=== PATIENT | female | born 1960 | race Caucasian/White ===

== ENCOUNTER 2017-06-21 06:54 | Emergency (ER) | payer MEDICARE, OTHER ==
[~2017-06-21] VITALS: Ht 167.6 cm; Wt 75.0 kg
[~2017-06-21 06:54] MED LIST: ALPR1 PO; AMBI5TAB PO; AMIT100 PO; AMLO5 PO; CEPH500 PO; CORE25TA PO; DIOV80TA4 PO; ESTR2TAB PO; LANTUS2P SC; LEXA20TA PO; LORTA5 PO; PLAV75TA PO; SITA100 PO; SYNT150T PO; ZANA4TAB PO
[2017-06-21 06:57] VITALS: BP 117/57; PULSE 62; RESP 16; TEMP 97.8; O2SAT 97
[2017-06-21] MEDS ORDERED: DIAZ5 PO (07:36)
[2017-06-21] MEDS ORDERED: ESTR2TAB4 PO (07:36)
[2017-06-21] MEDS ORDERED: HYDR-3583 PO (07:36)
[2017-06-21] MEDS ORDERED: VICT18IN SQ (07:36)
[2017-06-21] MEDS ORDERED: SYNT175T PO (07:36)
[2017-06-21] MEDS ORDERED: SITA25 PO (07:36)
[2017-06-21] MEDS ORDERED: SIMV10TA PO (07:36)
[2017-06-21] MEDS ORDERED: TIZA4CAP3 PO (07:36)
[2017-06-21] MEDS ORDERED: CARV6.25 PO (07:36)
[2017-06-21] MEDS ORDERED: LEXA20TA PO (07:36)
[2017-06-21] MEDS ORDERED: PANT20 PO (07:36)
[2017-06-21] MEDS ORDERED: AMBI10TA PO (07:36)
[2017-06-21] MEDS ORDERED: AMLO10TA2 PO (07:36)
[2017-06-21] MEDS ORDERED: PLAV75TA29 PO (07:36)
[2017-06-21] MEDS ORDERED: ASPI81CH CHEW (07:36)
--- NOTE | 2017-06-21 08:11 | PD ---
HPI Chief Complaint: Pain: Acute or Chronic Time Seen by Provider: 08:07 Travel History International Travel<30 days: No Contact w/Intl Traveler<30days: No Traveled to known affect area: No History of Present Illness HPI 56-year-old female patient with history of chronic neck pain and back pains, presents to the ER today because she states that she has had 2 weeks' history of left-sided neck pain radiating to the left scalp and forehead area which worsened after she fell 2 weeks ago. She states that the left side of her forehead is numb. She has been getting Botox for this issue in the past. She states that she had chills several nights ago but denies any fevers or any other symptoms. Modifying Factors: None Associated Signs & Symptoms: Left-sided neck and head pain, acute on chronic Risk Factors: Chronic neck pains and headache PFSH Past Medical History Cardiac Catheterization: Yes (10/2011) High Cholesterol: Yes Cirrhosis: Yes (ALEXANDRE) Coronary Artery Disease: Yes Diabetes: Yes Patient Takes Glucophage: No Hypertension: Yes Respiratory: Yes (-2011) Renal Failure: Yes Thyroid Disease: Yes (HYPO) ?: Not Menopausal: Yes Past Surgical History Cholecystectomy: Yes (01/2012) Coronary Artery Bypass Graft: Yes (-2011) Coronary Stent: Yes () Hysterectomy: Yes (1993) Tonsillectomy: Yes (1971) Social History Alcohol Use: No Tobacco Use: No Substance Use: No Allergies-Medications (Allergen,Severity, Reaction): Coded Allergies: butorphanol (Unverified Allergy, Severe, Hallucinations, 06/21/17) codeine (Unverified Allergy, Severe, Hives, 06/21/17) fentanyl (Unverified Allergy, Severe, Confusion, 06/21/17) morphine (Unverified Allergy, Severe, Hallucinations, 06/21/17) Reported Meds & Prescriptions Reported Meds & Active Scripts Active Reported Victoza Inj (Liraglutide Inj) 18 Mg/3 Ml Pen 1.8 Mg SQ DAILY Aspirin 81 Mg Chew 81 Mg CHEW DAILY Plavix (Clopidogrel Bisulfate) 75 Mg Tab 75 Mg PO DAILY Tizanidine (Tizanidine HCl) 4 Mg Cap 4 Mg PO TID Valium (Diazepam) 5 Mg Tab 5 Mg PO BID PRN Ambien (Zolpidem Tartrate) 10 Mg Tab 10 Mg PO HS PRN Lexapro (Escitalopram Oxalate) 20 Mg Tab 20 Mg PO DAILY Protonix (Pantoprazole Sodium) 20 Mg Tab 20 Mg PO DAILY Simvastatin 10 Mg Tab 10 Mg PO DAILY Amlodipine (Amlodipine Besylate) 10 Mg Tab 10 Mg PO DAILY Coreg (Carvedilol) 6.25 Mg Tab 6.25 Mg PO BID Hydrocodone-Acetaminophen 10-325 mg Tab 1 Tab PO Q4H PRN Synthroid (Levothyroxine Sodium) 175 Mcg Tab 175 Mcg PO DAILY Estrace (Estradiol) 2 Mg Tab 2 Mg PO DAILY Januvia (Sitagliptin Phosphate) 25 Mg Tab 25 Mg PO DAILY Review of Systems Except as stated in HPI: all other systems reviewed are Neg Physical Exam Narrative GENERAL: Well-developed middle age white female patient currently in mild distress. Awake and oriented 3. SKIN: Focused skin assessment warm/dry. HEAD: Atraumatic. Normocephalic. EYES: Pupils equal and round. No scleral icterus. No injection or drainage. ENT: No nasal bleeding or discharge. Mucous membranes pink and moist. NECK: Trachea midline. No JVD. Supple. No midline C-spine tenderness or step- offs. CARDIOVASCULAR: Regular rate and rhythm. No murmur appreciated. RESPIRATORY: No accessory muscle use. Clear to auscultation. Breath sounds equal bilaterally. GASTROINTESTINAL: Abdomen soft, non-tender, nondistended. Hepatic and splenic margins not palpable. MUSCULOSKELETAL: No obvious deformities. No clubbing. No cyanosis. No edema. NEUROLOGICAL: Awake and alert. No obvious cranial nerve deficits. Motor grossly within normal limits. Normal speech. PSYCHIATRIC: Appropriate mood and affect; insight and judgment normal. Data Data Last Documented VS Vital Signs Date Time Temp Pulse Resp B/P (MAP) Pulse Ox O2 Delivery O2 Flow Rate FiO2 06/21/17 06:57 97.8 62 16 117/57 (77) 97 Orders Orders Ketorolac Inj (Toradol Inj) (06/21/17 08:15) Ct Brain W/O Iv Contrast(Rout) (06/21/17 08:07) Ct Cerv Spine W/O Contrast (06/21/17 08:07) Hydromorphone Pf Inj (Dilaudid Pf Inj) (06/21/17 10:00) Ondansetron Inj (Zofran Inj) (06/21/17 10:00) MDM Medical Decision Making Medical Screen Exam Complete: Yes Emergency Medical Condition: Yes Medical Record Reviewed: Yes Interpretation(s) Last [address] 06/21/17 08 Signed Impressions: Service Date/Time: Wednesday, June 21, 2017 08:37 - CONCLUSION: No acute disease. Elie Jimenez Jr., MD Cervical Spine CT 06/21/17 0807 Signed Impressions: Service Date/Time: Wednesday, June 21, 2017 08:40 - CONCLUSION: No acute bony findings. Disc osteophyte complexes at C5-6 and C6-7 producing a mild-moderate degree of anatomic compromise which appear slightly more severe at the C5-6 level than the C6-7 level and asymmetric to the right. Further evaluation with MRI of the cervical spine on an elective basis would be suggested if clinically indicated Héctor Lubin MD Differential Diagnosis Headache and neck pain: Cervical radiculopathy versus muscle strain versus acute on chronic headaches versus acute fractures Narrative Course CT the of the brain did not show any signs of acute intracranial processes and CT of the neck shows severe degenerative disease which is consistent with previous history. I do not see any signs of acute injuries. At this point, it appears that the patient has an acute on chronic process and my plan would be to give her symptomatic relief or pain and have her follow-up with her primary care doctor regarding this issue. She can get MRI on an outpatient basis for further evaluation. We will give her further symptomatic relief or pain. Diagnosis Primary Impression: Neck strain Med/Other Pt SpecificInfo: Prescription(s) given, Med Stopped (do not take at the same time with Lortab tens) Scripts Hydrocodone-Acetaminophen (Lortab) 7.5-325 Mg Tab 1-2 TAB PO Q6H Y for PAIN, #12 TAB 0 Refills Prov: Jas Jaimes MD 06/21/17 Disposition: 01 DISCHARGE HOME Condition: Stable Jas Jaimes MD Jun 21, 2017 08:11
[2017-06-21] MEDS ORDERED: KETOROLAC TROMETHAMINE 60 MG/2 ML (IM) VIAL IM ONE (08:15)
--- NOTE | 2017-06-21 09:13 | RADRPT ---
EXAM DATE/TIME: 06/21/2017 08:40 [facility] COMPARISON: No previous studies available for comparison. INDICATIONS : Left-sided neck pain. RADIATION DOSE: 33.29 CTDIvol (mGy) MEDICAL HISTORY : Hypertension. Cardiovascular disease SURGICAL HISTORY : CABG Tonsillectomy. ENCOUNTER: Initial ACUITY: 2 weeks PAIN SCALE: 5/10 LOCATION: Left neck TECHNIQUE: Volumetric scanning of the cervical spine was performed. Multiplanar reconstructions in the sagittal, coronal and oblique axial planes were performed. Using automated exposure control and adjustment o f the mA and/or kV according to patient size, radiation dose was kept as low as reasonably achievable to obtain optimal diagnostic quality images. DICOM format image data is available electronically f or review and comparison. FINDINGS: VERTEBRAE: Normal vertebral body height. ALIGNMENT: No evidence of subluxation. C2-C3: The bony spinal canal is normal in size. No evidence of disc bulge or herniation. The neural forami na are bilaterally patent. C3-C4: The bony spinal canal is normal in size. No evidence of disc bulge or herniation. The neural forami na are bilaterally patent. C4-C5: The bony spinal canal is normal in size. No evidence of disc bulge or herniation. The neural forami na are bilaterally patent. C5-C6: Broad dorsal disc osteophyte, eccentric to the right with moderate indentation of thecal sac and mode rate asymmetrically right-sided foraminal stenosis. C6-C7: Broad dorsal disc osteophyte producing moderate indentation of the thecal sac. Slight bilateral sierra inal narrowing. C7-T1: The bony spinal canal is normal in size. No evidence of disc bulge or herniation. The neural forami na are bilaterally patent. CONCLUSION: No acute bony findings. Disc osteophyte complexes at C5-6 and C6-7 producing a mild-moderate degree of anatomic compromise wh ich appear slightly more severe at the C5-6 level than the C6-7 level and asymmetric to the right. Further evaluation with MRI of the cervical spine on an elective basis would be suggested if clinical ly indicated Héctor Lubin MD on June 21, 2017 at 9:06 Board Certified Radiologist. This report was verified electronically.
--- NOTE | 2017-06-21 09:13 | RADRPT ---
EXAM DATE/TIME: 06/21/2017 08:37 [facility] COMPARISON: No previous studies available for comparison. INDICATIONS : Left-sided headache. RADIATION DOSE: 56.35 CTDIvol (mGy) MEDICAL HISTORY : Hypertension. Cardiovascular disease SURGICAL HISTORY : CABG Tonsillectomy. ENCOUNTER: Initial ACUITY: 2 weeks PAIN SCALE: 4/10 LOCATION: Left cranial TECHNIQUE: Multiple contiguous axial images were obtained of the head. Using automated exposure control and adj ustment of the mA and/or kV according to patient size, radiation dose was kept as low as reasonably a chievable to obtain optimal diagnostic quality images. DICOM format image data is available electro nically for review and comparison. FINDINGS: CEREBRUM: An old small lacunar infarction involving the left basal ganglia. The ventricles are normal for age. No evidence of midline shift, mass lesion, hemorrhage or acute infarction. No extra-axial fluid col lections are seen. POSTERIOR FOSSA: The cerebellum and brainstem are intact. The 4th ventricle is midline. The cerebellopontine angle i s unremarkable. EXTRACRANIAL: The visualized portion of the orbits is intact. SKULL: The calvaria is intact. No evidence of skull fracture. CONCLUSION: No acute disease. Elie Jimenez Jr., MD on June 21, 2017 at 9:10 Board Certified Radiologist. This report was verified electronically.
[2017-06-21] MEDS ORDERED: HYDR-3534 PO (09:59)
[2017-06-21] MEDS ORDERED: ONDANSETRON HCL 4 MG/2 ML VIAL IM ONE (10:00)
[2017-06-21] MEDS ORDERED: HYDROmorphone HCL PF 1 MG/ML VIAL IM ONE (10:00)
== END 2017-06-21 10:47 | disposition home or self-care (01) ==
LOC: NEPE 06:54
DX: S16.1XXA Strain of muscle, fascia and tendon at neck level, initial encounter (principal); K74.60 Unspecified cirrhosis of liver; I25.10 Atherosclerotic heart disease of native coronary artery without angina pectoris; E11.22 Type 2 diabetes mellitus with diabetic chronic kidney disease; I12.9 Hypertensive chronic kidney disease with stage 1 through stage 4 chronic kidney disease, or unspecified chronic kidney disease; N18.9 Chronic kidney disease, unspecified; W19.XXXA Unspecified fall, initial encounter; Z79.02 Long term (current) use of antithrombotics/antiplatelets; Z79.82 Long term (current) use of aspirin
CPT/HCPCS: 70450; 72125; 96372; 99285; J1170; J1885; J2405

== ENCOUNTER 2017-06-27 01:32 | Inpatient (IN) | payer OTHER, MEDICARE ==
[2017-06-27] VITALS (14 sets, daily range): BP systolic 149–192; BP diastolic 70–95; PULSE 62–82; RESP 12–22; TEMP 97.9–98.4; O2SAT 94–99
[~2017-06-27] VITALS: Ht 167.6 cm; Wt 73.6 kg
[~2017-06-27 01:32] MED LIST changes: -ALPR1 PO; +AMBI10TA PO; -AMBI5TAB PO; -AMIT100 PO; +AMLO10TA2 PO; -AMLO5 PO; +ASPI81CH CHEW; +CARV6.25 PO; -CEPH500 PO; -CORE25TA PO; +DIAZ5 PO; -DIOV80TA4 PO; -ESTR2TAB PO; +ESTR2TAB4 PO; +HYDR-3534 PO; +HYDR-3583 PO; -LANTUS2P SC; -LORTA5 PO; +PANT20 PO; -PLAV75TA PO; +PLAV75TA29 PO; +SIMV10TA PO; -SITA100 PO; +SITA25 PO; -SYNT150T PO; +SYNT175T PO; +TIZA4CAP3 PO; +VICT18IN SQ; -ZANA4TAB PO
[2017-06-27] MEDS ORDERED: NITROGLYCERIN 0.4 MG SL 25 TABS/BTL SL ONE (03:00)
[2017-06-27] MEDS ORDERED: ASPIRIN 81 MG CHEW TAB PO ONE (03:00)
--- NOTE | 2017-06-27 03:42 | PD ---
HPI Chief Complaint: Chest Pain Time Seen by Provider: 02:55 Travel History International Travel<30 days: No Contact w/Intl Traveler<30days: No Traveled to known affect area: No History of Present Illness HPI The patient is a 56 year old female who presents to the [facility] emergency department with a history of chest pain that began last night around 6 -7 PM. The pain is sharp and like a muscle cramping sensation. The pain radiates into the left shoulder. She has had associated SOB, nausea, and chills with the chest pain. She denies any diaphoresis. She has a h/o a coronary artery disease with two stents being placed by Dr. Hyde in 11/2016 and coronary artery bypass grafting of 4 vessels prior to that. She is on aspirin and Plavix. She reports that she has not been eating well or sleeping well since she fell and hit her head and injured her neck a week ago. She reports that she believes that this is what is triggering her chest pain. She denies having any numbness or tingling to her arms or legs. 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 The patient followed up with her primary care physician, Dr. Oliveira and was referred to Dr. Thurman. She has an appointment scheduled for later this week. On review of systems, the patient denies any known recent fevers, cough, congestion, chest pain, shortness of breath, abdominal pain, vomiting, diarrhea , loss of bowel or bladder control, or neurologic symptoms. FORMERLY [facility], [facility]–1983 Past Medical History Narrative Medical The patient's past medical history is significant for chronic neck pain with her last Botox injection done 7 months ago, history of coronary artery disease status post coronary artery bypass grafting and 2 stents placed in November 2016 , hyperlipidemia, history of hypertension, arthritis, history of diabetes mellitus, history of pulmonary embolism after cardiac surgery. Hx Anticoagulant Therapy: Yes (Plavix) Cardiac Catheterization: Yes Cardiovascular Problems: Yes (CABGx4 02/2005 with stent x4 11/2016, HTN) High Cholesterol: Yes Chest Pain: Yes Cirrhosis: Yes Coronary Artery Disease: Yes Diabetes: Yes Patient Takes Glucophage: Yes (06-26-17) Diminished Hearing: No Hypertension: Yes Respiratory: Yes (-2011) Migraines: Yes Renal Failure: Yes Thyroid Disease: Yes Tetanus Vaccination: < 5 Years Influenza Vaccination: Yes ?: Not Menopausal: Yes Past Surgical History Narrative Surgical The patient's past surgical history is significant for CABG 4 vs in 2011, history of cardiac catheterization with 2 stents placed in November 2016, history of cardiac ablation, History of lumbar spine surgery, history of cholecystectomy, tonsillectomy, hysterectomy. Cardiac Surgery: Yes Cholecystectomy: Yes Coronary Artery Bypass Graft: Yes (4 VESSELS-2011) Coronary Stent: Yes (X2-2011) Hysterectomy: Yes Tonsillectomy: Yes (1971) Social History Alcohol Use: No Tobacco Use: No Substance Use: No Allergies-Medications (Allergen,Severity, Reaction): Coded Allergies: butorphanol (Verified Allergy, Severe, Hallucinations, 06/27/17) codeine (Verified Allergy, Severe, Hives, 06/27/17) fentanyl (Verified Allergy, Severe, Confusion, 06/27/17) morphine (Verified Allergy, Severe, Hallucinations, 06/27/17) Reported Meds & Prescriptions Reported Meds & Active Scripts Active Reported Victoza Inj (Liraglutide Inj) 18 Mg/3 Ml Pen 1.8 Mg SQ DAILY Aspirin 81 Mg Chew 81 Mg CHEW DAILY Plavix (Clopidogrel Bisulfate) 75 Mg Tab 75 Mg PO DAILY Tizanidine (Tizanidine HCl) 4 Mg Cap 4 Mg PO TID Valium (Diazepam) 5 Mg Tab 5 Mg PO BID PRN Ambien (Zolpidem Tartrate) 10 Mg Tab 10 Mg PO HS PRN Lexapro (Escitalopram Oxalate) 20 Mg Tab 20 Mg PO DAILY Protonix (Pantoprazole Sodium) 20 Mg Tab 20 Mg PO DAILY Simvastatin 10 Mg Tab 10 Mg PO DAILY Amlodipine (Amlodipine Besylate) 10 Mg Tab 10 Mg PO DAILY Coreg (Carvedilol) 6.25 Mg Tab 6.25 Mg PO BID Hydrocodone-Acetaminophen 10-325 mg Tab 1 Tab PO Q4H PRN Synthroid (Levothyroxine Sodium) 175 Mcg Tab 175 Mcg PO DAILY Estrace (Estradiol) 2 Mg Tab 2 Mg PO DAILY Januvia (Sitagliptin Phosphate) 25 Mg Tab 25 Mg PO DAILY Review of Systems General / Constitutional: No: Fever Eyes: No: Visual changes HENT: Positive: Headaches, Neck Stiffness, Neck Pain Cardiovascular: Positive: Chest Pain or Discomfort Respiratory: Positive: Shortness of Breath Gastrointestinal: Positive: Nausea, Loss of Appetite, No: Vomiting, Diarrhea, Abdominal Pain Genitourinary: No: Dysuria Musculoskeletal: No: Pain Skin: No Rash Neurologic: No: Weakness, Focal Abnormalities, Change in Mentation, Slurred Speech, Sensory Disturbance Psychiatric: No: Depression Endocrine: No: Polydipsia Hematologic/Lymphatic: No: Easy Bruising Physical Exam Narrative General: The patient is well-developed well-nourished female in no acute distress. Head and Neck exam: Head is normocephalic atraumatic. Eyes: EOMI, pupils are equal round and reactive to light. Nose: Midline septum with pink mucous membranes Mouth: Dentition unremarkable. Moist mucus membranes. Posterior oropharynx is not erythematous. No tonsillar hypertrophy. Uvula midline. Airway patent. Neck: No palpable lymphadenopathy. No nuchal rigidity. No thyromegaly. No spinous process tenderness to palpation. No step-off or crepitus. No erythema or ecchymosis. The patient does have tenderness on palpation of the right paraspinal cervical musculature with spasm noted. Cardiovascular: Regular rate and rhythm without murmurs, gallops, or rubs. No pulse deficit to the extremities on simultaneous auscultation and palpation of her radial artery. Lungs: Clear to auscultation bilaterally. No wheezes, rhonchi, or rales. Abdomen: Soft, without tenderness to palpation in all 4 quadrants of the abdomen. No guarding, rebound, or rigidity. Normal bowel sounds are audible. No tenderness on palpation of McBurney's point. Extremities: No clubbing, cyanosis, or edema. 2+ pulses in all 4 extremities. No calf tenderness on palpation. Back: No spinous process tenderness to palpation. No costovertebral angle tenderness to palpation. Neurologic Exam: Cranial nerves 2-12 were intact on exam. Strength is 5/5 in all 4 extremities. No sensory deficits noted. No dysdiadochokinesis. Good finger to nose and Heel to irizarry bilaterally. Skin Exam: No rash noted. Intact skin that is warm and dry. Data Data Last Documented VS Vital Signs Date Time Temp Pulse Resp B/P (MAP) Pulse Ox O2 Delivery O2 Flow Rate FiO2 06/27/17 04:42 76 17 171/77 (108) 98 06/27/17 03:25 Nasal Cannula 06/27/17 01:36 97.9 Orders Orders Electrocardiogram (06/27/17 02:56) B-Type Natriuretic Peptide (06/27/17 02:56) Ckmb (Isoenzyme) Profile (06/27/17 02:56) Complete Blood Count With Diff (06/27/17 02:56) Comprehensive Metabolic Panel (06/27/17 02:56) Magnesium (Mg) (06/27/17 02:56) Prothrombin Time / Inr (Pt) (06/27/17 02:56) Act Partial Throm Time (Ptt) (06/27/17 02:56) Troponin I (06/27/17 02:56) Lipase (06/27/17 02:56) Chest, Single Ap (06/27/17 02:56) Ecg Monitoring (06/27/17 02:56) Bilateral Bp Monitoring (06/27/17 02:56) Iv Access Insert/Monitor (06/27/17 02:56) Oximetry (06/27/17 02:56) Oxygen Administration (06/27/17 02:56) Aspirin Chew (Aspirin Chew) (06/27/17 03:00) Sodium Chloride 0.9% Flush (Ns Flush) (06/27/17 03:00) Nitroglycerin Sl (Nitrostat Sl) (06/27/17 03:00) Hydromorphone Pf Inj (Dilaudid Pf Inj) (06/27/17 04:00) Ondansetron Inj (Zofran Inj) (06/27/17 04:00) Ct Brain W/O Iv Contrast(Rout) (06/27/17 05:18) Admit Order (Ed Use Only) (06/27/17 05:18) Labs Laboratory Tests Test 06/27/17 03:30 White Blood Count 9.1 TH/MM3 Red Blood Count 4.58 MIL/MM3 Hemoglobin 12.0 GM/DL Hematocrit 37.3 % Mean Corpuscular Volume 81.4 FL Mean Corpuscular Hemoglobin 26.2 PG Mean Corpuscular Hemoglobin Concent 32.2 % Red Cell Distribution Width 15.3 % Platelet Count 189 TH/MM3 Mean Platelet Volume 8.2 FL Neutrophils (%) (Auto) 61.4 % Lymphocytes (%) (Auto) 29.6 % Monocytes (%) (Auto) 6.6 % Eosinophils (%) (Auto) 1.3 % Basophils (%) (Auto) 1.1 % Neutrophils # (Auto) 5.6 TH/MM3 Lymphocytes # (Auto) 2.7 TH/MM3 Monocytes # (Auto) 0.6 TH/MM3 Eosinophils # (Auto) 0.1 TH/MM3 Basophils # (Auto) 0.1 TH/MM3 CBC Comment DIFF FINAL Differential Comment Prothrombin Time 11.1 SEC Prothromb Time International Ratio 1.0 RATIO Activated Partial Thromboplast Time 27.2 SEC Blood Urea Nitrogen 9 MG/DL Creatinine 1.15 MG/DL Random Glucose 125 MG/DL Total Protein 7.4 GM/DL Albumin 3.3 GM/DL Calcium Level 8.3 MG/DL Magnesium Level 1.8 MG/DL Alkaline Phosphatase 135 U/L Aspartate Amino Transf (AST/SGOT) 31 U/L Alanine Aminotransferase (ALT/SGPT) 27 U/L Total Bilirubin 0.4 MG/DL Sodium Level 137 MEQ/L Potassium Level 3.9 MEQ/L Chloride Level 103 MEQ/L Carbon Dioxide Level 25.7 MEQ/L Anion Gap 8 MEQ/L Estimat Glomerular Filtration Rate 49 ML/MIN Total Creatine Kinase 39 U/L Troponin I LESS THAN 0.02 NG/ML B-Type Natriuretic Peptide 65 PG/ML Lipase 176 U/L [facility] Medical Decision Making Medical Screen Exam Complete: Yes Emergency Medical Condition: Yes Medical Record Reviewed: Yes Interpretation(s) Last Impressions Head CT 06/27/17517 Signed Impressions: Service Date/Time: Tuesday, June 27, 2017 05:26 - CONCLUSION: 1. No acute intracranial abnormality. Fabrizio Salmon MD Chest X-Ray 06/27/17 0256 Signed Impressions: Service Date/Time: Tuesday, June 27, 2017 03:46 - CONCLUSION: 1. No acute cardiopulmonary disease. Fabrizio Salmon MD Differential Diagnosis Acute coronary syndrome, versus anxiety disorder, versus acid reflux, versus musculoskeletal strain Narrative Course During the course of the patients emergency department visit, the patients history, examination, and differential diagnosis were reviewed with the patient. The patient had IV access obtained and blood work sent for analysis. The patient had an ECG done on arrival that shows a sinus rhythm with a heart rate of 72, QRS duration is 99 ms, QTc is 454 ms without any acute ST segment changes. No acute ST segment elevation. T waves are inverted in lead 3, V1. The patient was initially provided hydromorphone for pain, Zofran for nausea. The patient was given aspirin 324 mg by mouth 1, sublingual nitroglycerin 1. It was our 1 inch the chest wall was applied. The patients laboratory studies were reviewed and remarkable for a white count of 9.1, hemoglobin 12, platelets 189 with a normal differential. CMP is remarkable for creatinine 1.15, glucose 125, calcium 8.3, alkaline phosphatase 135, troponin I less than 0.02, CPK 39, BNP is 65, lipase 176, PT 11.1, PTT 27.2. Radiology studies were reviewed and remarkable for a chest x-ray that shows no acute cardiopulmonary disease, and a CT scan of the brain that shows no acute intracranial abnormality. The patients results were discussed with the patient, including the plan of care. I explained that further testing and/ or monitoring is indicated based on the patients history, examination, and/ or laboratory findings. Therefore, I recommended admission for additional evaluation. The patient expressed understanding and was agreeable with this plan. The patient was admitted to the hospital in stable condition and sent to a bed under the care of the chest pain center. Diagnosis Primary Impression: Chest pain, rule out acute myocardial infarction Admitting Information Admitting Physician Requests: Pili Rajan MD Jun 27, 2017 03:42
[2017-06-27 03:57] LABS: AUTOMATED NEUTROPHIL # 5.6 TH/MM3 (1.8-7.7); BASOPHIL # 0.1 TH/MM3 (0-0.2); BASOPHIL % 1.1 % (0.0-2.0); EOSINOPHIL # 0.1 TH/MM3 (0-0.4); EOSINOPHIL % 1.3 % (0.0-4.0); HEMATOCRIT 37.3 % (35.0-46.0); HEMO FLAGS DIFF FINAL; LYMPH % 29.6 % (9.0-44.0); LYMPHOCYTE # 2.7 TH/MM3 (1.0-4.8); MEAN CELL VOLUME 81.4 FL (80.0-100.0); MEAN CORPUSCULAR HEMOGLOBIN 26.2 PG (27.0-34.0); MEAN CORPUSCULAR HGB CONC 32.2 % (32.0-36.0); MONO % 6.6 % (0.0-8.0); NEUT % 61.4 % (16.0-70.0); PLATELET COUNT 189 TH/MM3 (150-450); RED BLOOD COUNT 4.58 MIL/MM3 (4.00-5.30); RED CELL DISTRIBUTION WIDTH 15.3 % (11.6-17.2); WHITE BLOOD COUNT 9.1 TH/MM3 (4.0-11.0)
[2017-06-27] MEDS ORDERED: ONDANSETRON HCL 4 MG/2 ML VIAL IV PUSH ONE (04:00)
[2017-06-27] MEDS ORDERED: HYDROmorphone HCL PF 1 MG/ML VIAL IV PUSH ONE ×3 (04:00→13:00)
--- NOTE | 2017-06-27 04:02 | RADRPT ---
EXAM DATE/TIME: 06/27/2017 03:46 [facility] COMPARISON: No previous studies available for comparison. INDICATIONS : Chest pain. MEDICAL HISTORY : Cardiovascular disease. SURGICAL HISTORY : CABG. ENCOUNTER: Initial ACUITY: 1 day PAIN SCORE: 6/10 LOCATION: Bilateral chest FINDINGS: Median sternotomy wires in place. No significant focal pleural or parenchymal opacities. Cardiomedias tinal contours are within normal limits. Bony thorax is intact. CONCLUSION: 1. No acute cardiopulmonary disease. Fabrizio Salmon MD on June 27, 2017 at 4:00 Board Certified Radiologist. This report was verified electronically.
[2017-06-27 04:03] LABS: APTT (PATIENT) 27.2 SEC (24.3-30.1); PROTHROMBIN TIME - PATIENT 11.1 SEC (9.8-11.6)
[2017-06-27 04:15] LABS: ALT (GPT) 27 U/L (10-53); ANION GAP 8 MEQ/L (5-15); AST (GOT) 31 U/L (15-37); BICARBONATE 25.7 MEQ/L (21.0-32.0); BLOOD UREA NITROGEN 9 MG/DL (7-18); CHLORIDE 103 MEQ/L (98-107); GLOMERULAR FILTRATION RATE 49 ML/MIN (>89); MAGNESIUM 1.8 MG/DL (1.5-2.5); POTASSIUM 3.9 MEQ/L (3.5-5.1); SODIUM (NA) 137 MEQ/L (136-145)
[2017-06-27 04:18] LABS: ALKALINE PHOSPHATASE 135 U/L (45-117); TOTAL BILIRUBIN ADULT 0.4 MG/DL (0.2-1.0)
[2017-06-27 04:29] LABS: CREATINE KINASE 39 U/L (26-192)
[2017-06-27] MEDS: SODIUM CHLORIDE 0.9% FLUSH 10 ML FLUSH IVF PRN ×2 (04:33→05:59)
[2017-06-27] MEDS ORDERED: IOHEXOL 350 MG/ML 10 ML VIAL (for RAD DIAG) IVCONTRAST ONE (05:21)
--- NOTE | 2017-06-27 05:35 | RADRPT ---
EXAM DATE/TIME: 06/27/2017 05:26 [facility] COMPARISON: CT BRAIN W/O CONTRAST, June 21, 2017, 8:37. INDICATIONS : Cephalgia x1 week. RADIATION DOSE: 33.80 CTDIvol (mGy) MEDICAL HISTORY : Hypertension. Cardiovascular disease SURGICAL HISTORY : CABG Cholecystectomy.Hysterectomy. ENCOUNTER: Subsequent ACUITY: 1 week PAIN SCALE: 10/10 LOCATION: cranial TECHNIQUE: Multiple contiguous axial images were obtained of the head. Using automated exposure control and adj ustment of the mA and/or kV according to patient size, radiation dose was kept as low as reasonably a chievable to obtain optimal diagnostic quality images. DICOM format image data is available electro nically for review and comparison. FINDINGS: CEREBRUM: Mild diffuse cerebral volume loss. The ventricles are normal for degree of atrophy. No evidence of m idline shift, mass lesion, hemorrhage or acute infarction. No extra-axial fluid collections are seen . POSTERIOR FOSSA: The cerebellum and brainstem are intact. The 4th ventricle is midline. The cerebellopontine angle i s unremarkable. EXTRACRANIAL: The visualized portion of the orbits is intact. SKULL: The calvaria is intact. No evidence of skull fracture. CONCLUSION: 1. No acute intracranial abnormality. Fabrizio Salmon MD on June 27, 2017 at 5:32 Board Certified Radiologist. This report was verified electronically.
[2017-06-27] MEDS ORDERED: NITROGLYCERIN 2% OINT 1 GM PACKET TOPICAL ONE (05:45)
[2017-06-27] MEDS ORDERED: ONDANSETRON HCL 4 MG/2 ML VIAL IV PRN ×2 (06:00→17:30)
[2017-06-27] MEDS ORDERED: SODIUM CHLORIDE 0.9% FLUSH 10 ML FLUSH IV FLUSH PRN (06:00)
[2017-06-27 07:39] LABS: CREATINE KINASE 38 U/L (26-192)
[2017-06-27] MEDS: ACETAMINOPHEN/HYDROcodone 325 MG/7.5 MG TAB PO PRN (07:55)
--- NOTE | 2017-06-27 08:59 | HHI.HP ---
HPI Primary Care Physician Dr. Mcneill Chief Complaint Chest pain History of Present Illness 56-year-old female with history of coronary artery disease including CABG 2011 followed by 2 cardiac stents November 2016 presents to emergency room for further evaluation of chest pain. Onset yesterday 2 PM nonexertional. Location substernal. Described as pressure and she "felt smothered." No radiation of pain. Associated symptoms included nausea and shortness of breath. Denied vomiting or diaphoresis. Duration constant. Continues to have chest pressure. No known precipitating or relieving factors. Discomfort reminded her of previous cardiac pain prior to CABG and stents placed in November. Also reports severe neck and headache 3 weeks and reports she is currently being worked up for possible cervical surgery. Discomfort worsened with fall last week. Review of Systems General: Has not been in her general state of health, reports for past month limited activity due to chronic neck pain and headache. Following closely with her PCP, is scheduled for MRI of neck today. Referral to neurosurgeon previously placed, although states she would prefer to have surgery completed in [place] where she has family to assist her postop. No weakness, fever, chills, or recent illness. HEENT: GOEL 3--4 weeks, no vision changes CV: As stated above. Continues to have chest pressure No palpitations or dizziness RESP: No SOB, cough, wheeze, or history of asthma GI: Nausea resolved. No vomiting, bowel changes, diarrhea, pain, distention, melena, or blood in the stool. Decrease in appetite and is 4 days, reports 5 pound weight loss in this time. States lost of appetite due to pain. : No dysuria, no incontinence EXT: No lower leg edema, no paraesthesias, no saddle anesthesia MS: As stated above. Chronic neck and back pain prior to what is stated above. Over past 4 weeks worsening neck pain, with addition injury last week. She was sweeping the floor and her moved a chair. She did not notice chair and fell backwards on chair hitting neck. She was seen in ED, discharged home, and followed with PCP later that week. Pending MRI of cervical area, scheduled for today. No change in ROM. NEURO: No change in memory, dizziness, difficulty with balance, LOC, motor/ sensory deficits PSYCH: Current situational stress since November. 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 No suicidal ideation. SKIN: No rashes, no concerning lesions Past Family Social History Allergies: Coded Allergies: butorphanol (Verified Allergy, Severe, Hallucinations, 06/27/17) codeine (Verified Allergy, Severe, Hives, 06/27/17) fentanyl (Verified Allergy, Severe, Confusion, 06/27/17) morphine (Verified Allergy, Severe, Hallucinations, 06/27/17) Past Medical History Diabetes, hypertension, hyperlipidemia, PE status post CABG, 2 cardiac stents ( November 2016) Past Surgical History CABG 4 (2011), lumbar surgery, hysterectomy, cholecystectomy, tonsillectomy, cardiac ablation Reported Medications Reported Meds & Active Scripts Active Reported Victoza Inj (Liraglutide Inj) 18 Mg/3 Ml Pen 1.8 Mg SQ DAILY Aspirin 81 Mg Chew 81 Mg CHEW DAILY Plavix (Clopidogrel Bisulfate) 75 Mg Tab 75 Mg PO DAILY Tizanidine (Tizanidine HCl) 4 Mg Cap 4 Mg PO TID Valium (Diazepam) 5 Mg Tab 5 Mg PO BID PRN Ambien (Zolpidem Tartrate) 10 Mg Tab 10 Mg PO HS PRN Lexapro (Escitalopram Oxalate) 20 Mg Tab 20 Mg PO DAILY Protonix (Pantoprazole Sodium) 20 Mg Tab 20 Mg PO DAILY Simvastatin 10 Mg Tab 10 Mg PO DAILY Amlodipine (Amlodipine Besylate) 10 Mg Tab 10 Mg PO DAILY Coreg (Carvedilol) 6.25 Mg Tab 6.25 Mg PO BID Hydrocodone-Acetaminophen 10-325 mg Tab 1 Tab PO Q4H PRN Synthroid (Levothyroxine Sodium) 175 Mcg Tab 175 Mcg PO DAILY Estrace (Estradiol) 2 Mg Tab 2 Mg PO DAILY Januvia (Sitagliptin Phosphate) 25 Mg Tab 25 Mg PO DAILY Active Ordered Medications Current Medications Medications (Trade) Dose Ordered Sig/Juan Carlos Route Start Time Stop Time Status Last Admin (NS Flush) 2 ml UNSCH PRN IVF 06/27/17 03:00 06/27/17 05:59 (NS Flush) 2 ml UNSCH PRN IV FLUSH 06/27/17 06:00 (NS Flush) 2 ml BID IV FLUSH 06/27/17 09:00 ([place] 7.5-325 Mg) 1 tab Q4H PRN PO 06/27/17 06:00 06/27/17 07:55 (Zofran Inj) 4 mg Q6H PRN IV 06/27/17 06:00 Social History Known personal coronary artery disease, diabetes, hypertension, and hyperlipidemia. Lifelong nonsmoker. Denies any alcohol or illegal drug use. . Past cardiac testing 11/28/2016 Cardiac catheterization-(Dr. Rosario) Diagnostic Impression: 1. Successful stenting of left main and left anterior descending, confirmed with intravascular ultrasound. 2. Patent left internal mammary artery graft to the second diagonal branch.3. Patent saphenous vein graft to third diagonal branch.4. Patentsequential graft to the ramus and the first obtuse marginal. 5. Reserved left ventricular systolic wall motion. 6. 2+ aortic insufficiency. 7. IVUS [place] well deployed stents with no edge dissection. (Drug eluting stent ) 12/02/2016 Repeat cardiac catheterization for continued chest pain- (Dr. Rosario) Diagnostic Impression: 1. Left ventricular normal in size and systolic function with estimated LVEF of 55% to 60%. No pressure gradient across the aortic valve. 2. [place] RCA dominant vessel, ostial 40% stenosis, no significant angiographic disease noted.3. [place] thrombus and circumflex totally occluded in ostium. 4. [place] left main and LAD, patent stent from the left main to the mid distal LAD. The distal LAD is small caliber, with no angiographic disease. All stents seen are patent. 5. Patent small STEPHENSON to diagonal 2. 6. Patent SVG to diagonal 1. 7. sequential patent SVG to ramus and to OM. RECOMMENDATIONS: Excellent stent patency of left main and LAD. All 4 /4 grafts are patent. No intervention is indicated. Continue medical management. Patient did not follow-up with cardiology status post catheterization. Not seen in office since 2014 (per nurse Dr. Rosario's office). Physical Exam Vital Signs Vital Signs Date Time Temp Pulse Resp B/P (MAP) Pulse Ox O2 Delivery O2 Flow Rate FiO2 06/27/17 08:39 06/27/17 07:20 82 12 167/77 (107) 96 Room Air 06/27/17 05:47 76 17 149/70 (96) Room Air 06/27/17 04:42 76 17 171/77 (108) 98 06/27/17 03:25 171/77 (108) 06/27/17 03:25 17 Nasal Cannula 06/27/17 03:24 95 Nasal Cannula 06/27/17 03:22 70 17 168/79 (108) 06/27/17 03:16 Room Air 06/27/17 03:15 72 17 168/79 (108) 94 Room Air 06/27/17 01:36 97.9 82 17 192/91 (124) 95 Room Air Physical Exam GENERAL: Alert WN, WD, NAD, pleasant, female HEAD: NC, AT NECK: Supple, trachea midline, posterior cervical area nontender with palpation. Slightly edematous posterior cervical area without erythema or ecchymosis. CV: RRR, without murmur, rub, gallop, no JVD, S1-S2 no S3-S4. RESP: Clear lungs throughout bilateral, no crackles, wheeze, rhonchi, symmetrical chest rise, nonlabored, able to speak in full sentences ABD: Soft, NT, ND, no masses, positive bowel tones BACK: No scoliosis EXT: Pulses +24, no dependent edema MS: Normal tone 4 extremities, nontender, no obvious deformities, full range of motion NEURO: CN II through CN XII grossly intact, motor strength 5/5 PSYCH: A+O 3, flat affect, appropriate speech, appropriate mood and affect, insight and judgment SKIN: Normal turgor, normal texture, no lesions, no rashes, brisk cap refill, even hair distribution Laboratory Laboratory Tests Test 06/27/17 03:30 06/27/17 06:30 White Blood Count 9.1 Red Blood Count 4.58 Hemoglobin 12.0 Hematocrit 37.3 Mean Corpuscular Volume 81.4 Mean Corpuscular Hemoglobin 26.2 Mean Corpuscular Hemoglobin Concent 32.2 Red Cell Distribution Width 15.3 Platelet Count 189 Mean Platelet Volume 8.2 Neutrophils (%) (Auto) 61.4 Lymphocytes (%) (Auto) 29.6 Monocytes (%) (Auto) 6.6 Eosinophils (%) (Auto) 1.3 Basophils (%) (Auto) 1.1 Neutrophils # (Auto) 5.6 Lymphocytes # (Auto) 2.7 Monocytes # (Auto) 0.6 Eosinophils # (Auto) 0.1 Basophils # (Auto) 0.1 CBC Comment DIFF FINAL Differential Comment Prothrombin Time 11.1 Prothromb Time International Ratio 1.0 Activated Partial Thromboplast Time 27.2 Blood Urea Nitrogen 9 Creatinine 1.15 Random Glucose 125 Total Protein 7.4 Albumin 3.3 Calcium Level 8.3 Magnesium Level 1.8 Alkaline Phosphatase 135 Aspartate Amino Transf (AST/SGOT) 31 Alanine Aminotransferase (ALT/SGPT) 27 Total Bilirubin 0.4 Sodium Level 137 Potassium Level 3.9 Chloride Level 103 Carbon Dioxide Level 25.7 Anion Gap 8 Estimat Glomerular Filtration Rate 49 Total Creatine Kinase 39 38 Troponin I LESS THAN 0.02 LESS THAN 0.02 B-Type Natriuretic Peptide 65 Lipase 176 Result Diagram: 06/27/1732906/27/17329 Imaging Last Impressions Head CT 06/27/17517 Signed Impressions: Service Date/Time: Tuesday, June 27, 2017 05:26 - CONCLUSION: 1. No acute intracranial abnormality. Fabrizio Salmon MD Chest X-Ray 06/27/17 0256 Signed Impressions: Service Date/Time: Tuesday, June 27, 2017 03:46 - CONCLUSION: 1. No acute cardiopulmonary disease. Fabrizio Salmon MD Course EKG Normal sinus rhythm, incomplete right bundle branch block, nonspecific ST changes Caprini VTE Risk Assessment Caprini VTE Risk Assessment: Mod/High Risk (score >= 2) Caprini Risk Assessment Model Point Value = 1 Point Value = 2 Point Value = 3 Point Value = 5 Age 41-60 Minor surgery BMI > 25 kg/m2 Swollen legs Varicose veins or History of unexplained or recurrent spontaneous Oral contraceptives or hormone replacement Sepsis (< 1 month) Serious lung disease, including pneumonia (< 1 month) Abnormal pulmonary function Acute myocardial infarction Congestive heart failure (< 1 month) History of inflammatory bowel disease Medical patient at bed rest Age 61-74 Arthroscopic surgery Major open surgery (> 45 min) Laparoscopic surgery (> 45 min) Malignancy Confined to bed (> 72 hours) Immobilizing plaster cast Central venous access Age >= 75 History of VTE Family history of VTE Factor V Leiden Prothrombin [id number] Lupus anticoagulant Anticardiolipin antibodies Elevated serum homocysteine Heparin-induced thrombocytopenia Other congenital or acquired thrombophilia Stroke (< 1 month) Elective arthroplasty Hip, pelvis, or leg fracture Acute spinal cord injury (< 1 month) Prophylaxis Regimen Total Risk Factor Score Risk Level Prophylaxis Regimen 0-1 Low Early ambulation 2 Moderate Order ONE of the following: *Sequential Compression Device (SCD) *Heparin 5000 units SQ BID 3-4 Higher Order ONE of the following medications: *Heparin 5000 units SQ TID *Enoxaparin/Lovenox 40 mg SQ daily (WT < 150 kg, CrCl > 30 mL/min) *Enoxaparin/Lovenox 30 mg SQ daily (WT < 150 kg, CrCl > 10-29 mL/min) *Enoxaparin/Lovenox 30 mg SQ BID (WT < 150 kg, CrCl > 30 mL/min) AND/OR *Sequential Compression Device (SCD) 5 or more Highest Order ONE of the following medications: *Heparin 5000 units SQ TID (Preferred with Epidurals) *Enoxaparin/Lovenox 40 mg SQ daily (WT < 150 kg, CrCl > 30 mL/min) *Enoxaparin/Lovenox 30 mg SQ daily (WT < 150 kg, CrCl > 10-29 mL/min) *Enoxaparin/Lovenox 30 mg SQ BID (WT < 150 kg, CrCl > 30 mL/min) AND *Sequential Compression Device (SCD) Assessment and Plan Assessment and Plan #1 Chest pain-admitted to chest pain center. Ruled out with 3 sets of EKGs and cardiac enzymes. Seen and evaluated by Dr. Tiffanie Dumont. Will call Dr. Rosario office to notify acute care assistant of patients arrival to chest pain center. Discussed the likelihood of completing chemical stress test if she is ruled out later this afternoon. Patient agreeable to plan of care. #2 History of CAD-continue Plavix, Coreg, amlodipine, and aspirin. Will change simvastatin to atorvastatin at discharge. This is been discussed with patient in length. #3 Diabetes-SSI low dose coverage, hold oral anti-glycemic at this time, discussed starting an ELLIOT inhibitor at discharge for renal protection. #4 Cervical radiculopathy-Dilaudid 0.5mg IVP x1, reported relief in ED with Dilaudid. Continue follow-up appointments with PCP, neurosurgeon, and completing cervical MRI if stress test unremarkable. 0910-Called Dr. Rosario's office. Patient has not been seen since 2014 and did not follow-up status post cardiac catheterization. 1525-Stroke alert called after Lexiscan administered. Nuclear lab animal technologist reports patient complained of throat tightness and shortness of breath prior to unresponsiveness. Patient unresponsively and flaccid, [facility] nurse at bedside. Did not response to sternal rub. CT head stat, no acute findings. Updated neurologist in radiology with history. Dr. Dumont notified of stroke alert being called immediately. After Dr. Dumont arrived to hospital she also spoke with neurologist, followed by speaking with Dr. Diego who agrees to become patients attending. Patient navigator spoke with patient's who denies history of seizures but reports 10 year history of "blacking out" generally lasting 20 minutes. Leida Rinaldi Jun 27, 2017 08:59
[2017-06-27] MEDS ORDERED: ACETAMINOPHEN 500 MG CPLT PO PRN (09:00)
[2017-06-27] MEDS ORDERED: NON-FORMULARY DRUG (Levothyroxine (Synthroid) 175 MCG) PO SCH (09:00)
[2017-06-27] MEDS ORDERED: ASPIRIN 325 MG TAB PO SCH (09:00)
[2017-06-27] MEDS ORDERED: NITROGLYCERIN 0.4 MG SL 25 TABS/BTL SL PRN (09:00)
[2017-06-27] MEDS ORDERED: GLUCAGON 1 MG/ML VIAL OTHER PRN (09:15)
[2017-06-27] MEDS ORDERED: DEXTROSE 50% IN WATER 50 ML VIAL(D50) IV PRN (09:15)
[2017-06-27] MEDS: PANTOPRAZOLE SOD 20 MG DELAYED RELEASE TAB PO SCH (10:11)
[2017-06-27] MEDS: ESCITALOPRAM OXALATE 20 MG TAB PO SCH (10:11)
[2017-06-27] MEDS: SODIUM CHLORIDE 0.9% FLUSH 10 ML FLUSH IV FLUSH SCH ×2 (10:11→21:00)
[2017-06-27] MEDS: CLOPIDOGREL 75 MG TAB PO SCH (10:11)
[2017-06-27] MEDS: LEVOTHYROXINE SODIUM 100 MCG TAB PO SCH (10:15)
[2017-06-27] MEDS: LEVOTHYROXINE SODIUM 75 MCG TAB PO SCH (10:15)
[2017-06-27 10:38] LABS: CREATINE KINASE 35 U/L (26-192)
[2017-06-27] MEDS ORDERED: DIAZEPAM 5 MG TAB PO PRN (12:30)
[2017-06-27] MEDS ORDERED: LISI10TA3 PO (12:32)
[2017-06-27] MEDS ORDERED: ATOR20TA15 PO (12:32)
[2017-06-27] MEDS: INSULIN ASPART SUPPLEMENTAL SCALE SQ SCH ×3 (13:00→21:00)
[2017-06-27] MEDS ORDERED: REGADENOSON INJ 0.4 MG/5 ML SYR ONE (14:56)
[2017-06-27] MEDS ORDERED: AMINOPHYLLINE INJ 250 MG/10 ML VIAL ONE (15:17)
--- NOTE | 2017-06-27 15:53 | RADRPT ---
EXAM DATE/TIME: 06/27/2017 15:33 [facility] COMPARISON: CT BRAIN W/O CONTRAST, June 27, 2017, 5:26. INDICATIONS : Stroke Alert- Altered mental status. RADIATION DOSE: 34.56 CTDIvol (mGy) This report was called by Dr. Don to [facility] office at [id number] MEDICAL HISTORY : Non-responsive. SURGICAL HISTORY : Non-responsive. ENCOUNTER: Initial ACUITY: 1 day PAIN SCALE: Non-responsive LOCATION: Bilateral cranial TECHNIQUE: Multiple contiguous axial images were obtained of the head. Using automated exposure control and adj ustment of the mA and/or kV according to patient size, radiation dose was kept as low as reasonably a chievable to obtain optimal diagnostic quality images. DICOM format image data is available electro nically for review and comparison. FINDINGS: CEREBRUM: The ventricles are normal for age. No evidence of midline shift, mass lesion, hemorrhage or acute in farction. No extra-axial fluid collections are seen. POSTERIOR FOSSA: The cerebellum and brainstem are intact. The 4th ventricle is midline. The cerebellopontine angle i s unremarkable. EXTRACRANIAL: The visualized portion of the orbits is intact. SKULL: The calvaria is intact. No evidence of skull fracture. CONCLUSION: No acute intracranial abnormality. Findings were relayed by phone to Leida, the nurse practitioner at Dr. Ellis's office. Héctor Don MD on June 27, 2017 at 15:49 Board Certified Radiologist. This report was verified electronically.
[2017-06-27 16:03] LABS: AUTOMATED NEUTROPHIL # 5.7 TH/MM3 (1.8-7.7); BASOPHIL # 0.1 TH/MM3 (0-0.2); BASOPHIL % 0.7 % (0.0-2.0); EOSINOPHIL # 0.1 TH/MM3 (0-0.4); EOSINOPHIL % 1.2 % (0.0-4.0); HEMATOCRIT 40.2 % (35.0-46.0); HEMO FLAGS DIFF FINAL; I-STAT POTASSIUM 4.1 MMOL/L (3.5-4.9); I-STAT SODIUM 139 MMOL/L (138-146); LYMPH % 33.4 % (9.0-44.0); LYMPHOCYTE # 3.2 TH/MM3 (1.0-4.8); MEAN CELL VOLUME 81.4 FL (80.0-100.0); MEAN CORPUSCULAR HEMOGLOBIN 26.6 PG (27.0-34.0); MEAN CORPUSCULAR HGB CONC 32.7 % (32.0-36.0); MONO % 5.2 % (0.0-8.0); NEUT % 59.5 % (16.0-70.0); PLATELET COUNT 202 TH/MM3 (150-450); RED BLOOD COUNT 4.94 MIL/MM3 (4.00-5.30); RED CELL DISTRIBUTION WIDTH 15.4 % (11.6-17.2); WHITE BLOOD COUNT 9.6 TH/MM3 (4.0-11.0)
[2017-06-27 16:19] LABS: ANION GAP 7 MEQ/L (5-15); BICARBONATE 26.8 MEQ/L (21.0-32.0); BLOOD UREA NITROGEN 10 MG/DL (7-18); CHLORIDE 103 MEQ/L (98-107); GLOMERULAR FILTRATION RATE 50 ML/MIN (>89); SODIUM (NA) 137 MEQ/L (136-145)
--- NOTE | 2017-06-27 16:19 | RADRPT ---
EXAM DATE/TIME: 06/27/2017 15:54 [facility] COMPARISON: No previous studies available for comparison. INDICATIONS : Stroke Alert- Altered mental status. IV CONTRAST: 79 cc Omnipaque 350 (iohexol) IV RADIATION DOSE: 27.14 CTDIvol (mGy) ; Combined studies MEDICAL HISTORY : Non-responsive. SURGICAL HISTORY : Non-responsive. ENCOUNTER: Initial ACUITY: 1 day PAIN SCALE: Non-responsive LOCATION: Bilateral cranial TECHNIQUE: Volumetric scanning was performed using a multi-row detector CT scanner. The data was post processed with a variety of visualization algorithms including full volume maximum intensity projection, multi -planar sliding thin slab reformation, curved planar reformation, and surface rendering techniques. Using automated exposure control and adjustment of the mA and/or kV according to patient size, radiat ion dose was kept as low as reasonably achievable to obtain optimal diagnostic quality images. DICO M format image data is available electronically for review and comparison. FINDINGS: There is excellent visualization of the major intracranial arteries out to the second-order branch ve ssels. There is no evidence for aneurysm, vessel truncation or stenosis, and no evidence for vascula r malformation. The right vertebral artery is dominant. CONCLUSION: 1. Unremarkable CT angiography of the brain. Los Sanchez MD on June 27, 2017 at 16:16 Board Certified Radiologist. This report was verified electronically.
[2017-06-27 16:26] LABS: APTT (PATIENT) 28.4 SEC (24.3-30.1); PROTHROMBIN TIME - PATIENT 11.4 SEC (9.8-11.6)
--- NOTE | 2017-06-27 16:59 | EKG ---
Date Performed: 06/27/2017 Time Performed: 09:31:22 PTAGE: 56 years EKG: Sinus rhythm INCOMPLETE RIGHT BUNDLE BRANCH BLOCK BORDERLINE ECG Since PREVIOUS TRACING , no significant change noted PREVIOUS TRACIN06/27/2017 04.06 DOCTOR: Tiffanie Dumont Interpretating Date/Time 06/27/2017 16:58:25
--- NOTE | 2017-06-27 17:00 | EKG ---
Date Performed: 06/27/2017 Time Performed: 08:34:57 PTAGE: 56 years EKG: Sinus rhythm INCOMPLETE RIGHT BUNDLE BRANCH BLOCK BORDERLINE ECG Since PREVIOUS TRACING , no significant change noted PREVIOUS TRACIN06/16/2017 06.45 DOCTOR: Tiffanie Dumont Interpretating Date/Time 06/27/2017 16:59:22
--- NOTE | 2017-06-27 17:01 | EKG ---
Date Performed: 06/27/2017 Time Performed: 15:44:17 PTAGE: 56 years EKG: Sinus rhythm NONSPECIFIC T-WAVE ABNORMALITY BORDERLINE ECG Since PREVIOUS TRACING , no significant change noted DOCTOR: Tiffanie Dumont Interpretating Date/Time 06/27/2017 17:00:43
--- NOTE | 2017-06-27 17:01 | EKG ---
Date Performed: 06/27/2017 Time Performed: 04:06:39 PTAGE: 56 years EKG: Sinus rhythm NORMAL ECG Since PREVIOUS TRACING , no significant change noted PREVIOUS TRACIN04/09/2014 22.53 DOCTOR: Tiffanie Dumont Interpretating Date/Time 06/27/2017 17:00:14
--- NOTE | 2017-06-27 17:06 | RADRPT ---
EXAM DATE/TIME: 06/27/2017 14:05 [facility] COMPARISON: No previous studies available for comparison. INDICATIONS : Midsternal chest pain Angina. DOSE: 25.7 mCi Tc99m Myoview at stress. 8.1 mCi Tc99m Myoview at rest. 0.4 mg Lexiscan STRESS SYMPTOMS: Dyspnea and throat tightness. EJECTION FRACTION: > 70% MEDICAL HISTORY : Hypertension. SURGICAL HISTORY : CABG Coronary artery stent. Hysterectomy. ENCOUNTER: Initial ACUITY: 1 day PAIN SCALE: 7/10 LOCATION: Midsternal chest TECHNIQUE: The patient underwent pharmacologic stress with infusion of prescribed dose. Continuous ECG tracing was monitored during stress. Gated SPECT imaging was performed after stress and conventional SPECT i maging was performed at rest. The examination was performed on a SPECT/CT scanner, both attenuation and non-corrected datasets were reviewed. FINDINGS: DISTRIBUTION: The maximum perfused segment at stress is in the septal wall. PERFUSION STUDY: The pattern of perfusion at stress is within normal limits. GATED STUDY: There is intact wall motion and thickening without hypokinetic or dyskinetic segments. CONCLUSION: Normal examination. RISK CATEGORY: Low (<1% Annual Mortality Rate) Héctor Lubin MD on June 27, 2017 at 16:59 Board Certified Radiologist. This report was verified electronically.
--- NOTE | 2017-06-27 17:10 | RADRPT ---
EXAM DATE/TIME: 06/27/2017 15:54 [facility] COMPARISON: No previous studies available for comparison. INDICATIONS : Stroke Alert-Altered mental status. IV CONTRAST: 79 cc Omnipaque 350 (iohexol) IV RADIATION DOSE: 27.14 CTDIvol (mGy) MEDICAL HISTORY : Non-responsive. SURGICAL HISTORY : Non-responsive. ENCOUNTER: Initial ACUITY: 1 day PAIN SCALE: Non-responsive LOCATION: Bilateral cranial Elevated flow velocities and ICA/CCA ratios have been found to correlate with increased degrees of vessel stenosis, calculated as percentage of diameter relative to a normal segment of distal ICA/CCA. TECHNIQUE: Volumetric scanning was performed using a multirow detector CT scanner. The data was post processed with a variety of visualization algorithms including full-volume maximum intensity projection, multip lanar sliding thin-slab reformation, curved-planar reformation, and surface-rendering techniques. Us ing automated exposure control and adjustment of the mA and/or kV according to patient size, radiatio n dose was kept as low as reasonably achievable to obtain optimal diagnostic quality images. DICOM f ormat image data is available electronically for review and comparison. FINDINGS: AORTIC ARCH: There is a three-vessel origin of the great vessels from the aorta. No evidence of ostial narrowing. RIGHT CAROTID: Minimal eccentric plaquing present proximally within the ICA without evidence of associated stenosis. Remainder of the vessel widely patent to the skull base. LEFT CAROTID: Minimal eccentric calcific plaquing in the proximal internal carotid artery producing very minimal st enotic narrowing estimated less than 20 %. Remainder of the vessel widely patent to the skull base. VERTEBRALS: The vertebral arteries are patent bilaterally, right side dominant. No stenotic lesions are seen. CONCLUSION: No significant carotid stenosis Héctor Lubin MD on June 27, 2017 at 17:04 Board Certified Radiologist. This report was verified electronically.
--- NOTE | 2017-06-27 17:28 | HHI.HP ---
[facility] Service Critical Care Medicine Primary Care Physician Unknown Admission Diagnosis CP R/O OR, h/o CAD Diagnosis: (1) Syncope and collapse Diagnosis: Principal (2) Chest pain, rule out acute myocardial infarction Diagnosis: Principal Chief Complaint: Stroke alert Travel History International Travel<30 Days: No Contact w/Intl Traveler <30 Da: No Traveled to Known Affected Are: No History of Present Illness 56 y/o woman with recent neck injury from falling backward against a chair a month ago came to the ED complaining of neck pain and chest pain that began last night around 6-7 PM, radiates into the left shoulder. She has had associated SOB, nausea, and chills with the chest pain. She denies any diaphoresis. She has a h/o a coronary artery disease with two stents being placed by Dr. Hyde in 11/2016 and coronary artery bypass grafting of 4 vessels prior to that. She is on aspirin and Plavix. She reports that she has not been eating well or sleeping well since she fell and hit her head and injured her neck a week ago. She reports that she believes that this is what is triggering her chest pain. She denies having any numbness or tingling to her arms or legs. 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 The patient followed up with her primary care physician, Dr. Oliveira and was referred to Dr. Thurman. She has an appointment scheduled for later this week. On review of systems, the patient denies any known recent fevers, cough, congestion, chest pain, shortness of breath, abdominal pain, vomiting, diarrhea, loss of bowel or bladder control, or neurologic symptoms. She ruled out for OR by troponions X 3, underwent nuclide cardiac stress test and shortly after start received a bronchodilator. She became unresponsive and a stroke alert was called. CTs and CTAs neck and head all negative for stenosis , clot, or CVA. No tPA. Nuclide test was completed showing 70% EF and no perfusion defects or wall motion problems. 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 States she can't take fentanyl, mosrphine, or codeine. She has to get dilaudid for pain. Presently a seizure evaluation EEG is underway. Review of Systems Respiratory: COMPLAINS OF: Shortness of breath Cardiovascular: COMPLAINS OF: Chest pain, Syncope, Dyspnea on Exertion Psychiatric: COMPLAINS OF: Anxiety, Confusion Past Family Social History Allergies: Coded Allergies: butorphanol (Verified Allergy, Severe, Hallucinations, 06/27/17) codeine (Verified Allergy, Severe, Hives, 06/27/17) fentanyl (Verified Allergy, Severe, Confusion, 06/27/17) morphine (Verified Allergy, Severe, Hallucinations, 06/27/17) Physical Exam Vital Signs Vital Signs Date Time Temp Pulse Resp B/P (MAP) Pulse Ox O2 Delivery O2 Flow Rate FiO2 06/27/17 12:02 75 06/27/17 11:15 97.9 76 16 177/83 (114) 96 06/27/17 08:39 06/27/17 07:38 71 06/27/17 07:20 82 12 167/77 (107) 96 Room Air 06/27/17 05:47 76 17 149/70 (96) Room Air 06/27/17 04:42 76 17 171/77 (108) 98 06/27/17 03:25 171/77 (108) 06/27/17 03:25 17 Nasal Cannula 06/27/17 03:24 95 Nasal Cannula 06/27/17 03:22 70 17 168/79 (108) 06/27/17 03:16 Room Air 06/27/17 03:15 72 17 168/79 (108) 94 Room Air 06/27/17 01:36 97.9 82 17 192/91 (124) 95 Room Air Physical Exam Gen: Alert, conversant Head: Normal, atraumatic. Neck: Supple with some restriction from pain. Lungs: Clear, no adventitious sounds. Heart: NL S1S2, RRR, No JVD Abdomen: Benign, soft Extremities: Warm, well perfused. Neuro: O X 3, alert, Speech clear. M/S grossly intact. Laboratory Laboratory Tests Test 06/27/17 03:30 06/27/17 06:30 06/27/17 09:40 06/27/17 15:42 White Blood Count 9.1 9.6 Red Blood Count 4.58 4.94 Hemoglobin 12.0 13.2 Hematocrit 37.3 40.2 Mean Corpuscular Volume 81.4 81.4 Mean Corpuscular Hemoglobin 26.2 26.6 Mean Corpuscular Hemoglobin Concent 32.2 32.7 Red Cell Distribution Width 15.3 15.4 Platelet Count 189 202 Mean Platelet Volume 8.2 8.1 Neutrophils (%) (Auto) 61.4 59.5 Lymphocytes (%) (Auto) 29.6 33.4 Monocytes (%) (Auto) 6.6 5.2 Eosinophils (%) (Auto) 1.3 1.2 Basophils (%) (Auto) 1.1 0.7 Neutrophils # (Auto) 5.6 5.7 Lymphocytes # (Auto) 2.7 3.2 Monocytes # (Auto) 0.6 0.5 Eosinophils # (Auto) 0.1 0.1 Basophils # (Auto) 0.1 0.1 CBC Comment DIFF FINAL DIFF FINAL Differential Comment Prothrombin Time 11.1 11.4 Prothromb Time International Ratio 1.0 1.0 Activated Partial Thromboplast Time 27.2 28.4 Blood Urea Nitrogen 9 10 Creatinine 1.15 1.12 Random Glucose 125 103 Total Protein 7.4 Albumin 3.3 Calcium Level 8.3 8.4 Magnesium Level 1.8 Alkaline Phosphatase 135 Aspartate Amino Transf (AST/SGOT) 31 Alanine Aminotransferase (ALT/SGPT) 27 Total Bilirubin 0.4 Sodium Level 137 137 Potassium Level 3.9 4.0 Chloride Level 103 103 Carbon Dioxide Level 25.7 26.8 Anion Gap 8 7 Estimat Glomerular Filtration Rate 49 50 Total Creatine Kinase 39 38 35 35 Troponin I LESS THAN 0.02 LESS THAN 0.02 LESS THAN 0.02 LESS THAN 0.02 B-Type Natriuretic Peptide 65 Lipase 176 Bedside Hemoglobin 14.3 Bedside Hematocrit 42.0 Fibrinogen 309 Bedside Sodium 139 Bedside Potassium 4.1 Bedside Chloride 101 Bedside Blood Urea Nitrogen 10 Bedside Creatinine 1.1 Bedside Glucose 107 Result Diagram: 06/27/17 1542 06/27/17 1542 Caprini VTE Risk Assessment Caprini VTE Risk Assessment: Mod/High Risk (score >= 2) Caprini Risk Assessment Model Point Value = 1 Point Value = 2 Point Value = 3 Point Value = 5 Age 41-60 Minor surgery BMI > 25 kg/m2 Swollen legs Varicose veins or History of unexplained or recurrent spontaneous Oral contraceptives or hormone replacement Sepsis (< 1 month) Serious lung disease, including pneumonia (< 1 month) Abnormal pulmonary function Acute myocardial infarction Congestive heart failure (< 1 month) History of inflammatory bowel disease Medical patient at bed rest Age 61-74 Arthroscopic surgery Major open surgery (> 45 min) Laparoscopic surgery (> 45 min) Malignancy Confined to bed (> 72 hours) Immobilizing plaster cast Central venous access Age >= 75 History of VTE Family history of VTE Factor V Leiden Prothrombin [id number] Lupus anticoagulant Anticardiolipin antibodies Elevated serum homocysteine Heparin-induced thrombocytopenia Other congenital or acquired thrombophilia Stroke (< 1 month) Elective arthroplasty Hip, pelvis, or leg fracture Acute spinal cord injury (< 1 month) Prophylaxis Regimen Total Risk Factor Score Risk Level Prophylaxis Regimen 0-1 Low Early ambulation 2 Moderate Order ONE of the following: *Sequential Compression Device (SCD) *Heparin 5000 units SQ BID 3-4 Higher Order ONE of the following medications: *Heparin 5000 units SQ TID *Enoxaparin/Lovenox 40 mg SQ daily (WT < 150 kg, CrCl > 30 mL/min) *Enoxaparin/Lovenox 30 mg SQ daily (WT < 150 kg, CrCl > 10-29 mL/min) *Enoxaparin/Lovenox 30 mg SQ BID (WT < 150 kg, CrCl > 30 mL/min) AND/OR *Sequential Compression Device (SCD) 5 or more Highest Order ONE of the following medications: *Heparin 5000 units SQ TID (Preferred with Epidurals) *Enoxaparin/Lovenox 40 mg SQ daily (WT < 150 kg, CrCl > 30 mL/min) *Enoxaparin/Lovenox 30 mg SQ daily (WT < 150 kg, CrCl > 10-29 mL/min) *Enoxaparin/Lovenox 30 mg SQ BID (WT < 150 kg, CrCl > 30 mL/min) AND *Sequential Compression Device (SCD) Assessment and Plan Assessment and Plan Assessment: 1. Chest pain. 2. Neck pain. 3. Syncope and collapse. 4. Previous neck injury from fall. 5. Hypertension. Plan: 1. Usual ICU protocols. 2. Neurology Consult. 3. Dilaudid prn pain. 4. Start lopressor and lisinopril. Overall impression: Patient states she has cardiac syncope from glossopharyngeal neuralgia. Stroke workup is negative. Cardiac workup is negative. Andrew Barry MD Jun 27, 2017 17:28
[2017-06-27] MEDS ORDERED: ACETAMINOPHEN 325 MG TAB PO PRN (17:30)
[2017-06-27] MEDS ORDERED: MISCELLANEOUS NURSING INFORMATION XX SCH (17:30)
[2017-06-27] MEDS ORDERED: ZOLPIDEM TARTRATE 10 MG TAB PO PRN (17:30)
[2017-06-27] MEDS ORDERED: CHLORHEXIDINE GLUCONATE 2 % 1 PACK (2 CLOTHS) TOP PRN (17:30)
[2017-06-27] MEDS ORDERED: BISACODYL 10 MG SUPP RECTAL PRN (17:30)
[2017-06-27] MEDS ORDERED: MAGNESIUM HYDROXIDE SUSP 30 ML CUP PO PRN (17:30)
[2017-06-27] MEDS ORDERED: LABETALOL HCL 100 MG/20 ML VIAL IV PUSH PRN (17:30)
[2017-06-27] MEDS ORDERED: SENNOSIDES 8.6 MG TAB PO PRN (17:30)
[2017-06-27] MEDS ORDERED: LACTULOSE SYRUP 20 GM/30 ML CUP PO PRN (17:30)
[2017-06-27] MEDS ORDERED: hydrALAZINE HCL 20 MG/ML VIAL IV PUSH PRN (17:30)
[2017-06-27] MEDS ORDERED: POTASSIUM PHOSPHATE MONOBASIC 500 MG TAB PO/TUBE PRN (17:38)
[2017-06-27] MEDS ORDERED: POTASSIUM PHOSPHATE INJ 30 MMOL in SODIUM CHLOR 0.9% 250 ML INJ 250 ML IV PRN (17:38)
[2017-06-27] MEDS ORDERED: POTASSIUM CHLORIDE 25 MEQ EFFERVESCENT TAB PO PRN (17:45)
[2017-06-27] MEDS ORDERED: MAGNESIUM SULFATE INJ 2 GM in SODIUM CHLORIDE 0.9% INJ 96 ML IV PRN (17:45)
[2017-06-27] MEDS ORDERED: POTASSIUM CHLOR 20 MEQ PREMIX 100 ML IV PRN ×2 (17:45)
[2017-06-27] MEDS ORDERED: POTASSIUM PHOSPHATE MONOBASIC 500 MG TAB PO PRN (17:45)
[2017-06-27] MEDS ORDERED: POTASSIUM CHLOR 40 MEQ PREMIX 100 ML IV PRN ×2 (17:45)
[2017-06-27] MEDS ORDERED: SODIUM PHOSPHATE INJ 30 MMOL in SODIUM CHLOR 0.9% 250 ML INJ 240 ML IV PRN (17:45)
[2017-06-27] MEDS ORDERED: MAGNESIUM OXIDE 400 MG TAB PO PRN (17:45)
[2017-06-27] MEDS ORDERED: MAGNESIUM SULFATE INJ 4 GM in SODIUM CHLORIDE 0.9% INJ 92 ML IV PRN (17:45)
[2017-06-27] MEDS: METOPROLOL TARTRATE 25 MG TAB PO SCH ×2 (19:49→20:44)
[2017-06-27] MEDS: HYDROmorphone HCL PF 1 MG/ML VIAL IV PUSH PRN ×2 (19:50→23:41)
[2017-06-27] MEDS ORDERED: ENOXAPARIN SODIUM 40 MG/0.4 ML SYRINGE SQ SCH (20:00)
[2017-06-27 20:41] LABS: MAGNESIUM 1.9 MG/DL (1.5-2.5)
[2017-06-27] MEDS: SODIUM CHLOR 0.9% 1000 ML INJ 1,000 ML IV SCH (21:00)
[2017-06-27] MEDS: FAMOTIDINE 20 MG TAB PO SCH (21:01)
[2017-06-27] MEDS: DOCUSATE SODIUM 50 MG/SENNA 8.6 MG TAB PO SCH (21:01)
[2017-06-27] MEDS: LISINOPRIL 5 MG TAB PO SCH (21:04)
--- NOTE | 2017-06-27 21:23 | MG ---
cc: COURT WEBBER MD Lab No: [id number] Date: 06/27/17 Age: 56 Sex: F Race: DATE OF 1960 A 56-year-old history of neuro changes, twitching. Posterior rhythm demonstrates 8-10 Hz alpha activity, 20-50 microvolts, low amplitude beta and myogenic frequencies in the frontal channels. Good EEG variability, reactivity. Reasonable driving with photic stimulation. Bursts of high low amplitude theta occurring at times. Bursts are rhythmic theta, mild phase reversal occurring at P3 EPOCH 79. rapid eye movement, blink artifact. Single lead EKG showing sinus rhythm. Reasonable driving with photic stimulation in the beginning of the recording. INTERPRETATION Minimal nonspecific changes noted above, slightly higher faster frequencies which may be pharmaceutical effect. Otherwise, stable normal EEG. Clinical correlation. Court Webber MD MG/EO /8:37 PM /9:05 PM MTDTova
[2017-06-28] VITALS (8 sets, daily range): BP systolic 138–162; BP diastolic 67–75; PULSE 61–68; RESP 12–20; TEMP 97.5–98.2; O2SAT 91–98
[2017-06-28] MEDS ORDERED: CHLORHEXIDINE GLUCONATE 2 % 1 PACK (2 CLOTHS) TOP SCH (04:00)
[2017-06-28] MEDS: HYDROmorphone HCL PF 1 MG/ML VIAL IV PUSH PRN ×3 (04:14→12:57)
[2017-06-28] MEDS: LEVOTHYROXINE SODIUM 75 MCG TAB PO SCH (06:04)
[2017-06-28] MEDS: ACETAMINOPHEN/HYDROcodone 325 MG/7.5 MG TAB PO PRN (06:04)
[2017-06-28] MEDS: LEVOTHYROXINE SODIUM 100 MCG TAB PO SCH (06:04)
[2017-06-28] MEDS: INSULIN ASPART SUPPLEMENTAL SCALE SQ SCH ×2 (07:00→11:00)
[2017-06-28] MEDS ORDERED: ACETAMINOPHEN 325 MG TAB PO PRN (07:15)
[2017-06-28] MEDS: SODIUM CHLOR 0.9% 1000 ML INJ 1,000 ML IV SCH (07:20)
[2017-06-28] MEDS: SODIUM CHLORIDE 0.9% FLUSH 10 ML FLUSH IV FLUSH SCH (08:41)
[2017-06-28] MEDS: FAMOTIDINE 20 MG TAB PO SCH (08:41)
[2017-06-28] MEDS: CLOPIDOGREL 75 MG TAB PO SCH (08:41)
[2017-06-28] MEDS: ESCITALOPRAM OXALATE 20 MG TAB PO SCH (08:41)
[2017-06-28] MEDS: PANTOPRAZOLE SOD 20 MG DELAYED RELEASE TAB PO SCH (08:42)
[2017-06-28] MEDS: DOCUSATE SODIUM 50 MG/SENNA 8.6 MG TAB PO SCH (08:42)
[2017-06-28] MEDS: LISINOPRIL 5 MG TAB PO SCH (08:42)
[2017-06-28] MEDS: METOPROLOL TARTRATE 25 MG TAB PO SCH (08:44)
[2017-06-28] MEDS ORDERED: ASPIRIN 81 MG CHEW TAB CHEW SCH (09:00)
--- NOTE | 2017-06-28 11:39 | TR ---
Date Performed: 06/27/2017 Time Performed: 15:06:16 DOCTOR: [place] Gregg DRUG LIST: CLINICAL HISTORY: CHEST PAIN REASON FOR TEST: CHEST PAIN REASON FOR ENDING: OBSERVATION: CONCLUSION: Lexiscan stress test was performed under standard four minute protocol. Radionuclid e was injected one minute prior to ending the test. No electrocardiographic abormalities were present to suggest ischemia. Nuclear imaging and interpretation are pending. COMMENTS:
--- NOTE | 2017-06-28 15:11 | MB ---
IN ERROR MTDD
--- NOTE | 2017-06-28 15:11 | MB ---
cc: JR BLACK MD DATE OF CONSULTATION: 06/27/2017 REASON FOR CONSULTATION: Stroke Alert HISTORY OF PRESENT ILLNESS Ms. Coker is a 56-year-old female with past medical history of coronary artery disease, coronary artery bypass graft times, followed by two cardiac stents who presented to the emergency room for evaluation of chest pain. While she was undergoing the stress test, a stroke alert was called when the patient was found to be unresponsive and unable to move four extremities. During initial encounter when I saw the patient a few minutes after the alert was called as I was already in the hospital, the patient was responsive, talking with a soft voice, alert, aware, oriented, unable to lift all her extremities. She states she is weak and she tells me that she was diagnosed with glossopharyngeal neuralgia and she gets cardiac syncope/vasovagal attacks when she has pain. The patient received Aminophylline IV during the test. Initial impression was possible convulsive syncope secondary to a possible adverse reaction to this medication. The patient was diagnosed with glossopharyngeal neuralgia as she states and gets cardiac syncope when she has pain. The patient has recently sustained a neck injury. I talked to the while the patient was undergoing a head CT scan and he states that she had had vasovagal attacks, syncope, three to four times while she had the stress test and this is not new. Head CT scan did not show any acute intracranial abnormality. The patient had rapid recovery with NIH stroke scale of less than 4, thus, she does not meet the criteria for TPA. I ordered a stat EEG for possible seizure. The patient will be admitted for further stroke workup. REVIEW OF SYSTEMS: A 12 point review of systems is negative except for what is stated in the HPI. PAST MEDICAL HISTORY: 1. Diabetes. 2. Hypertension. 3. Hyperlipidemia. 4. PE, status post CABG. 5. Cardiac stents. 6. Glossopharyngeal neurology. 7. Vasovagal attacks. PAST SURGICAL HISTORY: 1. CABG. 2. Lumbar surgery. 3. Hysterectomy. 4. Cholecystectomy. 5. Tonsillectomy. 6. Cardiac ablation. ALLERGIES: BUTORPHANOL CODEINE FENTANYL MORPHINE MEDICATIONS: 1. Victoza 2. Aspirin 3. Plavix 4. Tizanidine 5. Valium 6. Ambien 7. Lexapro 8. Protonix 9. Simvastatin 10. Amlodipine 11. Coreg. 12. Hydrocodone. 13. Acetaminophen 14. Synthroid 15. Januvia. 17. Estrace. SOCIAL HISTORY Denies smoking, alcohol or illicit drug abuse. FAMILY HISTORY Noncontributory PHYSICAL EXAMINATION: GENERAL: Awake, alert, oriented, speaks in a soft voice, anxious. Repeatedly asks me and the staff to call her which we did. HEENT: Atraumatic, normocephalic. Intact hearing. Intact vision. Respiratory: Clear lungs. No wheezes. Cardiovascular: Sinus tachycardia. Abdomen: Soft. No tenderness. Extremities. No leg edema. No deformity. Neuro: Awake, alert, oriented to place,person and time, no dysarthria, no dysphasia, cranial nerves II-XII are grossly intact. Motor system exam muscle strength 5/5 throughout, b/l and symmetrical, normal tone, no abnormal movements , sensation is intact to light touch, pain and temperature throughout, intact cerebellar functions. Diagnostic imaging: - Head CT scan w/o c revealed no acute intracranial abnormality or bleeding - EEG was unremarkable Assessment and Plan: A stroke alert, NIHSS is 0, rapid recovery of symptoms, deemed not a candidate for iv thrombolysis. Other possible etiologies: Vaso-vagal syncope s/p pain, glossopharyngeal neuralgia, a diagnosis given to the patient. A convulsive vs non-convulsive syncope secondary to Aminophylline injection as an adverse effect is a less likely possibility. Admit for further stroke work up Neuro-checks Q1 h Aspirin 81mg Telemetry MRI brain w/o contrast DVT prophylaxis Speech evaluation MD TIMOTHY Amin/SMITHA /6:15 PM /3:05 PM GREG
--- NOTE | 2017-06-28 15:52 | RADRPT ---
EXAM DATE/TIME: 06/28/2017 14:12 [facility] COMPARISON: No previous studies available for comparison. INDICATIONS : CVA. MEDICAL HISTORY : Hypertension, Cardiovascular Disease, DM SURGICAL HISTORY : CABG Tonsillectomy. Cholecystectomy. ENCOUNTER: Subsequent ACUITY: 1 week PAIN SCORE: 0/10 LOCATION: cranial TECHNIQUE: Multiplanar, multisequence MRI of the brain was performed without contrast. FINDINGS: CEREBRUM: The ventricles are normal for age. No evidence of midline shift, mass lesion, hemorrhage or acute in farction. No extraaxial fluid collections are seen. The pituitary gland and suprasellar cistern are normal in configuration. WHITE MATTER: No significant signal abnormalities are seen in the white matter. POSTERIOR FOSSA: The cerebellum and brainstem are intact. The 4th ventricle is midline. The cerebellopontine angle is unremarkable. The cerebellar tonsils are normal in position. DIFFUSION IMAGING: No focal areas of restricted diffusion are seen. No evidence of acute infarction. EXTRACRANIAL: The visualized portions of the orbits and paranasal sinuses are unremarkable. CONCLUSION: Negative noncontrast MRI brain. Elie Anthony MD on June 28, 2017 at 15:49 Board Certified Radiologist. This report was verified electronically.
--- NOTE | 2017-06-28 16:16 | HHI.DCPOC ---
Discharge Care Plan Additional Problems dehydration Goals to Promote Your Health * To prevent worsening of your condition and complications * To maintain your health at the optimal level Directions to Meet Your Goals Take your medications as prescribed Follow your dietary instruction Follow activity as directed Keep your appointments as scheduled Take your immunizations and boosters as scheduled If your symptoms worsen call your PCP, if no PCP go to Urgent Care Center or Emergency Room Smoking is Dangerous to Your Health. Avoid second hand smoke Call the 24-hour hour crisis hotline for domestic abuse at Enoch Andrews MD Jun 28, 2017 16:15
--- NOTE | 2017-06-28 16:20 | HHI.DS ---
Discharge Summary Admission Date Jun 27, 2017 at 17:38 Discharge Date: Jun 28, 2017 Admitting Diagnosis CP R/O OR, h/o CAD (1) Syncope and collapse ICD Code: R55 - Syncope and collapse Diagnosis: Principal (2) Chest pain, rule out acute myocardial infarction ICD Code: R07.9 - Chest pain, unspecified Diagnosis: Principal Status: Acute Procedures cardiac nuclear stress test (negative), EEG (negative). Brief History - From Admission 56 y/o woman with recent neck injury from falling backward against a chair a month ago came to the ED complaining of neck pain and chest pain that began last night around 6-7 PM, radiates into the left shoulder. She has had associated SOB, nausea, and chills with the chest pain. She denies any diaphoresis. She has a h/o a coronary artery disease with two stents being placed by Dr. Hyde in 11/2016 and coronary artery bypass grafting of 4 vessels prior to that. She is on aspirin and Plavix. She reports that she has not been eating well or sleeping well since she fell and hit her head and injured her neck a week ago. She reports that she believes that this is what is triggering her chest pain. She denies having any numbness or tingling to her arms or legs. 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 The patient followed up with her primary care physician, Dr. Oliveira and was referred to Dr. Thurman. She has an appointment scheduled for later this week. On review of systems, the patient denies any known recent fevers, cough, congestion, chest pain, shortness of breath, abdominal pain, vomiting, diarrhea, loss of bowel or bladder control, or neurologic symptoms. She ruled out for OR by troponions X 3, underwent nuclide cardiac stress test and shortly after start received a bronchodilator. She became unresponsive and a stroke alert was called. CTs and CTAs neck and head all negative for stenosis , clot, or CVA. No tPA. Nuclide test was completed showing 70% EF and no perfusion defects or wall motion problems. 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 States she can't take fentanyl, mosrphine, or codeine. She has to get dilaudid for pain. Presently a seizure evaluation EEG is underway. CBC/BMP: 06/27/17 1542 06/27/17 1542 Significant Findings Laboratory Tests Test 06/27/17 03:30 06/27/17 06:30 06/27/17 09:40 06/27/17 15:42 Mean Corpuscular Hemoglobin 26.2 PG (27.0-34.0) 26.6 PG (27.0-34.0) Creatinine 1.15 MG/DL (0.50-1.00) 1.12 MG/DL (0.50-1.00) Random Glucose 125 MG/DL (74-106) Albumin 3.3 GM/DL (3.4-5.0) Calcium Level 8.3 MG/DL (8.5-10.1) 8.4 MG/DL (8.5-10.1) Alkaline Phosphatase 135 U/L (45-117) Estimat Glomerular Filtration Rate 49 ML/MIN (>89) 50 ML/MIN (>89) Troponin I LESS THAN 0.02 NG/ML LESS THAN 0.02 NG/ML LESS THAN 0.02 NG/ML LESS THAN 0.02 NG/ML Bedside Creatinine 1.1 MG/DL (0.6-1.0) Bedside Glucose 107 MG/DL (60-95) Hospital Course Patient was admitted emergently to chest pain center, underwent a nuclear stress test (cardiac, was negative), and shortly afterwards she had a syncopal episode. Neurology was consulted and evaluated the patient, patient had cranial imaging done which showed no acute findings. EEG was performed which also was unremarkable. Brain MRI was done which showed no acute findings suggestive of any cause. Patient was afocal during her episode and quickly returned to her baseline. Patient tolerated her meals well and was able to ambulate without any further episodes of lightheadedness or syncope. Discussed case with neurology, pending no acute findings on imaging and EEG, patient stable for discharge. Patient has met maximum benefit from hospitalization and is currently stable for discharge. She has verbalized understanding to follow- up with her neurologist and her primary care doctor. Pt Condition on Discharge: Stable Discharge Disposition: Discharge Home Discharge Time: > 30 minutes Discharge Instructions DIET: Follow Instructions for: Heart Healthy Diet Activities you can perform: See Additionl Instruction Other Activity Instructions: no operating of heavy machinery no driving Follow up Referrals: Neurology - 2 Weeks PCP Follow-up - 1 Year New Medications: Atorvastatin (Atorvastatin) 20 Mg Tab 20 MG PO HS for Cholesterol Management, #30 TAB 1 Refill Lisinopril (Lisinopril) 10 Mg Tab 10 MG PO DAILY, #30 TAB 1 Refill Continued Medications: Amlodipine (Amlodipine) 10 Mg Tab 10 MG PO DAILY for Blood Pressure Management, #30 TAB 0 Refills Aspirin (Aspirin) 81 Mg Chew 81 MG CHEW DAILY, TAB 0 Refills Carvedilol (Coreg) 6.25 Mg Tab 6.25 MG PO BID, #60 TAB 0 Refills Clopidogrel (Plavix) 75 Mg Tab 75 MG PO DAILY for Blood Clot Prevention, #30 TAB 0 Refills Diazepam (Valium) 5 Mg Tab 5 MG PO BID PRN for ANXIETY, TAB 0 Refills Escitalopram (Lexapro) 20 Mg Tab 20 MG PO DAILY, #30 TAB 0 Refills Estradiol (Estrace) 2 Mg Tab 2 MG PO DAILY for Estrogen Supplements, #30 TAB 0 Refills Hydrocodone-Acetaminophen (Hydrocodone-Acetaminophen) 10-325 mg Tab 1 TAB PO Q4H PRN for PAIN, TAB 0 Refills Levothyroxine (Synthroid) 175 Mcg Tab 175 MCG PO DAILY for Thyroid, #30 TAB 0 Refills Liraglutide Inj (Victoza Inj) 18 Mg/3 Ml Pen 1.8 MG SQ DAILY, #1 PEN 0 Refills Pantoprazole (Protonix) 20 Mg Tab 20 MG PO DAILY for Reflux, #30 TAB 0 Refills Sitagliptin (Januvia) 25 Mg Tab 25 MG PO DAILY for Blood Sugar Management, #30 TAB 0 Refills Tizanidine (Tizanidine) 4 Mg Cap 4 MG PO TID for Muscle Spasm, CAP 0 Refills Zolpidem (Ambien) 10 Mg Tab 10 MG PO HS PRN for INSOMNIA, TAB 0 Refills Enoch Andrews MD Jun 28, 2017 16:20
--- NOTE | 2017-06-28 17:55 | HHI.PR ---
Review/Management Diagnosis Vaso vagal episode Likely secondary to pain,stress Recurrent episodes as reported by patient and her H/o glossopharyngeal neuralgia H/o CAD Plan Stable neurologic exam, non-focal Neurologic investigations are unremarkable for an acute neurologic abnormality I explained to the patient the nature of the episode and the findings at the neurologic investigations May follow up with outpatient neurology Please call for questions Diagnosis/Plan: Subjective Subjective Comments No acute events reported No new complaint MRI brain is unremarkable for an acute intracranial abnormality EEG is unremarkable Active Medications Current Medications Medications (Trade) Dose Ordered Sig/Juan Carlos Route Start Time Stop Time Status Last Admin (NS Flush) 2 ml UNSCH PRN IV FLUSH 06/27/17 06:00 (NS Flush) 2 ml BID IV FLUSH 06/27/17 09:00 06/27/17 10:11 ([place] 7.5-325 Mg) 1 tab Q4H PRN PO 06/27/17 06:00 06/28/17 06:04 (Tylenol) 500 mg Q4H PRN PO 06/27/17 09:00 (Nitrostat Sl) 0.4 mg Q5M PRN SL 06/27/17 09:00 (Norvasc) 10 mg DAILY PO 06/27/17 09:00 06/28/17 08:41 (Plavix) 75 mg DAILY PO 06/27/17 09:00 06/28/17 08:41 (Lexapro) 20 mg DAILY PO 06/27/17 09:00 06/28/17 08:41 (Protonix) 20 mg DAILY PO 06/27/17 09:00 06/28/17 08:42 (D50w (Vial) Inj) 50 ml UNSCH PRN IV 06/27/17 09:15 (Glucagon Inj) 1 mg UNSCH PRN OTHER 06/27/17 09:15 (NovoLOG SUPPLEMENTAL SCALE) 1 ACHS SLIDING SCALE SQ 06/27/17 11:00 06/28/17 11:00 (Synthroid) 100 mcg DAILY@0600 PO 06/27/17 09:30 06/28/17 06:04 (Synthroid) 75 mcg DAILY@0600 PO 06/27/17 09:30 06/28/17 06:04 (Valium) 5 mg BID PRN PO 06/27/17 12:30 06/27/17 13:28 (Aspirin Chew) 81 mg DAILY CHEW 06/28/17 09:00 06/28/17 08:41 (Ambien) 10 mg HS PRN PO 06/27/17 17:30 06/27/17 21:01 (Lopressor) 25 mg Q12HR PO 06/27/17 18:00 06/28/17 08:44 (Prinivil) 5 mg DAILY PO 06/27/17 20:00 06/28/17 08:42 (Apresoline Inj) 10 mg Q2H PRN IV PUSH 06/27/17 17:30 (Trandate Inj) 20 mg Q2H PRN IV PUSH 06/27/17 17:30 Sodium Chloride 1,000 ml @ 75 mls/hr [id number] IV 06/27/17 18:00 06/28/17 07:20 (Pepcid) 20 mg Q12HR PO 06/27/17 21:00 06/28/17 08:41 (Zofran Inj) 4 mg Q6H PRN IV 06/27/17 17:30 (Lovenox Inj) 40 mg Q24H SQ 06/27/17 20:00 06/27/17 21:01 Miscellaneous Information 1 [id number] XX 06/27/17 17:30 (Chlorhexidine 2% Cloth) 3 pack Taper DAILY@04 TOP 06/28/17 04:00 06/24/18 03:59 (Chlorhexidine 2% Cloth) 3 pack UNSCH PRN TOP 06/27/17 17:30 (Masha-Colace) 1 tab BID PO 06/27/17 21:00 06/27/17 21:01 (Milk Of Magnesia Liq) 30 ml Q12H PRN PO 06/27/17 17:30 (Senokot) 17.2 mg Q12H PRN PO 06/27/17 17:30 (Dulcolax Supp) 10 mg DAILY PRN RECTAL 06/27/17 17:30 (Lactulose Liq) 30 ml DAILY PRN PO 06/27/17 17:30 (Dilaudid Pf Inj) 0.5 mg Q4H PRN IV PUSH 06/27/17 17:45 06/28/17 12:57 Potassium Chloride 100 ml @ 50 mls/hr Q2H PRN IV 06/27/17 17:45 Potassium Chloride 100 ml @ 50 mls/hr Q2H PRN IV 06/27/17 17:45 (K-Lyte Cl Eff) 50 meq UNSCH PRN PO 06/27/17 17:45 Potassium Chloride 100 ml @ 25 mls/hr UNSCH PRN IV 06/27/17 17:45 Potassium Chloride 100 ml @ 50 mls/hr Q2H PRN IV 06/27/17 17:45 Magnesium Sulfate 4 gm/Sodium Chloride 100 ml @ 50 mls/hr UNSCH PRN IV 06/27/17 17:45 (Mag-Ox) 800 mg UNSCH PRN PO 06/27/17 17:45 Magnesium Sulfate 2 gm/Sodium Chloride 100 ml @ 50 mls/hr UNSCH PRN IV 06/27/17 17:45 (K-Phos) 2,000 mg Q4H PRN PO 06/27/17 17:45 Sodium Phosphate 30 mmol/Sodium Chloride 250 ml @ 42 mls/hr UNSCH PRN IV 06/27/17 17:45 (K-Phos) 2,000 mg UNSCH PRN PO/TUBE 06/27/17 17:38 Potassium Phosphate 30 mmol/ Sodium Chloride 260 ml @ 42 mls/hr UNSCH PRN IV 06/27/17 17:38 (Tylenol) 650 mg Q6H PRN PO 06/28/17 07:15 Allergies Allergies Coded Allergies butorphanol (Verified Allergy, Severe, Hallucinations, 06/27/17) codeine (Verified Allergy, Severe, Hives, 06/27/17) fentanyl (Verified Allergy, Severe, Confusion, 06/27/17) morphine (Verified Allergy, Severe, Hallucinations, 06/27/17) Review of Systems All other ROS: ROS reviewed as documented in chart Exam I&O / VS Vital Signs Date Time Temp Pulse Resp B/P (MAP) Pulse Ox O2 Delivery O2 Flow Rate FiO2 06/28/17 09:39 94 21 06/28/17 08:00 97.5 63 16 162/72 (102) 06/28/17 07:00 93 Nasal Cannula 2.00 06/28/17 06:00 61 06/28/17 04:00 98.0 68 12 162/75 (104) 94 06/28/17 04:00 68 06/28/17 02:00 68 06/28/17 00:00 64 06/28/17 00:00 98.0 64 20 138/73 (94) 91 06/27/17 22:00 62 06/27/17 20:00 98.4 74 15 184/95 (124) 97 06/27/17 20:00 74 06/27/17 17:57 98.4 77 22 180/86 (117) 99 General: Alert and Oriented, No acute distress Eye: PERRL, EOMI Respiratory: Lungs CTA, Non-labored respirations Cardiology: Normal rate, Intact pulses Musculoskeletal: ROM Neurologic: Alert, Oriented, Normal sensory, Normal motor, No focal defects, CN II-XII intact, Gag reflex normal, Normal DTR's Psychiatric: Cooperative, Appropriate mood & affect Objective Radiology Results Last 72 hours Impressions Brain MRI 06/28/17 0000 Signed Impressions: Service Date/Time: Wednesday, June 28, 2017 14:12 - CONCLUSION: Negative noncontrast MRI brain. Elie Anthony MD Head CT 06/27/17 1527 Signed Impressions: Service Date/Time: Tuesday, June 27, 2017 15:33 - CONCLUSION: No acute intracranial abnormality. Findings were relayed by phone to Leida, the nurse practitioner at Dr. Ellis's office. Héctor Don MD Head CT 06/27/17 0518 Signed Impressions: Service Date/Time: Tuesday, June 27, 2017 05:26 - CONCLUSION: 1. No acute intracranial abnormality. Fabrizio Salmon MD Chest X-Ray 06/27/17 0256 Signed Impressions: Service Date/Time: Tuesday, June 27, 2017 03:46 - CONCLUSION: 1. No acute cardiopulmonary disease. Fabrizio Salmon MD Neck CTA 06/27/17 0000 Signed Impressions: Service Date/Time: Tuesday, June 27, 2017 15:54 - CONCLUSION: No significant carotid stenosis Héctor Lubin MD Myocardial Perfusion Scan Nuc Med 06/27/17 0000 Signed Impressions: Service Date/Time: Tuesday, June 27, 2017 14:05 - CONCLUSION: Normal examination. RISK CATEGORY: Low (<1%% Annual Mortality Rate) Héctor Lubin MD Head CTA 06/27/17 0000 Signed Impressions: Service Date/Time: Quin, June 27, 2017 15:54 - CONCLUSION: 1. Unremarkable CT angiography of the brain. Los Sanchez MD Ossi,Hermann Kwong MD Jun 28, 2017 17:55
== END 2017-06-28 19:43 | disposition home or self-care (01) | DRG 312 ==
LOC: NEPC 01:32 → NEDA 05:20 → NEPFCDU 08:45 → N03A 16:44 → OBSVTOIN 17:38
PROVIDERS: ADMIT Hospitalist; ATTEND Hospitalist
DX: R55 Syncope and collapse (principal); E11.9 Type 2 diabetes mellitus without complications; E78.5 Hyperlipidemia, unspecified; G89.29 Other chronic pain; I25.10 Atherosclerotic heart disease of native coronary artery without angina pectoris; G43.909 Migraine, unspecified, not intractable, without status migrainosus; I45.10 Unspecified right bundle-branch block; M54.12 Radiculopathy, cervical region; G52.1 Disorders of glossopharyngeal nerve; Z79.82 Long term (current) use of aspirin; Z79.02 Long term (current) use of antithrombotics/antiplatelets; Z95.1 Presence of aortocoronary bypass graft; Z95.5 Presence of coronary angioplasty implant and graft; Z86.711 Personal history of pulmonary embolism
CPT/HCPCS: 70450; 70496; 70498; 70551; 71010; 78452; 80048; 80053; 82435; 82550; 82565; 82947; 82948; 83690; 83735; 83880; 84100; 84132; 84295; 84484; 84520; 85025; 85384; 85610; 85730; 86850; 86900; 86901; 93005; 93017; 95819; 96374; 96375; A9502; J0280; J1170; J1650; J1815; J2405; J2785; J7030; Q9967

== ENCOUNTER 2017-09-28 02:46 | Emergency (ER) | payer MEDICARE, OTHER ==
[~2017-09-28] VITALS: Ht 167.6 cm; Wt 73.0 kg
[~2017-09-28 02:46] MED LIST changes: +ASPI-516 CHEW; -ASPI81CH CHEW; +DILA2TAB4 PO; -HYDR-3534 PO; -SIMV10TA PO
[2017-09-28 02:47] VITALS: BP 123/60; PULSE 71; RESP 16; TEMP 97.9; O2SAT 95
[2017-09-28] MEDS ORDERED: KETOROLAC TROMETHAMINE 60 MG/2 ML (IM) VIAL IM ONE (03:15)
[2017-09-28] MEDS ORDERED: ORPHENADRINE INJ 60 MG/2 ML AMP IM ONE (03:15)
[2017-09-28] MEDS ORDERED: methylPREDNISolone SOD SUCC 125 MG/2 ML VIAL IM ONE (03:15)
[2017-09-28] MEDS ORDERED: LIDO1PAD52 TOPICAL (03:17)
[2017-09-28] MEDS ORDERED: MEDR4PAK PO (03:17)
--- NOTE | 2017-09-28 03:22 | PD ---
HPI Chief Complaint: Back/ Neck Pain or Injury Time Seen by Provider: 03:15 Travel History International Travel<30 days: No Contact w/Intl Traveler<30days: No Traveled to known affect area: No History of Present Illness HPI This Is a 56-year-old female with history of chronic neck and lower back pain who presents for evaluation of chronic neck and lower back pain. She reports history of ruptured disks in her neck and lumbar fusion surgery in the past. She currently sees neurosurgeon Dr. Thurman and will soon be getting surgery on her neck. Her pain was making it difficult to sleep tonight which is prompted evaluation. She describes it as a sharp shooting "nerve pain" in her neck and lower back which is constant, worse with movement. Denies any acute injury. She is currently prescribed hydrocodone, Dilaudid, tizanidine for her pain. Denies bowel or bladder incontinence, saddle anesthesia, chest pain or shortness of breath, abdominal pain, recent illness. No other complaints. PFSH Past Medical History Hx Anticoagulant Therapy: Yes (Plavix) Cardiac Catheterization: Yes Cardiovascular Problems: Yes (CABGx4 02/2005 with stent x4 11/2016, HTN) High Cholesterol: Yes Chest Pain: Yes Cirrhosis: Yes Coronary Artery Disease: Yes Diabetes: Yes Patient Takes Glucophage: No Diminished Hearing: No Hypertension: Yes Respiratory: Yes (PE-2011) Migraines: Yes Renal Failure: Yes Thyroid Disease: Yes Menopausal: Yes Past Surgical History Cardiac Surgery: Yes (OPEN HEART) Cholecystectomy: Yes Coronary Artery Bypass Graft: Yes (4 VESSELS-2011) Coronary Stent: Yes (X2-2011) Hysterectomy: Yes Tonsillectomy: Yes (1971) Social History Alcohol Use: No Tobacco Use: No Substance Use: No Allergies-Medications (Allergen,Severity, Reaction): Coded Allergies: butorphanol (Verified Allergy, Severe, Hallucinations, 09/28/17) codeine (Verified Allergy, Severe, Hives, 09/28/17) fentanyl (Verified Allergy, Severe, Confusion, 09/28/17) morphine (Verified Allergy, Severe, Hallucinations, 09/28/17) Reported Meds & Prescriptions Reported Meds & Active Scripts Active Lidocaine Patch 12 HR (Lidocaine) 5 % Patch 1 Patch TOPICAL DAILY PRN Remove patch after 12 hours Medrol Dosepak (Methylprednisolone) 4 Mg Dspk 4 Mg PO DIRECTED Per Pharmacist direction Dilaudid (Hydromorphone HCl) 2 Mg Tab 2 Mg PO Q8H PRN Reported Victoza Inj (Liraglutide Inj) 18 Mg/3 Ml Pen 1.8 Mg SQ DAILY Aspirin 81 Mg Chew 81 Mg CHEW DAILY Plavix (Clopidogrel Bisulfate) 75 Mg Tab 75 Mg PO DAILY Tizanidine (Tizanidine HCl) 4 Mg Cap 4 Mg PO TID Valium (Diazepam) 5 Mg Tab 5 Mg PO BID PRN Ambien (Zolpidem Tartrate) 10 Mg Tab 10 Mg PO HS PRN Lexapro (Escitalopram Oxalate) 20 Mg Tab 20 Mg PO DAILY Protonix (Pantoprazole Sodium) 20 Mg Tab 20 Mg PO DAILY Amlodipine (Amlodipine Besylate) 10 Mg Tab 10 Mg PO DAILY Coreg (Carvedilol) 6.25 Mg Tab 6.25 Mg PO BID Hydrocodone-Acetaminophen 10-325 mg Tab 1 Tab PO Q4H PRN Synthroid (Levothyroxine Sodium) 175 Mcg Tab 175 Mcg PO DAILY Estrace (Estradiol) 2 Mg Tab 2 Mg PO DAILY Januvia (Sitagliptin Phosphate) 25 Mg Tab 25 Mg PO DAILY Review of Systems Except as stated in HPI: all other systems reviewed are Neg Physical Exam Narrative GENERAL: Well-developed well-nourished female in no acute distress SKIN: Warm and dry. HEAD: Atraumatic. Normocephalic. EYES: Pupils equal and round. No scleral icterus. No injection or drainage. ENT: No nasal bleeding or discharge. Mucous membranes pink and moist. NECK: Trachea midline. No JVD. CARDIOVASCULAR: Regular rate and rhythm. No murmur appreciated. RESPIRATORY: No accessory muscle use. Clear to auscultation. Breath sounds equal bilaterally. GASTROINTESTINAL: Abdomen soft, non-tender, nondistended. Hepatic and splenic margins not palpable. MUSCULOSKELETAL: No obvious deformities. No clubbing. No cyanosis. No edema. NEUROLOGICAL: Awake and alert. No obvious cranial nerve deficits. Motor grossly within normal limits. Normal speech. PSYCHIATRIC: Appropriate mood and affect; insight and judgment normal. Data Data Last Documented VS Vital Signs Date Time Temp Pulse Resp B/P (MAP) Pulse Ox O2 Delivery O2 Flow Rate FiO2 09/28/17 02:47 97.9 71 16 123/60 (81) 95 Room Air Orders Orders Ketorolac Inj (Toradol Inj) (09/28/17 03:15) Orphenadrine Inj (Norflex Inj) (09/28/17 03:15) Methylprednisolone So Succ Inj (Solumedr (09/28/17 03:15) Ed Discharge Order (09/28/17 03:15) [facility] Medical Decision Making Medical Screen Exam Complete: Yes Emergency Medical Condition: Yes Medical Record Reviewed: Yes Differential Diagnosis Chronic pain, spinal stenosis, degenerative disc disease, herniated nucleus pulposus Narrative Course I anticipate that controlling this patient's pain would be difficult given that she is already prescribed Dilaudid, hydrocodone and tizanidine at home. The plan will be to discharge the patient with a short course of Medrol Dosepak and Lidoderm patches. She'll be given Toradol, Norflex, Medrol injection here. She will follow-up with her neurosurgeon. Diagnosis Primary Impression: Chronic neck pain Additional Impression: Chronic lower back pain Additional Instructions: Medication as prescribed. Follow-up with Dr. Thurman. Return for any emergent medical conditions. Med/Other Pt SpecificInfo: Prescription(s) given Scripts Lidocaine Patch 12 HR (Lidocaine Patch 12 HR) 5 % Patch 1 PATCH TOPICAL DAILY Y for PAIN, #1 BOX 0 Refills Remove patch after 12 hours Prov: Zoran Moise MD 09/28/17 Methylprednisolone Dosepak (Medrol Dosepak) 4 Mg Dspk 4 MG PO DIRECTED, #1 DSPK 0 Refills Per Pharmacist direction Prov: Zoran Moise MD 09/28/17 Disposition: 01 DISCHARGE HOME Condition: Stable Sadi Lucas Sep 28, 2017 03:22
[2017-10-09] MEDS ORDERED: SIMV40TA PO (13:28)
[2017-10-09] MEDS ORDERED: AMIT150T PO (13:28)
[2017-10-09] MEDS ORDERED: XANA1TAB2 PO (14:46)
== END 2017-09-28 04:09 | disposition home or self-care (01) ==
LOC: NEPD 02:46
DX: M54.2 Cervicalgia (principal); M54.5 Low back pain; G89.29 Other chronic pain; I10 Essential (primary) hypertension; E78.00 Pure hypercholesterolemia, unspecified; I25.10 Atherosclerotic heart disease of native coronary artery without angina pectoris; E11.9 Type 2 diabetes mellitus without complications; Z95.1 Presence of aortocoronary bypass graft; Z88.5 Allergy status to narcotic agent; Z79.82 Long term (current) use of aspirin; Z79.01 Long term (current) use of anticoagulants; Z79.899 Other long term (current) drug therapy
CPT/HCPCS: 96372; 99284; J1885; J2360

== ENCOUNTER → 2017-10-09 | Outpatient (CLI) | payer OTHER ==
[~2017-10-09] MED LIST changes: +AMIT150T PO; +LIDO1PAD52 TOPICAL; +MEDR4PAK PO; +SIMV40TA PO; +XANA1TAB2 PO
== END ==
LOC: CPRE 12:27
PROVIDERS: ATTEND Neurological Surgery
DX: Z01.818 Encounter for other preprocedural examination (principal); M50.10 Cervical disc disorder with radiculopathy, unspecified cervical region; M48.02 Spinal stenosis, cervical region; M50.30 Other cervical disc degeneration, unspecified cervical region

== ENCOUNTER 2017-10-18 23:56 | Emergency (ER) | payer OTHER ==
[~2017-10-18] VITALS: Ht 167.6 cm; Wt 73.6 kg
[~2017-10-18 23:56] MED LIST changes: -LIDO1PAD52 TOPICAL; -MEDR4PAK PO
[2017-10-18 23:57] VITALS: BP 110/55; PULSE 60; RESP 16; TEMP 97.8; O2SAT 97
--- NOTE | 2017-10-19 01:08 | RADRPT ---
EXAM DATE/TIME: 10/19/2017 00:56 [facility] COMPARISON: CHEST SINGLE AP, June 27, 2017, 3:46. INDICATIONS : Shortness of breath. MEDICAL HISTORY : Hypertension. Congestive heart failure. Diabetes mellitus type II. SURGICAL HISTORY : Coronary artery stent. CABG. ENCOUNTER: Initial ACUITY: 1 day PAIN SCORE: 0/10 LOCATION: Bilateral chest FINDINGS: The lungs are clear without infiltrate, nodule, or mass. There is no appreciable pleural effusion fo r technique. Heart and mediastinum are unremarkable. Coronary artery stent is in place. There is sabine dence for prior median sternotomy. CONCLUSION: No acute cardiopulmonary disease. Thony Arita MD on October 19, 2017 at 1:06 Board Certified Radiologist. This report was verified electronically.
--- NOTE | 2017-10-19 01:28 | PD ---
HPI Chief Complaint: Respiratory Symptoms Time Seen by Provider: 00:37 Travel History International Travel<30 days: No Contact w/Intl Traveler<30days: No Traveled to known affect area: No History of Present Illness HPI 56 year-old woman, presents to the emergency department complaining of shortness of breath. She describes being short of breath and weak with dyspnea on exertion ongoing for several days. She states she was just admitted and had a heart catheter in extensive workup before to hospital and the conclusion was that her neck problems working causing her shortness of breath. She apparently missed her surgery appointment with Dr. Thurman and now she is in the ED for this shortness of breath with the same. No cough cold symptoms, no fevers or chills. History Past Medical History Narrative Medical Diabetes Hypertension Hyperlipidemia CABG History of PE Tetanus Vaccination: < 5 Years Menopausal: Yes Social History Alcohol Use: No Tobacco Use: No Allergies-Medications (Allergen,Severity, Reaction): Coded Allergies: butorphanol (Verified Allergy, Severe, Hallucinations, 09/28/17) codeine (Verified Allergy, Severe, Hives, 09/28/17) fentanyl (Verified Allergy, Severe, Confusion, 09/28/17) morphine (Verified Allergy, Severe, Hallucinations, 09/28/17) Reported Meds & Prescriptions Reported Meds & Active Scripts Active Xanax (Alprazolam) 1 Mg Tab 1 Mg PO Q12HR PRN Dilaudid (Hydromorphone HCl) 2 Mg Tab 2 Mg PO Q8H PRN Reported Simvastatin 40 Mg Tab 40 Mg PO HS Amitriptyline (Amitriptyline HCl) 150 Mg Tab 150 Mg PO HS Victoza Inj (Liraglutide Inj) 18 Mg/3 Ml Pen 1.8 Mg SQ DAILY Aspirin 81 Mg Chew 81 Mg CHEW DAILY Plavix (Clopidogrel Bisulfate) 75 Mg Tab 75 Mg PO DAILY Tizanidine (Tizanidine HCl) 4 Mg Cap 4 Mg PO DAILY Valium (Diazepam) 5 Mg Tab 5 Mg PO BID PRN Ambien (Zolpidem Tartrate) 10 Mg Tab 10 Mg PO HS PRN Lexapro (Escitalopram Oxalate) 20 Mg Tab 20 Mg PO DAILY Protonix (Pantoprazole Sodium) 20 Mg Tab 20 Mg PO DAILY Amlodipine (Amlodipine Besylate) 10 Mg Tab 10 Mg PO DAILY Coreg (Carvedilol) 6.25 Mg Tab 6.25 Mg PO BID Hydrocodone-Acetaminophen 10-325 mg Tab 1 Tab PO Q4H PRN Synthroid (Levothyroxine Sodium) 175 Mcg Tab 175 Mcg PO DAILY Estrace (Estradiol) 2 Mg Tab 2 Mg PO DAILY Januvia (Sitagliptin Phosphate) 25 Mg Tab 25 Mg PO DAILY Review of Systems Except as stated in HPI: all other systems reviewed are Neg Physical Exam Narrative GENERAL: Well-appearing 56 year-old woman, no acute distress. SKIN: Focused skin assessment warm/dry. HEAD: Atraumatic. Normocephalic. EYES: Pupils equal and round. No scleral icterus. No injection or drainage. ENT: No nasal bleeding or discharge. Mucous membranes pink and moist. NECK: Trachea midline. No JVD. CARDIOVASCULAR: Regular rate and rhythm. No murmur appreciated. RESPIRATORY: No accessory muscle use. Clear to auscultation. Breath sounds equal bilaterally. GASTROINTESTINAL: Abdomen soft, non-tender, nondistended. Hepatic and splenic margins not palpable. MUSCULOSKELETAL: No obvious deformities. No clubbing. No cyanosis. No edema. NEUROLOGICAL: Awake and alert. No obvious cranial nerve deficits. Motor grossly within normal limits. Normal speech. PSYCHIATRIC: Appropriate mood and affect; insight and judgment normal. Data Data Last Documented VS Vital Signs Date Time Temp Pulse Resp B/P (MAP) Pulse Ox O2 Delivery O2 Flow Rate FiO2 10/19/17 00:18 16 99 Room Air 10/18/17 23:57 97.8 60 110/55 (73) Orders Orders Chest, Single Ap (10/19/17 ) [facility] Medical Decision Making Medical Screen Exam Complete: No Emergency Medical Condition: No Interpretation(s) My review of chest x-ray negative My review of EKG: Normal sinus rhythm at a rate of 60, normal axis, normal pulse , no acute ischemia. Differential Diagnosis Shortness of breath, anxiety, PE, ACS, pneumothorax, medication effect, other Narrative Course Medical decision making 56 year-old woman presents to the ED apparently for medical clearance for her surgery. States she has shortness of breath is been ongoing. Patient had extensive normal workup in the recent past including recent admissions other hospitals of heart catheter's etc. Like us to contact their neurosurgeon. It' s 1 AM and he is not habilitative interventionist. There is no indications for hospitalizations or emergent neurosurgery consults. Recommend outpatient follow-up in the a.m. Diagnosis Primary Impression: Shortness of breath Additional Instructions: Follow-up with your primary doctor for further evaluation of your ongoing respiratory difficulties, and for your neck pain. Return to the emergency department for any new or worsening symptoms. Med/Other Pt SpecificInfo: No Change to Meds Disposition: 01 DISCHARGE HOME Condition: Stable Prem Jean Baptiste MD Oct 19, 2017 01:28
--- NOTE | 2017-10-19 22:45 | EKG ---
Date Performed: 10/19/2017 Time Performed: 00:19:26 PTAGE: 56 years EKG: Sinus rhythm WITH OCCASIONAL VENTRICULAR PREMATURE COMPLEXES POSSIBLE RIGHT VENTRICULAR CONDUCTION DELAY NONSPECI FIC ST & T-WAVE ABNORMALITY BORDERLINE ECG PREVIOUS TRACING : 10/10/2017 17.09 Compared to the previous tracing T wave abnormalities are m ore prominent DOCTOR: Sandeep Schmid Interpretating Date/Time 10/19/2017 22:45:07
[2017-11-02] MEDS ORDERED: DILA2TAB4 PO (08:51)
[2017-11-02] MEDS ORDERED: XANA1TAB2 PO (08:51)
== END 2017-10-19 01:49 | disposition home or self-care (01) ==
LOC: NEPC 23:56
DX: R06.02 Shortness of breath (principal); E78.5 Hyperlipidemia, unspecified; E11.9 Type 2 diabetes mellitus without complications; Z79.4 Long term (current) use of insulin
CPT/HCPCS: 71010; 93005; 99284

== ENCOUNTER → 2017-11-08 | Outpatient (CLI) | payer OTHER | LOC: CPRE 11:39 | PROVIDERS: ATTEND Neurological Surgery | DX: Z01.812 Encounter for preprocedural laboratory examination (principal); Z01.818 Encounter for other preprocedural examination; M50.10 Cervical disc disorder with radiculopathy, unspecified cervical region; M48.062 Spinal stenosis, lumbar region with neurogenic claudication; M50.30 Other cervical disc degeneration, unspecified cervical region | CPT/HCPCS: 87640; 87641 ==

== ENCOUNTER 2017-11-17 06:18 | Inpatient (IN) | payer OTHER, MEDICARE ==
--- NOTE | 2017-11-16 17:31 | MH ---
cc: YONI GARRIDO MD, RAID G. MD VAN DIEPEN, PATRICIA GAIL D.O. DATE OF ADMISSION 11/17/2017 ADMISSION DIAGNOSIS Cervical stenosis. HISTORY OF PRESENT ILLNESS This is a 56-year-old female who presented to us for neck and low back pain. She states her neck pain has gotten worse in the last three years and has been unbearable in the last five months. She states that she is having to take more frequent trips to the emergency room secondary to her pain. She states the pain radiates into the posterior head into the left upper eye and jaw area. She was previously given Botox injections from Dr. Tracy from neurology but states that even this did not mask her pain. Her pain also radiates into the left scapular area and into the left upper extremity, although she is unclear of the distribution. She also has paresthesias in the bilateral upper extremities and hands but not in any particular fingers. She states that she has been dropping a lot of items. She states that she has felt off balance and falling more. She denies any bowel or bladder incontinence. She had physical therapy three years ago which did not help. The patient has a history of coronary artery disease status post stenting in early 2016 and was on Plavix therapy. She had a stress test and also recently a cardiac cath. She has a history of left glossopharyngeal neuralgia and chronic intermittent facial pain radiating to the left orbit from the occiput. PAST MEDICAL HISTORY 1. Coronary artery disease with stenting in 2014. 2. Four-vessel bypass in 2004, 3. Gastroesophageal reflux disease, 4. Cholecystectomy in 2002 5. Thyroid surgery in 1995 MEDICATIONS Current 1. Plavix 75 mg daily. This was placed on hold one week prior to surgical intervention. 2. Aspirin 81 mg. This was placed on hold one week prior to surgical intervention. 3. Tizanidine 4 mg p.o. t.i.d. muscle spasms 4. Valium 5 mg p.o. b.i.d. p.r.n. anxiety 5. Ambien 10 mg p.o. q.h.s. 6. Lexapro 20 mg p.o. daily. 7. Protonix 20 mg p.o. daily. 8. Amlodipine 10 mg p.o. daily. 9. Coreg 6.25 mg p.o. b.i.d. 10. [place] 10/325 p.o. q.4 h p.r.n. pain. 11. Synthroid 175 mcg p.o. daily. 12. Estrace 2 mg p.o. daily. 13. Januvia 25 mg p.o. daily. ALLERGIES STADOL CODEINE FENTANYL MORPHINE - CAUSES HALLUCINATIONS FAMILY HISTORY Her father is at 36 years old. Her mother is at 58 years older. Her sister is alive at 62 years old. SOCIAL HISTORY She is . She has one child. She does not smoke and has not smoked in the past. She does not drink alcohol. REVIEW OF SYSTEMS CONSTITUTIONAL: She denies any fever or chills. EARS, NOSE AND THROAT: No sinus drainage or ringing in her ears CARDIOVASCULAR: Positive for occasional chest pain or palpitations RESPIRATORY: No cough. Positive for shortness of breath. GENITOURINARY: No dysuria or hematuria. MUSCULOSKELETAL: Positive for neck and low back pain. SKIN: No rashes or pruritus. NEUROLOGIC: No difficulty with speech or difficulty ambulating. GASTROINTESTINAL: No diarrhea, constipation. PSYCHIATRIC: Positive for anxiety and depression symptoms. ENDOCRINE: No polyuria. HEMATOLOGIC: No bruising or bleeding tendencies. PHYSICAL EXAMINATION HEAD: Normocephalic, atraumatic. NECK: Supple. No carotid bruits heard on auscultation. LUNGS: Clear to auscultation bilaterally. HEART: Regular rate and rhythm. Normal S1 and S2. ABDOMEN: Soft, nontender. Positive bowel sounds. SKIN: Reveals no cyanosis or edema. MUSCULOSKELETAL: Deltoid and biceps strength is 4/5 triceps and hand intrinsics is 4-/5 bilaterally. She ambulates without any assistive device. NEUROLOGIC: She is awake, alert, oriented. Cranial nerves II-XII are grossly intact. Speech is fluent. Comprehension is good. Sensation is decreased in the right hip and upper thigh. Otherwise intact in the extremities. Reflexes are diminished in the upper and lower extremities. There is no Tail or clonus response. IMAGING STUDIES Data reviewed - MRI of the cervical spine from August 15, 2017 reveals degenerative disk disease and disk herniation along with osteophytes at the C5-C6 and C6-C7 level with spinal cord compression and moderate stenosis. There is loss of cervical lordosis. MRI of the lumbar spine from April 20, 2017 reveals mild L4-L5 central disk protrusion along with multilevel degenerative disk disease with facet arthropathy but no significant spinal stenosis. IMPRESSION A 56-year-old female with a chronic history of neck pain and low back pain. The neck pain also radiates to the left scapula and left upper extremity, but she also relates some numbness in the right forearm. She appears to have a diabetic neuropathy with chronic numbness distally in her fingers. Her other complaints are pain radiating into the neck into the occipital area and the left frontal periorbital area. She also has left-sided facial pain involving the throat and left-sided anterior neck also. She also suffers from chronic low back pain and intermittent right leg symptoms and numbness in the right hip area and has a remote history of lumbar laminectomy. She has C5-C6 and C6-C7 disk osteophyte complex with spinal stenosis and spinal cord compression. There is a lesser degree of degenerative changes in the lumbar spine noted. PLAN We have discussed treatment options with the patient regarding her cervical stenosis which included surgical intervention versus continued conservative treatment measures and the patient is requesting we proceed with surgical intervention. We have discussed with her a C5-C6 and C6-C7 microdiskectomy with fusion. We have discussed the procedure using spine models in the office and all of her questions were answered to her satisfaction. We have discussed the risks involved with surgery which include but not limited to bleeding, infection, muscle weakness, voice hoarseness, difficulty swallowing, heart attack, stroke, blood clots, nonfusion, scar tissue formation among others. The patient understands the procedure as well as the risks involved and she is requesting that we proceed and she was therefore scheduled accordingly. Yoni Garrido MD Dictated by LAZ Adames/ /4:17 PM /5:03 PM
[~2017-11-17] VITALS: Ht 167.6 cm; Wt 75.2 kg
[2017-11-17] MEDS ORDERED: BUPIVACAINE/EPINEPHRINE 0.5% 50 ML VIAL ONE (06:53)
[2017-11-17] MEDS ORDERED: THROMBIN (TOPICAL) 5,000 UNIT VIAL ONE (06:53)
[2017-11-17] MEDS ORDERED: VANCOMYCIN HCL 1000 MG VIAL ONE (06:53)
[2017-11-17] MEDS ORDERED: GELFOAM SIZE 100 ONE (06:54)
[2017-11-17] MEDS ORDERED: POVIDONE IODINE 5% (ANTISEPSIS KIT) 4 APPLICATIONS EACH NARE PRN (07:30)
[2017-11-17] MEDS ORDERED: SODIUM CHLORID 0.9% 500 ML IV PRN (07:30)
[2017-11-17] MEDS ORDERED: SODIUM CHLOR 0.9% 1000 ML INJ 1,000 ML IV SCH (07:30)
[2017-11-17] MEDS ORDERED: LACTATED RINGER'S 1000 ML IV PRN (07:30)
[2017-11-17] MEDS ORDERED: METOPROLOL TARTRATE 25 MG TAB PO PRN (07:30)
[2017-11-17] MEDS ORDERED: CHLORHEXIDINE GLUCONATE 2 % 1 PACK (2 CLOTHS) TOPICAL PRN (07:30)
[2017-11-17] MEDS: VANCOMYCIN 1,000 MG/NS 250 ML IV SCH ×4 (07:38→12:09)
[2017-11-17] MEDS ORDERED: ACETAMINOPHEN 1000 MG/100 ML 100 ML IV ONE (07:45)
[2017-11-17] MEDS ORDERED: PROPOFOL 500 MG/50 ML INJ 100 ML ONE (07:45)
[2017-11-17] MEDS ORDERED: KETAMINE HCL 500 MG/5 ML VIAL ONE (07:57)
[2017-11-17] MEDS ORDERED: HYDROmorphone HCL PF 2 MG/ML VIAL ONE (07:58)
[2017-11-17] MEDS ORDERED: ESMOLOL HCL 100 MG/10 ML VIAL IV ONE (12:00)
[2017-11-17] MEDS ORDERED: DEXAMETHASONE SOD PHOS 4 MG/ML VIAL IV ONE (12:00)
[2017-11-17] MEDS ORDERED: GLYCOPYRROLATE 1 MG/5 ML SYRINGE IV PUSH ONE (12:00)
[2017-11-17] MEDS ORDERED: LACTATED RINGER'S 1000 ML INJ 2,000 ML IV ONE (12:00)
[2017-11-17] MEDS ORDERED: LIDOCAINE HCL 1% PF 5 ML SYRINGE OTHER ONE (12:00)
[2017-11-17] MEDS ORDERED: ROCURONIUM INJ 50 MG/5 ML SYRINGE IV PUSH ONE (12:00)
[2017-11-17] MEDS ORDERED: NEOSTIGMINE 5 MG/5 ML SYRINGE IV PUSH ONE (12:00)
[2017-11-17] MEDS ORDERED: ONDANSETRON HCL 4 MG/2 ML VIAL IV PUSH ONE (12:00)
[2017-11-17] MEDS ORDERED: PROPOFOL 200 MG/20 ML AMP IV ONE (12:00)
[2017-11-17] MEDS ORDERED: DEXAMETHASONE SOD PHOS 4 MG/ML VIAL ONE (12:01)
[2017-11-17] MEDS: NS + KCL 20 MEQ INJ 1,000 ML IV SCH ×2 (12:34→22:49)
[2017-11-17] MEDS ORDERED: ACETAMINOPHEN 325 MG TAB PO PRN (12:45)
[2017-11-17] MEDS ORDERED: ALUMINUM/MAGNESIUM/SIMETH 30 ML CUP PO PRN (12:45)
[2017-11-17] MEDS ORDERED: BISACODYL 10 MG SUPP RECTAL PRN (12:45)
[2017-11-17] MEDS ORDERED: SENNOSIDES 8.6 MG TAB PO PRN (12:45)
[2017-11-17] MEDS ORDERED: cloNIDine HCL 0.1 MG TAB PO PRN (12:45)
[2017-11-17] MEDS ORDERED: RESP: ALBUTEROL 2.5 MG/3 ML NEB (PRN) NEB (12:45)
[2017-11-17] MEDS ORDERED: GLUCAGON 1 MG/ML VIAL OTHER PRN (12:45)
[2017-11-17] MEDS ORDERED: DEXTROSE 50% IN WATER 50 ML VIAL(D50) IV PUSH PRN (12:45)
[2017-11-17] MEDS ORDERED: ONDANSETRON HCL 4 MG/2 ML VIAL IV PUSH PRN (12:45)
[2017-11-17] MEDS ORDERED: LACTULOSE SYRUP 20 GM/30 ML CUP PO PRN (12:45)
[2017-11-17] MEDS ORDERED: MAGNESIUM HYDROXIDE SUSP 30 ML CUP PO PRN (12:45)
[2017-11-17] MEDS ORDERED: ZOLPIDEM TARTRATE 10 MG TAB PO PRN (12:45)
[2017-11-17] MEDS ORDERED: PROMETHAZINE INJ 25 MG/ML VIAL IM PRN (12:45)
--- NOTE | 2017-11-17 12:45 | RADRPT ---
EXAM DATE/TIME: 11/17/2017 09:04 [facility] COMPARISON: No previous studies available for comparison. INDICATIONS : Post-op C5-C6 and C6-C7 anterior cervical fusion. MEDICAL HISTORY : None. SURGICAL HISTORY : None. ENCOUNTER: Initial ACUITY: 1 day PAIN SCORE: Non-responsive. LOCATION: neck FINDINGS: Status post anterior cervical fusion C5-C7. Alignment is anatomic. CONCLUSION: Anatomic alignment. Sidney Acosta MD FACR on November 17, 2017 at 12:42 Board Certified Radiologist. This report was verified electronically.
--- NOTE | 2017-11-17 12:46 | PD.OP ---
MD Herbert Rashidil Wilder Christian, DO Operative Report Date of Surgery: Nov 17, 2017 Preoperative Diagnosis: Intractable neck pain with associated radiculopathy and headaches; C5-6 and C6- 7 degenerative disc disease with disc osteophyte complex and associated spinal and foraminal stenosis Postoperative Diagnosis: Same Procedure: Gen. endotracheal by Jah mar Anesthesia: Anterior cervical C5-6 and C6-7 microdiscectomy with interbody fusion; anterior C5-C7 cervical plate placement; C5-6 and C6-7 interbody cage placement; microsurgical technique Surgeon: Wilbur Thurman M.D. Street Sprinkler(s): Ilsa John Operation and Findings: Following administration of general endotracheal anesthesia, the patient received a gram of vancomycin and Decadron 10 mg intravenously. Sequential compression devices were placed in supine position on a Michele table and all pressure points adequately padded. The head secured in a donut and anterior cervical region then shaved and prepped with Chloraprep and sterilely draped with Ioban along with the usual sterile draping. A transverse skin incision on the left side of the neck was then made after infiltrating the skin with 0.5% Marcaine with epinephrine solution extending down through the platysma. At the anterior border of the sternocleidomastoid further dissection was undertaken developing a plane between the carotid sheath laterally and the trachea esophagus medially. The prevertebral fascia was exposed and dissected out. The medial attachments of the longus colli muscles were detached and a self- retaining retractor used for exposure. The C5-6 disc space was localized with a marking the disc space and using lateral fluoroscopy. [place] distraction screws 14 mm length were placed one in the C5 and one in the C7 body interbody distraction and exposure. There was significant disc degeneration with disc height collapse and anterior osteophytes noted at both levels and the osteophytes were resected with a Leksell and annulus incised with a 15 blade and further dissection undertaken using microtechnique with microscope magnification. Diskectomy was undertaken with pituitaries and the endplates were also decorticated with curettes and drill bit. And more posteriorly there was disk osteophyte complex compressing the thecal sac along with a significant uncovertebral joint hypertrophy with foraminal stenosis which was decompressed along with removal of the posterior longitudinal ligaments at both levels. The foramen was decompressed bilaterally using a Kerrison's and palpation with a nerve hook, the exiting nerve roots were felt to be free. The area was then copiously irrigated. I then placed a Peek cage packed with local autograft bone at the C5-6 and C6-7 interspaces under fluoroscopy guidance. [place] distraction pins were removed and the holes plugged with Gelfoam for hemostasis. In order to facilitate the fusion and provide stabilization, a Precision spine cervical plate was then placed with two 14 mm variable angle screws in the C5 body, one in the C6 body and two 14 mm fixed angle screws in the C7 body. The plate screw locking mechanism was then engaged. AP and lateral fluoroscopy confirmed good placement of the construct and the retractor was then removed. Muscular bleeding points were cauterized with bipolar cautery and Gelfoam was then also used for hemostasis which was removed. The platysma was then approximated using 3-0 Vicryl interrupted stitches and 3-0 Vicryl subcuticular stitch also placed in an interrupted fashion, and final skin closure was with Mastisol and Steri-Strips. Sterile dressing was then applied. The neck immobilized in a Sutton collar. The patient was then extubated and taken to the recovery room. There are no intraoperative complications and all sponge and needle counts were correct at the end of procedure. Estimated blood loss was about 55 cc. The patient did undergo intraoperative neurologic monitoring which remained stable throughout the surgery. Wilbur Thurman MD Nov 17, 2017 12:46
--- NOTE | 2017-11-17 12:51 | RADRPT ---
EXAM DATE/TIME: 11/17/2017 09:04 [facility] COMPARISON: No previous studies available for comparison. INDICATIONS : C5-C6 and C6-C7 anterior cervical fusion. Level localization. MEDICAL HISTORY : None. SURGICAL HISTORY : None. ENCOUNTER: Initial ACUITY: 1 day PAIN SCORE: Non-responsive. LOCATION: neck FINDINGS: Probe at C6-C7. CONCLUSION: Probe at C6-C7. Sidney Acosta MD FACR on November 17, 2017 at 12:43 Board Certified Radiologist. This report was verified electronically.
[2017-11-17] MEDS: DEXAMETHASONE SOD PHOS 4 MG/ML VIAL IV PUSH SCH ×2 (13:00→19:13)
[2017-11-17] MEDS ORDERED: DO NOT ADM ANY ANTICOAGULANT DRUGS PRN (13:02)
[2017-11-17] MEDS ORDERED: *LABETALOL HCL 100 MG/20 ML VIAL PERIprocedural Use ONLY ONE (13:19)
[2017-11-17] MEDS: HYDROmorphone HCL 4 MG TAB PO PRN ×3 (15:22→23:44)
[2017-11-17 16:00] VITALS: BP 176/76; PULSE 73; RESP 16; TEMP 96.4; O2SAT 93
[2017-11-17] MEDS ORDERED: MIDAZOLAM HCL 2 MG/2 ML VIAL ONE (16:32)
[2017-11-17] MEDS: HYDROmorphone HCL PF 2 MG/ML VIAL IV PUSH PRN ×2 (16:49→20:34)
[2017-11-17] MEDS: INSULIN NovoLIN REGULAR SUPPLEMENTAL SCALE SQ SCH ×2 (16:59→22:49)
[2017-11-17 20:00] VITALS: BP 162/74; PULSE 70; RESP 17; TEMP 97.8; O2SAT 95
[2017-11-17] MEDS: PRAVASTATIN SOD 80 MG TAB PO SCH (20:34)
[2017-11-17] MEDS: CARVEDILOL 6.25 MG TAB PO SCH (20:34)
[2017-11-17] MEDS: PANTOPRAZOLE SOD 20 MG DELAYED RELEASE TAB PO SCH (20:34)
[2017-11-17] MEDS: DOCUSATE SODIUM 50 MG/SENNA 8.6 MG TAB PO SCH (20:34)
[2017-11-17] MEDS: SODIUM CHLORIDE 0.9% FLUSH 10 ML FLUSH IV FLUSH SCH (20:35)
[2017-11-17] MEDS: AMITRIPTYLINE HCL 75 MG TAB PO SCH (22:25)
[2017-11-17] MEDS: ALPRAZolam 1 MG TAB PO PRN (22:25)
[2017-11-18] VITALS: BP 164/75; PULSE 73; RESP 18; TEMP 97.9; O2SAT 93
[2017-11-18] MEDS: MENTHOL LOZENGE BUCCAL PRN (00:01)
[2017-11-18] MEDS: DEXAMETHASONE SOD PHOS 4 MG/ML VIAL IV PUSH SCH (01:20)
[2017-11-18] MEDS: HYDROmorphone HCL PF 2 MG/ML VIAL IV PUSH PRN ×5 (04:23→20:37)
[2017-11-18] MEDS: LEVOTHYROXINE SODIUM 100 MCG TAB PO SCH (06:33)
[2017-11-18] MEDS: HYDROmorphone HCL 4 MG TAB PO PRN ×4 (06:33→21:37)
[2017-11-18] MEDS: LEVOTHYROXINE SODIUM 75 MCG TAB PO SCH (06:33)
[2017-11-18 08:00] VITALS: BP 160/74; PULSE 78; RESP 17; TEMP 98.1; O2SAT 96
[2017-11-18] MEDS: SODIUM CHLORIDE 0.9% FLUSH 10 ML FLUSH IV FLUSH SCH ×2 (08:27→20:37)
[2017-11-18] MEDS: ASPIRIN 81 MG CHEW TAB CHEW SCH (08:27)
[2017-11-18] MEDS: DOCUSATE SODIUM 50 MG/SENNA 8.6 MG TAB PO SCH ×2 (08:28→20:36)
[2017-11-18] MEDS: ACETAMINOPHEN/HYDROcodone 325 MG/10 MG TAB PO PRN ×2 (08:28→13:17)
[2017-11-18] MEDS: ESCITALOPRAM OXALATE 20 MG TAB PO SCH (08:28)
[2017-11-18] MEDS: CARVEDILOL 6.25 MG TAB PO SCH ×2 (08:28→20:44)
[2017-11-18] MEDS: ESTRADIOL 1 MG TAB PO SCH (08:28)
[2017-11-18] MEDS: INSULIN NovoLIN REGULAR SUPPLEMENTAL SCALE SQ SCH ×4 (08:47→20:36)
--- NOTE | 2017-11-18 10:26 | HHI.NSPN ---
History Chief Complaint: Neck pain. Interval History 11/18/17: Pt awake and alert. Complains she had a bad night of pain last night despite Dilaudid 4mg po q 4 hours, Dilaudid 2mg IV q 4 hours and [place] 10 q 4hours. She is also taking xanax 1mg bid and Ambien qhs. She states the IV Dilaudid works the best. She complains of incisional pain and sharp pain in the neck. She states she can't be discharged today secondary to her pain level and she is using Dilaudid IV. No radiculopathy in UEs or paresthesias. Review of Systems General: Negative for: fever, chills, insomnia Respiratory: Positive for: shortness of breath (States she gets anxiety from the pain and intermittent periods of sob.), Negative for: cough, sputum Cardiovascular: Negative for: chest pain, palpitations, orthopnea Gastrointestinal: Negative for: nausea, vomitting, diarrhea, constipation Exam Results Vital Signs Date Time Temp Pulse Resp B/P (MAP) Pulse Ox O2 Delivery O2 Flow Rate FiO2 11/18/17 08:00 98.1 78 17 160/74 (102) 96 11/17/17 19:00 Nasal Cannula 3.00 Intake and Output 11/18/17 11/18/17 11/19/17 08:00 16:00 00:00 Intake Total 1820 ml Balance 1820 ml Physical Examination General: When I entered the room pt was sleeping comfortably. Resp: CTA bilaterally Heart: NSR no murmurs Abd: Soft positive bs Skin: Incision clean and dry no signs of infection. new bandage placed by me. Muscle: Moves all 4 extremities with good strength. Neuro: Pt awakens to voice. Follows commands well. Speech clear and appropriate. Sensation intact. Lab, Micro, Other Results Last Impressions Cervical Spine X-Ray 11/17/17 0000 Signed Impressions: Service Date/Time: Friday, November 17, 2017 09:04 - CONCLUSION: Probe at C6- C7. Sidney Acosta MD FACR 11/18/17 11/18/17 11/19/17 15:00 23:00 07:00 Intake Total 750 ml Balance 750 ml IV Total 750 ml Medical Decision Making Impression and Plan A: 56 y/o FM s/p C5/C6 and C6/C7 ACF with interbody cage and plate placement. P: Continue with pain control. Pt is requesting the Dilaudid IV more frequently and I advised her we should be using that less today and possibly stopping it. Ambulate with assistance. Continue with cervical collar. Possible discharge tomorrow if pts pain better controlled encouraged her to use less of IV Dilaudid. Hawk Vides Nov 18, 2017 10:26
[2017-11-18] MEDS: DIAZEPAM 5 MG TAB PO PRN (10:51)
[2017-11-18] MEDS: ALPRAZolam 1 MG TAB PO PRN (11:35)
[2017-11-18] MEDS: SODIUM CHLORIDE 0.9% FLUSH 10 ML FLUSH IV FLUSH PRN ×2 (11:36→15:55)
[2017-11-18 12:00] VITALS: BP 138/61; PULSE 72; RESP 18; TEMP 98.3; O2SAT 94
[2017-11-18 16:01] VITALS: BP 105/68; PULSE 63; RESP 16; TEMP 98; O2SAT 93
[2017-11-18] MEDS: PRAVASTATIN SOD 80 MG TAB PO SCH (20:35)
[2017-11-18] MEDS: PANTOPRAZOLE SOD 20 MG DELAYED RELEASE TAB PO SCH (20:36)
[2017-11-18 20:45] VITALS: BP 120/56; PULSE 65; RESP 17; TEMP 97.6; O2SAT 95
[2017-11-18] MEDS: AMITRIPTYLINE HCL 75 MG TAB PO SCH (20:47)
[2017-11-18 23:40] VITALS: BP 100/52; PULSE 64; RESP 17; TEMP 98; O2SAT 92
[2017-11-19] MEDS: HYDROmorphone HCL PF 2 MG/ML VIAL IV PUSH PRN ×3 (03:46→21:08)
[2017-11-19] MEDS: SODIUM CHLORIDE 0.9% FLUSH 10 ML FLUSH IV FLUSH PRN ×3 (03:47→13:39)
[2017-11-19] MEDS: DIAZEPAM 5 MG TAB PO PRN (04:05)
[2017-11-19] MEDS: LEVOTHYROXINE SODIUM 75 MCG TAB PO SCH (06:16)
[2017-11-19] MEDS: LEVOTHYROXINE SODIUM 100 MCG TAB PO SCH (06:16)
[2017-11-19 08:00] VITALS: BP 101/49; PULSE 67; RESP 16; TEMP 97.5; O2SAT 92
[2017-11-19] MEDS: INSULIN NovoLIN REGULAR SUPPLEMENTAL SCALE SQ SCH ×4 (08:00→21:19)
[2017-11-19] MEDS: DOCUSATE SODIUM 50 MG/SENNA 8.6 MG TAB PO SCH ×2 (09:00→21:06)
[2017-11-19] MEDS: ASPIRIN 81 MG CHEW TAB CHEW SCH (09:12)
[2017-11-19] MEDS: ESCITALOPRAM OXALATE 20 MG TAB PO SCH (09:12)
[2017-11-19] MEDS: ESTRADIOL 1 MG TAB PO SCH (09:12)
[2017-11-19] MEDS: CARVEDILOL 6.25 MG TAB PO SCH ×2 (09:12→21:08)
[2017-11-19] MEDS: HYDROmorphone HCL 4 MG TAB PO PRN ×3 (09:13→17:48)
[2017-11-19] MEDS: SODIUM CHLORIDE 0.9% FLUSH 10 ML FLUSH IV FLUSH SCH ×2 (09:13→21:08)
[2017-11-19] MEDS: ALPRAZolam 1 MG TAB PO PRN (09:19)
[2017-11-19] MEDS: MENTHOL LOZENGE BUCCAL PRN (09:19)
--- NOTE | 2017-11-19 10:01 | HHI.NSPN ---
History Chief Complaint: Neck pain. Interval History 11/18/17: Pt awake and alert. Complains she had a bad night of pain last night despite Dilaudid 4mg po q 4 hours, Dilaudid 2mg IV q 4 hours and [place] 10 q 4hours. She is also taking xanax 1mg bid and Ambien qhs. She states the IV Dilaudid works the best. She complains of incisional pain and sharp pain in the neck. She states she can't be discharged today secondary to her pain level and she is using Dilaudid IV. No radiculopathy in UEs or paresthesias. 11/19/17: Patient awake and alert. She states that she is in a lot of pain today and was doing much better yesterday, otherwise are yesterday she said that she was doing worse than the night before. She denies any radicular pain in the upper extremities complains of anterior and posterior neck pain. She continues asked for IV Dilaudid. Review of Systems General: Negative for: fever, chills, insomnia Respiratory: Negative for: shortness of breath, cough, sputum Cardiovascular: Negative for: chest pain Gastrointestinal: Negative for: nausea, vomitting, diarrhea, constipation Exam Results Vital Signs Date Time Temp Pulse Resp B/P (MAP) Pulse Ox O2 Delivery O2 Flow Rate FiO2 11/19/17 08:00 97.5 67 16 101/49 (66) 92 11/18/17 21:43 Room Air 11/17/17 19:00 3.00 Intake and Output 11/19/17 11/19/17 11/19/17 07:59 15:59 23:59 Intake Total 240 ml Balance 240 ml Physical Examination General: When I entered the room pt was looking through her purse appearing in no acute distress. Resp: CTA bilaterally Heart: NSR no murmurs Abd: Soft positive bs Skin: Incision clean and dry no signs of infection. Muscle: Moves all 4 extremities with very poor effort, she states secondary to pain. Cervical collar in place. Neuro: Pt awakens to voice. Follows commands well. Speech clear and appropriate. Sensation intact. Lab, Micro, Other Results Last Impressions Cervical Spine X-Ray 11/17/17 0000 Signed Impressions: Service Date/Time: Friday, November 17, 2017 09:04 - CONCLUSION: Probe at C6- C7. Sidney Acosta MD FACR Medical Decision Making Impression and Plan A: 56 y/o FM s/p C5/C6 and C6/C7 ACF with interbody cage and plate placement. P: Continue with pain control. Pt is requesting the Dilaudid IV, she was not able to wean on her own yesterday and therefore we have decreased the frequency today. Ambulate with assistance. Continue with cervical collar. Discharge tomorrow. Hawk Vides Nov 19, 2017 10:01 am
[2017-11-19 12:00] VITALS: BP 119/58; PULSE 74; RESP 18; TEMP 98.4; O2SAT 92
[2017-11-19] MEDS: ACETAMINOPHEN/HYDROcodone 325 MG/10 MG TAB PO PRN ×2 (12:22→18:21)
[2017-11-19 16:05] VITALS: BP 104/51; PULSE 70; RESP 15; TEMP 98.8; O2SAT 92
[2017-11-19 20:10] VITALS: BP 127/58; PULSE 78; RESP 17; TEMP 98.5; O2SAT 96
[2017-11-19] MEDS: PRAVASTATIN SOD 80 MG TAB PO SCH (21:07)
[2017-11-19] MEDS: AMITRIPTYLINE HCL 75 MG TAB PO SCH (21:07)
[2017-11-19] MEDS: PANTOPRAZOLE SOD 20 MG DELAYED RELEASE TAB PO SCH (21:07)
[2017-11-20 00:15] VITALS: BP 137/65; PULSE 79; RESP 18; TEMP 99; O2SAT 95
[2017-11-20] MEDS: ALPRAZolam 1 MG TAB PO PRN (02:15)
[2017-11-20] MEDS: ACETAMINOPHEN/HYDROcodone 325 MG/10 MG TAB PO PRN ×2 (02:15→12:09)
[2017-11-20] MEDS: HYDROmorphone HCL 4 MG TAB PO PRN (03:55)
[2017-11-20 04:10] VITALS: BP 107/53; PULSE 75; RESP 17; TEMP 99.9; O2SAT 95
[2017-11-20] MEDS: LEVOTHYROXINE SODIUM 100 MCG TAB PO SCH (05:54)
[2017-11-20] MEDS: LEVOTHYROXINE SODIUM 75 MCG TAB PO SCH (05:54)
[2017-11-20] MEDS: ESTRADIOL 1 MG TAB PO SCH (07:47)
[2017-11-20] MEDS: DOCUSATE SODIUM 50 MG/SENNA 8.6 MG TAB PO SCH (07:47)
[2017-11-20] MEDS: ESCITALOPRAM OXALATE 20 MG TAB PO SCH (07:47)
[2017-11-20] MEDS: CARVEDILOL 6.25 MG TAB PO SCH (07:48)
[2017-11-20] MEDS: ASPIRIN 81 MG CHEW TAB CHEW SCH (07:48)
[2017-11-20 07:51] VITALS: BP 108/55; PULSE 64; RESP 18; TEMP 98.8; O2SAT 96
[2017-11-20] MEDS: INSULIN NovoLIN REGULAR SUPPLEMENTAL SCALE SQ SCH (08:00)
--- NOTE | 2017-11-20 10:03 | HHI.NSPN ---
History Chief Complaint: Neck pain. Interval History 11/18/17: Pt awake and alert. Complains she had a bad night of pain last night despite Dilaudid 4mg po q 4 hours, Dilaudid 2mg IV q 4 hours and [place] 10 q 4hours. She is also taking xanax 1mg bid and Ambien qhs. She states the IV Dilaudid works the best. She complains of incisional pain and sharp pain in the neck. She states she can't be discharged today secondary to her pain level and she is using Dilaudid IV. No radiculopathy in UEs or paresthesias. 11/19/17: Patient awake and alert. She states that she is in a lot of pain today and was doing much better yesterday, otherwise are yesterday she said that she was doing worse than the night before. She denies any radicular pain in the upper extremities complains of anterior and posterior neck pain. She continues asked for IV Dilaudid. 11/20/17: Patient is sedated this morning. When I woke her up she still complains of severe pain though she is very drowsy. She follows simple commands. Review of Systems General: Negative for: fever, chills, insomnia Respiratory: Negative for: shortness of breath, cough, sputum Cardiovascular: Negative for: chest pain Gastrointestinal: Negative for: nausea, vomitting, diarrhea, constipation Exam Results Vital Signs Date Time Temp Pulse Resp B/P (MAP) Pulse Ox O2 Delivery O2 Flow Rate FiO2 11/20/17 08:40 Room Air 2.00 21 11/20/17 07:51 98.8 64 18 108/55 (72) 96 Intake and Output 11/20/17 11/20/17 11/21/17 08:00 16:00 00:00 Intake Total 960 ml Balance 960 ml Physical Examination General: Patient is currently sedated. She is arousable and complains of severe pain when she is woke up from sleep. Resp: CTA bilaterally Heart: NSR no murmurs Abd: Soft positive bs Skin: Incision clean and dry no signs of infection. Muscle: Moves all 4 extremities, currently sedated for muscle testing. Cervical collar in place. Neuro: Pt awakens to voice but sedated. Follows commands. Lab, Micro, Other Results Last Impressions Cervical Spine X-Ray 11/17/17 0000 Signed Impressions: Service Date/Time: Friday, November 17, 2017 09:04 - CONCLUSION: Probe at C6- C7. Sidney Acosta MD FACR Medical Decision Making Impression and Plan A: 56 y/o FM s/p C5/C6 and C6/C7 ACF with interbody cage and plate placement. P: Discharge pt today when more awake Discussed plan with RN Addendum: Reevaluated pt at 12:30pm and is much more alert. Pts at bedside will dispense her medication at home. She can be discharged. Hawk Vides Nov 20, 2017 10:03 am
[2017-11-20] MEDS: DIAZEPAM 5 MG TAB PO PRN (12:09)
== END 2017-11-20 13:17 | disposition home or self-care (01) | DRG 472 ==
LOC: HSDC 06:18 → N06B 12:40 → OBSVTOIN 11-18 10:27
PROVIDERS: ADMIT Neurological Surgery; ATTEND Neurological Surgery
PROC: 0RB30ZZ Excision of Cervical Vertebral Disc, Open Approach (ICD-10-PCS; 2017-11-17)
PROC: 0RG20A0 Fusion of 2 or more Cervical Vertebral Joints with Interbody Fusion Device, Anterior Approach, Anterior Column, Open Approach (ICD-10-PCS; principal; 2017-11-17 08:36)
DX: M50.122 Cervical disc disorder at C5-C6 level with radiculopathy (principal); G95.20 Unspecified cord compression; E11.40 Type 2 diabetes mellitus with diabetic neuropathy, unspecified; M50.123 Cervical disc disorder at C6-C7 level with radiculopathy; M48.02 Spinal stenosis, cervical region; M47.816 Spondylosis without myelopathy or radiculopathy, lumbar region; M25.78 Osteophyte, vertebrae; G89.29 Other chronic pain; G52.1 Disorders of glossopharyngeal nerve; I25.10 Atherosclerotic heart disease of native coronary artery without angina pectoris; R51 Headache; K21.9 Gastro-esophageal reflux disease without esophagitis; Z95.5 Presence of coronary angioplasty implant and graft; Z90.49 Acquired absence of other specified parts of digestive tract; Z95.1 Presence of aortocoronary bypass graft; Z79.84 Long term (current) use of oral hypoglycemic drugs; Z79.02 Long term (current) use of antithrombotics/antiplatelets; Z79.82 Long term (current) use of aspirin
CPT/HCPCS: 72020; 72040; 76000; 82948; 94150; C1713; J0131; J0690; J1100; J1170; J2250; J2405; J2710; J3370; J3480; J7050; J7120; L0150; L0172

== ENCOUNTER 2017-11-24 00:52 | Inpatient (IN) | payer OTHER, MEDICARE ==
[~2017-11-24] VITALS: Ht 167.6 cm; Wt 81.2 kg
[2017-11-24] VITALS (7 sets, daily range): BP systolic 111–177; BP diastolic 56–72; PULSE 60–86; RESP 13–16; TEMP 98.2–98.5; O2SAT 93–100
[2017-11-24] MEDS ORDERED: GADODIAMIDE PF 287 MG/ML 5 ML VIAL (for RAD MRI) IVCONTRAST ONE (00:53)
--- NOTE | 2017-11-24 01:47 | PD ---
HPI Chief Complaint: Back/ Neck Pain or Injury Time Seen by Provider: 01:32 Travel History International Travel<30 days: No Contact w/Intl Traveler<30days: No Traveled to known affect area: No History of Present Illness HPI Patient is a 56-year-old female postoperative day 3 from a cervical spine fusion and discectomy presents the emergency department for evaluation of throat tightness and swelling as well as some associated shortness of breath. Denies any chest pain or abdominal pain nausea or vomiting, she states she has been taking Dilaudid pills at home as well as her Zanaflex with minimal relief. Fairly somnolent even lethargic on arrival when aroused she states the pain is still there. Multiple workups for shortness of breath in the past. Denies any focalized weakness numbness and tingling in her extremities. 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) Genitourinary: No Hepatitis: No Hiatal Hernia: No Hypertension: Yes Immune Disorder: No Neurologic: Yes (PAIN AND NUMBNESS, RUPTURED AND BULGING DISCS) Psychiatric: No Reproductive: No Respiratory: Yes (PE-2011) Migraines: Yes Renal Failure: Yes Thyroid Disease: Yes ?: Not Menopausal: Yes Past Surgical History Abdominal Surgery: Yes (GALLBLADDER) AICD: No Body Medical Devices: [address] Cardiac Surgery: Yes (OPEN HEART) Cholecystectomy: Yes Coronary Artery Bypass Graft: Yes (4 VESSELS-2011) Coronary Stent: Yes (X2-2011) Endocrine Surgery: Yes (THRYROID) Gynecologic Surgery: Yes (HYSTERECTOMY) Hysterectomy: Yes Joint Replacement: No Pacemaker: No Tonsillectomy: Yes (1971) Other Surgery: Yes Social History Alcohol Use: No Tobacco Use: No Substance Use: No Allergies-Medications (Allergen,Severity, Reaction): Coded Allergies: butorphanol (Verified Allergy, Severe, Hallucinations, 11/08/17) codeine (Verified Allergy, Severe, Hives, 11/08/17) fentanyl (Verified Allergy, Severe, Confusion, 11/08/17) morphine (Verified Allergy, Severe, Hallucinations, 11/08/17) Reported Meds & Prescriptions Reported Meds & Active Scripts Active Xanax (Alprazolam) 1 Mg Tab 1 Mg PO Q12HR PRN Dilaudid (Hydromorphone HCl) 2 Mg Tab 2 Mg PO Q8H PRN Reported Simvastatin 40 Mg Tab 40 Mg PO HS Amitriptyline (Amitriptyline HCl) 150 Mg Tab 150 Mg PO HS Victoza Inj (Liraglutide Inj) 18 Mg/3 Ml Pen 1.8 Mg SQ HS Aspirin 81 Mg Chew 81 Mg CHEW DAILY Plavix (Clopidogrel Bisulfate) 75 Mg Tab 75 Mg PO DAILY Tizanidine (Tizanidine HCl) 4 Mg Cap 4 Mg PO DAILY Valium (Diazepam) 5 Mg Tab 5 Mg PO BID PRN Ambien (Zolpidem Tartrate) 10 Mg Tab 10 Mg PO HS PRN Lexapro (Escitalopram Oxalate) 20 Mg Tab 20 Mg PO DAILY Protonix (Pantoprazole Sodium) 20 Mg Tab 20 Mg PO HS Amlodipine (Amlodipine Besylate) 10 Mg Tab 10 Mg PO DAILY Coreg (Carvedilol) 6.25 Mg Tab 6.25 Mg PO BID Hydrocodone-Acetaminophen 10-325 mg Tab 1 Tab PO Q4H PRN Synthroid (Levothyroxine Sodium) 175 Mcg Tab 175 Mcg PO DAILY Estrace (Estradiol) 2 Mg Tab 2 Mg PO DAILY Januvia (Sitagliptin Phosphate) 25 Mg Tab 25 Mg PO DAILY Review of Systems Except as stated in HPI: all other systems reviewed are Neg Physical Exam Narrative GENERAL: Well-developed well-nourished, somnolent bordering on lethargic. SKIN: Focused skin assessment warm/dry. HEAD: Atraumatic. Normocephalic. EYES: Pupils equal and round. No scleral icterus. No injection or drainage. ENT: No nasal bleeding or discharge. Mucous membranes pink and moist. NECK: Trachea midline. No JVD. CARDIOVASCULAR: Regular rate and rhythm. No murmur appreciated. RESPIRATORY: No accessory muscle use. Clear to auscultation. Breath sounds equal bilaterally. GASTROINTESTINAL: Abdomen soft, non-tender, nondistended. Hepatic and splenic margins not palpable. MUSCULOSKELETAL: No obvious deformities. No clubbing. No cyanosis. No edema. Anterior midline neck wound clean dry and intact. NEUROLOGICAL: Awake and alert but somnolent, GCS of 14, cranial nerves II through XII are grossly intact and nonfocal, 5 out of 5 strength in all 4 extremities, PSYCHIATRIC: Appropriate mood and affect; insight and judgment normal. Data Data Last Documented VS Vital Signs Date Time Temp Pulse Resp B/P (MAP) Pulse Ox O2 Delivery O2 Flow Rate FiO2 11/24/17 04:34 60 16 114/57 (76) 93 Room Air 11/24/17 00:54 98.5 Orders Orders Mri C Spine W&W/O Contrast (11/24/17 ) Gadodiamide Pf Inj (Omniscan Pf Inj) (11/24/17 00:53) Complete Blood Count With Diff (11/24/17 04:22) Comprehensive Metabolic Panel (11/24/17 04:22) Lactic Acid (11/24/17 04:22) Iv Access Insert/Monitor (11/24/17 04:22) Ecg Monitoring (11/24/17 04:22) Oximetry (11/24/17 04:22) Sodium Chloride 0.9% Flush (Ns Flush) (11/24/17 04:30) [place] Sedimentation Rate (11/24/17 04:22) C-Reactive Protein (Crp) (11/24/17 04:22) Dexamethasone Inj (Decadron Inj) (11/24/17 05:45) Consult Neurosurgery (11/24/17 ) Diet Npo (11/24/17 Breakfast) (Hub Use Only)Inp Phy Cons/Ref (11/24/17 ) NPO (11/24/17 07:08) Sodium Chlor 0.9% 1000 Ml Inj (Ns 1000 M (11/24/17 07:15) Labs Laboratory Tests Test 11/24/17 04:30 White Blood Count 7.8 TH/MM3 Red Blood Count 4.05 MIL/MM3 Hemoglobin 11.1 GM/DL Hematocrit 33.3 % Mean Corpuscular Volume 82.0 FL Mean Corpuscular Hemoglobin 27.3 PG Mean Corpuscular Hemoglobin Concent 33.2 % Red Cell Distribution Width 14.7 % Platelet Count 192 TH/MM3 Mean Platelet Volume 8.1 FL Neutrophils (%) (Auto) 54.6 % Lymphocytes (%) (Auto) 34.4 % Monocytes (%) (Auto) 8.2 % Eosinophils (%) (Auto) 2.2 % Basophils (%) (Auto) 0.6 % Neutrophils # (Auto) 4.3 TH/MM3 Lymphocytes # (Auto) 2.7 TH/MM3 Monocytes # (Auto) 0.6 TH/MM3 Eosinophils # (Auto) 0.2 TH/MM3 Basophils # (Auto) 0.0 TH/MM3 CBC Comment DIFF FINAL Differential Comment Erythrocyte Sedimentation Rate 59 mm/hr Blood Urea Nitrogen 8 MG/DL Creatinine 1.17 MG/DL Random Glucose 123 MG/DL Total Protein 6.8 GM/DL Albumin 2.8 GM/DL Calcium Level 7.8 MG/DL Alkaline Phosphatase 122 U/L Aspartate Amino Transf (AST/SGOT) 17 U/L Alanine Aminotransferase (ALT/SGPT) 15 U/L Total Bilirubin 0.4 MG/DL Sodium Level 134 MEQ/L Potassium Level 3.6 MEQ/L Chloride Level 102 MEQ/L Carbon Dioxide Level 26.3 MEQ/L Anion Gap 6 MEQ/L Estimat Glomerular Filtration Rate 48 ML/MIN Lactic Acid Level 1.1 mmol/L C-Reactive Protein 5.60 MG/DL MDM Medical Decision Making Medical Screen Exam Complete: Yes Emergency Medical Condition: Yes Differential Diagnosis Epidural abscess, epidural hematoma, pharyngeal swelling, anxiety. Narrative Course Patient room to the emergency department, somnolent bordering and lethargic on arrival her mental status slowly improved, sleeping on multiple reassessments I do not feel comfortable giving her more sedation even though she requested for her MRI. MRI ordered and reveals: Last 24 hours Impressions Cervical Spine MRI 11/24/17 0000 Signed Impressions: Service Date/Time: Friday, November 24, 2017 03:09 - CONCLUSION: There is a large prevertebral rim enhancing fluid collection as described above with possible small foci of air, and an abscess can have this appearance. There is mild canal narrowing at C5-6 and C6-7 with mild right foraminal narrowing present at these levels. Please see above discussion. Chase Lama MD Basic labs sent, white blood cell count normal, minimal elevations in ESR and CRP, discussed with Dr. Thurman who requested patient be held in the emergency department so he can see her later on this morning. Patient discussed with Dr. Jean Baptiste to follow-up Dr. Thurman recommendations and disposition the patient appropriately. Donovan Masterson MD Nov 24, 2017 01:47
--- NOTE | 2017-11-24 04:16 | RADRPT ---
EXAM DATE/TIME: 11/24/2017 03:09 [facility] COMPARISON: No previous studies available for comparison. INDICATIONS : Right arm weakness . Fusion 11/17/2017. CONTRAST: 14 cc Omniscan (gadodiamide) IV MEDICAL HISTORY : Hypertension. Diabetes mellitus type 2. SURGICAL HISTORY : Fusion, cervical. Fusion, lumbar. CABG hysterectomy, tonsilectomy ENCOUNTER: Subsequent ACUITY: 2 day PAIN SCORE: 6/10 LOCATION: cervical TECHNIQUE: Multiplanar, multisequence MRI examination of the cervical spine was performed. FINDINGS: The patient is status post anterior cervical discectomy and intervertebral fusion hardware placement at C5-C7. Alignment is normal. There is prevertebral soft tissue swelling, and there is a large preve rtebral fluid collection with rim enhancement identified. On sagittal IR image 10 this measures appro ximate 7.6 cm in cephalocaudal dimension and 2 cm in AP dimension. It is incompletely evaluated in th e axial projection to extend 1.3 cm anterior to C6-7 in transverse dimension on axial image 19 of ser ies 10. There may be a small locule of air seen on image 10 of series 4 within this collection. The p ossibility of abscess should be entertained. No definite evidence for epidural hematoma. C2-C3: The thecal sac has a normal configuration. There is no evidence of disc herniation or spinal canal stenosis. The neural foramina are patent bilaterally. C3-C4: The thecal sac has a normal configuration. There is no evidence of disc herniation or spinal canal s tenosis. The neural foramina are patent bilaterally. C4-C5: The thecal sac has a normal configuration. There is no evidence of disc herniation or spinal canal s tenosis. The neural foramina are patent bilaterally. C5-C6: There is mild canal narrowing with effacement of the ventral sac at the level of the intervertebral f usion graft which extends slightly posterior to the vertebral body origin. This abuts the ventral asp ect of the cord. There is mild abutment of the exiting ventral C6 nerve root on the right with slight right foraminal narrowing. C6-C7: The intervertebral fusion graft effaces the ventral thecal sac with mild canal narrowing. There is tr arabella bilateral foraminal narrowing. C7-T1: The thecal sac has a normal configuration. There is no evidence of disc herniation or spinal canal s tenosis. The neural foramina are patent bilaterally. CONCLUSION: There is a large prevertebral rim enhancing fluid collection as described above with possible small f oci of air, and an abscess can have this appearance. There is mild canal narrowing at C5-6 and C6-7 w ith mild right foraminal narrowing present at these levels. Please see above discussion. Chase Lama MD on November 24, 2017 at 4:07 Board Certified Radiologist. This report was verified electronically.
[2017-11-24] MEDS ORDERED: SODIUM CHLORIDE 0.9% FLUSH 10 ML FLUSH IV FLUSH PRN ×2 (04:30→14:30)
[2017-11-24 04:45] LABS: AUTOMATED NEUTROPHIL # 4.3 TH/MM3 (1.8-7.7); BASOPHIL % 0.6 % (0.0-2.0); EOSINOPHIL # 0.2 TH/MM3 (0-0.4); EOSINOPHIL % 2.2 % (0.0-4.0); HEMATOCRIT 33.3 % (35.0-46.0); HEMOGLOBIN 11.1 GM/DL (11.6-15.3); LYMPH % 34.4 % (9.0-44.0); LYMPHOCYTE # 2.7 TH/MM3 (1.0-4.8); MEAN CORPUSCULAR HEMOGLOBIN 27.3 PG (27.0-34.0); MEAN CORPUSCULAR HGB CONC 33.2 % (32.0-36.0); MEAN PLATELET VOLUME 8.1 FL (7.0-11.0); MONO % 8.2 % (0.0-8.0); MONOCYTE # 0.6 TH/MM3 (0-0.9); NEUT % 54.6 % (16.0-70.0); PLATELET COUNT 192 TH/MM3 (150-450); RED BLOOD COUNT 4.05 MIL/MM3 (4.00-5.30); RED CELL DISTRIBUTION WIDTH 14.7 % (11.6-17.2); WHITE BLOOD COUNT 7.8 TH/MM3 (4.0-11.0)
[2017-11-24 05:01] LABS: ALBUMIN 2.8 GM/DL (3.4-5.0); AST (GOT) 17 U/L (15-37); BICARBONATE 26.3 MEQ/L (21.0-32.0); BLOOD UREA NITROGEN 8 MG/DL (7-18); CALCIUM 7.8 MG/DL (8.5-10.1); CHLORIDE 102 MEQ/L (98-107); CREATININE 1.17 MG/DL (0.50-1.00); GLOMERULAR FILTRATION RATE 48 ML/MIN (>89); GLUCOSE,RANDOM 123 MG/DL (74-106); SODIUM (NA) 134 MEQ/L (136-145)
[2017-11-24 05:02] LABS: ALT (GPT) 15 U/L (10-53)
[2017-11-24 05:04] LABS: ALKALINE PHOSPHATASE 122 U/L (45-117); TOTAL BILIRUBIN ADULT 0.4 MG/DL (0.2-1.0); TOTAL PROTEIN 6.8 GM/DL (6.4-8.2)
[2017-11-24] MEDS ORDERED: DEXAMETHASONE SOD PHOS 20 MG/5 ML VIAL IV PUSH ONE (05:45)
[2017-11-24] MEDS: SODIUM CHLOR 0.9% 1000 ML INJ 1,000 ML IV SCH ×2 (07:53→15:15)
--- NOTE | 2017-11-24 08:33 | PD ---
Data Data Last Documented VS Vital Signs Date Time Temp Pulse Resp B/P (MAP) Pulse Ox O2 Delivery O2 Flow Rate FiO2 11/24/17 07:22 96 Room Air 2.00 11/24/17 07:22 61 14 11/24/17 00:54 98.5 Orders Orders Mri C Spine W&W/O Contrast (11/24/17 ) Gadodiamide Pf Inj (Omniscan Pf Inj) (11/24/17 00:53) Complete Blood Count With Diff (11/24/17 04:22) Comprehensive Metabolic Panel (11/24/17 04:22) Lactic Acid (11/24/17 04:22) Iv Access Insert/Monitor (11/24/17 04:22) Ecg Monitoring (11/24/17 04:22) Oximetry (11/24/17 04:22) Sodium Chloride 0.9% Flush (Ns Flush) (11/24/17 04:30) Westergren Sedimentation Rate (11/24/17 04:22) C-Reactive Protein (Crp) (11/24/17 04:22) Dexamethasone Inj (Decadron Inj) (11/24/17 05:45) Consult Neurosurgery (11/24/17 ) Diet Npo (11/24/17 Breakfast) (Hub Use Only)Inp Phy Cons/Ref (11/24/17 ) NPO (11/24/17 07:08) Sodium Chlor 0.9% 1000 Ml Inj (Ns 1000 M (11/24/17 07:15) Admit Order (Ed Use Only) (11/24/17 ) Labs Laboratory Tests Test 11/24/17 04:30 White Blood Count 7.8 TH/MM3 Red Blood Count 4.05 MIL/MM3 Hemoglobin 11.1 GM/DL Hematocrit 33.3 % Mean Corpuscular Volume 82.0 FL Mean Corpuscular Hemoglobin 27.3 PG Mean Corpuscular Hemoglobin Concent 33.2 % Red Cell Distribution Width 14.7 % Platelet Count 192 TH/MM3 Mean Platelet Volume 8.1 FL Neutrophils (%) (Auto) 54.6 % Lymphocytes (%) (Auto) 34.4 % Monocytes (%) (Auto) 8.2 % Eosinophils (%) (Auto) 2.2 % Basophils (%) (Auto) 0.6 % Neutrophils # (Auto) 4.3 TH/MM3 Lymphocytes # (Auto) 2.7 TH/MM3 Monocytes # (Auto) 0.6 TH/MM3 Eosinophils # (Auto) 0.2 TH/MM3 Basophils # (Auto) 0.0 TH/MM3 CBC Comment DIFF FINAL Differential Comment Erythrocyte Sedimentation Rate 59 mm/hr Blood Urea Nitrogen 8 MG/DL Creatinine 1.17 MG/DL Random Glucose 123 MG/DL Total Protein 6.8 GM/DL Albumin 2.8 GM/DL Calcium Level 7.8 MG/DL Alkaline Phosphatase 122 U/L Aspartate Amino Transf (AST/SGOT) 17 U/L Alanine Aminotransferase (ALT/SGPT) 15 U/L Total Bilirubin 0.4 MG/DL Sodium Level 134 MEQ/L Potassium Level 3.6 MEQ/L Chloride Level 102 MEQ/L Carbon Dioxide Level 26.3 MEQ/L Anion Gap 6 MEQ/L Estimat Glomerular Filtration Rate 48 ML/MIN Lactic Acid Level 1.1 mmol/L C-Reactive Protein 5.60 MG/DL MDM Supervised Visit with NITESH: No Narrative Course Patient signed out to me to follow-up on consultation from neurosurgery. Spoke with Dr. Thurman, will admit patient. Prem Jean Baptiste MD Nov 24, 2017 08:33
[2017-11-24] MEDS ORDERED: SODIUM CHLOR 0.9% 250 ML INJ 250 ML IV ONE ×2 (12:00)
[2017-11-24] MEDS ORDERED: LACTATED RINGER'S 1000 ML INJ 1,000 ML IV ONE ×2 (12:00)
[2017-11-24] MEDS ORDERED: LIDOCAINE HCL 1% PF 5 ML SYRINGE OTHER ONE ×2 (12:00)
[2017-11-24] MEDS ORDERED: CHLORHEXIDINE GLUCONATE 2 % 1 PACK (2 CLOTHS) TOPICAL PRN (12:00)
[2017-11-24] MEDS ORDERED: PROPOFOL 200 MG/20 ML AMP IV ONE ×2 (12:00)
[2017-11-24] MEDS ORDERED: LACTATED RINGER'S 1000 ML IV PRN (12:00)
[2017-11-24] MEDS ORDERED: ONDANSETRON HCL 4 MG/2 ML VIAL IV ONE ×2 (12:00)
[2017-11-24] MEDS ORDERED: METOPROLOL TARTRATE 25 MG TAB PO PRN (12:00)
[2017-11-24] MEDS ORDERED: SODIUM CHLORIDE 0.9% 20 ML VIAL IV ONE ×2 (12:00)
[2017-11-24] MEDS ORDERED: DEXAMETHASONE SOD PHOS 4 MG/ML VIAL IV ONE ×2 (12:00)
[2017-11-24] MEDS ORDERED: POVIDONE IODINE 5% (ANTISEPSIS KIT) 4 APPLICATIONS EACH NARE PRN (12:00)
[2017-11-24] MEDS ORDERED: SODIUM CHLORID 0.9% 500 ML IV PRN (12:00)
[2017-11-24] MEDS ORDERED: KETAMINE HCL 500 MG/5 ML VIAL ONE (12:05)
[2017-11-24] MEDS ORDERED: FAMOTIDINE 20 MG/2 ML VIAL ONE (12:10)
[2017-11-24] MEDS ORDERED: GELFOAM SIZE 100 ONE (12:17)
[2017-11-24] MEDS ORDERED: VANCOMYCIN HCL 1000 MG VIAL ONE ×2 (12:17→12:19)
[2017-11-24] MEDS ORDERED: BUPIVACAINE/EPINEPHRINE 0.5% PF 30 ML VIAL ONE (12:17)
[2017-11-24] MEDS ORDERED: THROMBIN (TOPICAL) 5,000 UNIT VIAL ONE (12:17)
[2017-11-24] MEDS ORDERED: VANCOMYCIN 500 MG VIAL ONE (12:18)
[2017-11-24] MEDS ORDERED: HYDROmorphone HCL PF 2 MG/ML VIAL ONE (12:23)
[2017-11-24] MEDS ORDERED: FAMOTIDINE 20 MG/2 ML VIAL IV ONE (12:30)
[2017-11-24 13:27] LABS: INTERNATIONAL NORMALIZED RATIO 1.1 RATIO; PROTHROMBIN TIME - PATIENT 10.9 SEC (9.8-11.6)
--- NOTE | 2017-11-24 14:29 | PD.OP ---
Operative Report Date of Surgery: Nov 24, 2017 Preoperative Diagnosis: Prevertebral fluid collection status post anterior C5-6 and C6-7 discectomy with fusion Postoperative Diagnosis: Seroma Procedure: Anterior cervical incision and drainage of prevertebral seromatous fluid Anesthesia: Gen. endotracheal by [facility] Surgeon: Wilbur Thurman M.D. Operation and Findings: Following administration of general endotracheal anesthesia, the patient placed in a supine position and sequential compression devices placed and the head secured in a doughnut with a roll under the neck. The anesthesiologist did not notice any tracheal deviation or difficulty with intubation. The Steri-Strips at the left anterior cervical incision site were removed and the area prepped and draped with beta insertion of pain in the usual sterile fashion. Subcuticular stitches along with the stitches platysmal muscle were incised and the previous surgical dissection plane used to access the prevertebral space. No significant swelling was noted. No obvious infectious or pustular collections were noted or any hematoma. There was some serosanguineous type of fluid which was evacuated and cultures also sent out. A gram of vancomycin intravenously was administered. The area was then copiously irrigated with vancomycin solution. A 4 mm drain was then placed in the prevertebral space and exited through a separate stab incision site and secured to the skin with a 3-0 nylon thigh and connected to a drainage bag. The platysma was then approximated using 3-0 Vicryl interrupted sutures and 3-0 Vicryl subcuticular sutures also placed in interrupted fashion and final skin closure was messed on Steri-Strips. A sterile dressing was then applied and the patient extubated and taken recovery room. There are no intraoperative complications and all sponge and needle count was correct at the end the procedure. Estimated blood loss about 5 cc. Wilbur Thurman MD Nov 24, 2017 14:29
[2017-11-24] MEDS ORDERED: LACTULOSE SYRUP 20 GM/30 ML CUP PO PRN (14:30)
[2017-11-24] MEDS ORDERED: MAGNESIUM HYDROXIDE SUSP 30 ML CUP PO PRN (14:30)
[2017-11-24] MEDS ORDERED: HYDROmorphone HCL PF 1 MG/ML VIAL IV PUSH PRN (14:30)
[2017-11-24] MEDS ORDERED: cloNIDine HCL 0.1 MG TAB PO PRN (14:30)
[2017-11-24] MEDS ORDERED: BISACODYL 10 MG SUPP RECTAL PRN (14:30)
[2017-11-24] MEDS ORDERED: SENNOSIDES 8.6 MG TAB PO PRN (14:30)
[2017-11-24] MEDS ORDERED: CALCIUM GLUCONATE INJ 1 GM in SODIUM CHLORIDE 0.9% INJ 100 ML IV PRN (14:30)
[2017-11-24] MEDS ORDERED: ONDANSETRON HCL 4 MG/2 ML VIAL IV PUSH PRN (14:30)
[2017-11-24] MEDS ORDERED: MENTHOL LOZENGE BUCCAL PRN (14:30)
[2017-11-24] MEDS ORDERED: ACETAMINOPHEN 325 MG TAB PO PRN (14:30)
[2017-11-24] MEDS ORDERED: POTASSIUM CHLOR 20 MEQ PREMIX 100 ML IV PRN (14:30)
[2017-11-24] MEDS ORDERED: MAGNESIUM SULFATE INJ 2 GM in SODIUM CHLORIDE 0.9% INJ 100 ML IV PRN (14:30)
[2017-11-24] MEDS ORDERED: PROMETHAZINE INJ 25 MG/ML VIAL IM PRN (14:30)
[2017-11-24] MEDS ORDERED: RESP: ALBUTEROL 2.5 MG/3 ML NEB (PRN) NEB (14:30)
[2017-11-24] MEDS ORDERED: HYDROmorphone HCL 2 MG TAB PO PRN (14:30)
[2017-11-24] MEDS ORDERED: ALUMINUM/MAGNESIUM/SIMETH 30 ML CUP PO PRN (14:30)
[2017-11-24] MEDS ORDERED: MIDAZOLAM HCL 2 MG/2 ML VIAL ONE (14:42)
[2017-11-24] MEDS ORDERED: ceFAZolin INJ 1,000 MG VIAL ONE (14:49)
[2017-11-24] MEDS ORDERED: DO NOT ADM ANY ANTICOAGULANT DRUGS PRN (15:00)
[2017-11-24] MEDS: DEXAMETHASONE SOD PHOS 4 MG/ML VIAL IV PUSH SCH ×2 (15:01→22:00)
[2017-11-24] MEDS: NS + KCL 20 MEQ INJ 1,000 ML IV SCH (15:01)
--- NOTE | 2017-11-24 15:12 | HHI.NSPN ---
History Interval History 56-year-old lady with chronic history of neck and low back pain with associated headaches at left upper extremity radiculopathy. She underwent an anterior C5- 6 and C6-7 microdiscectomy with fusion week ago with subsequent resolution of her left upper extremity radicular symptoms. She relates the last few days she had some nausea and difficulty swallowing. She also suffers from significant anxiety and relates that she notices some dyspnea. No fevers or chills noted or any swelling or drainage from the cervical incision site. MRI scan cervical spine obtained reveals some prevertebral fluid collection. Exam Results Vital Signs Date Time Temp Pulse Resp B/P (MAP) Pulse Ox O2 Delivery O2 Flow Rate FiO2 11/24/17 10:52 98 Nasal Cannula 2 11/24/17 07:22 11/24/17 07:22 61 14 11/24/17 00:54 98.5 Physical Examination Anterior cervical incision site to his Steri-Strips in place with no erythema or drainage or swelling. No cervical tenderness to palpation in trachea is midline. She is lethargic but easily arousable Her speech is fluent with no hoarseness noted. She moves all 4 extremities with good strength Chest clear to position bilaterally Heart regular rate and rhythm Abdomen soft nontender Extremities no cyanosis edema or tenderness in the calf Lab, Micro, Other Results Laboratory Tests Test 11/24/17 04:30 11/24/17 12:25 White Blood Count 7.8 Red Blood Count 4.05 Hemoglobin 11.1 Hematocrit 33.3 Mean Corpuscular Volume 82.0 Mean Corpuscular Hemoglobin 27.3 Mean Corpuscular Hemoglobin Concent 33.2 Red Cell Distribution Width 14.7 Platelet Count 192 Mean Platelet Volume 8.1 Neutrophils (%) (Auto) 54.6 Lymphocytes (%) (Auto) 34.4 Monocytes (%) (Auto) 8.2 Eosinophils (%) (Auto) 2.2 Basophils (%) (Auto) 0.6 Neutrophils # (Auto) 4.3 Lymphocytes # (Auto) 2.7 Monocytes # (Auto) 0.6 Eosinophils # (Auto) 0.2 Basophils # (Auto) 0.0 CBC Comment DIFF FINAL Differential Comment Erythrocyte Sedimentation Rate 59 Blood Urea Nitrogen 8 Creatinine 1.17 Random Glucose 123 Total Protein 6.8 Albumin 2.8 Calcium Level 7.8 Alkaline Phosphatase 122 Aspartate Amino Transf (AST/SGOT) 17 Alanine Aminotransferase (ALT/SGPT) 15 Total Bilirubin 0.4 Sodium Level 134 Potassium Level 3.6 Chloride Level 102 Carbon Dioxide Level 26.3 Anion Gap 6 Estimat Glomerular Filtration Rate 48 Lactic Acid Level 1.1 C-Reactive Protein 5.60 Prothrombin Time 10.9 Prothromb Time International Ratio 1.1 Activated Partial Thromboplast Time 24.8 Date/Time Source Procedure Growth Status 11/24/17 13:52 Abscess Neck Fungal Smear Pending Received 11/24/17 13:52 Abscess Neck Fungal Culture Pending Received Medical Decision Making Impression and Plan 56-year-old lady with a chronic pain syndrome who is 1 week status post anterior C6-7 and C5-6 microdiscectomy with fusion with complaints of the difficulty swallowing and dyspnea on the last 48 hours. She does have some prevertebral fluid collection questionable with this is hematoma versus serosanguineous fluid or infection. We'll proceed with anterior cervical prevertebral fluid drainage and cultures to ensure no infection or hematoma. Procedure discussed the risks and benefits of an informed consent obtained the patient and her . We will also place her on a 24-hour course of steroids to help with her dysphagia. She has a chronic pain syndrome with opiate dependency and pain control will be an issue with her. Wilbur Thurman MD Nov 24, 2017 15:12
[2017-11-24] MEDS ORDERED: HYDROmorphone HCL PF 2 MG/ML VIAL IV PUSH PRN (16:30)
[2017-11-24] MEDS ORDERED: GLUCAGON 1 MG/ML VIAL OTHER PRN (17:15)
[2017-11-24] MEDS ORDERED: DEXTROSE 50% IN WATER 50 ML VIAL(D50) IV PUSH PRN (17:15)
--- NOTE | 2017-11-24 17:21 | PD.CONS ---
[facility] Service Critical Care Medicine Consult Requested By Neurosurgery Service Reason for Consult Critical Care Primary Care Physician Araceli Whitten D.O. History of Present Illness 56 y/o woman s/p drainage of cervical region seroma. Extubated, breathing comfortably. Swallows without difficulty. Protects airway well. Review of Systems ROS No chest pain or SOB. Minor incisional pain. Past Family Social History Allergies: Coded Allergies: butorphanol (Verified Allergy, Severe, Hallucinations, 11/08/17) codeine (Verified Allergy, Severe, Hives, 11/08/17) fentanyl (Verified Allergy, Severe, Confusion, 11/08/17) morphine (Verified Allergy, Severe, Hallucinations, 11/08/17) Past Medical History Past Medical History Hx Anticoagulant Therapy: Yes (Plavix) Cancer: No Cardiac Catheterization: Yes Cardiovascular Problems: Yes (HTN, CAD, CABGx4) High Cholesterol: Yes Chest Pain: Yes Cirrhosis: Yes Coronary Artery Disease: Yes Diabetes: Yes (Metformin) Diminished Hearing: No Endocrine: Yes (NON ALCOHOLIC CYRROHSIS OF LIVER) Genitourinary: No Hepatitis: No Hiatal Hernia: No Hypertension: Yes Immune Disorder: No Neurologic: Yes (PAIN AND NUMBNESS, RUPTURED AND BULGING DISCS) Psychiatric: No Reproductive: No Respiratory: Yes (PE-2011) Migraines: Yes Renal Failure: Yes Thyroid Disease: Yes ?: Not Menopausal: Yes Past Surgical History Abdominal Surgery: Yes (GALLBLADDER) AICD: No Body Medical Devices: [address] Cardiac Surgery: Yes (OPEN HEART) Cholecystectomy: Yes Coronary Artery Bypass Graft: Yes (4 VESSELS-2011) Coronary Stent: Yes (X2-2011) Endocrine Surgery: Yes (THRYROID) Gynecologic Surgery: Yes (HYSTERECTOMY) Hysterectomy: Yes Joint Replacement: No Pacemaker: No Tonsillectomy: Yes (1971) Other Surgery: Yes Social History Alcohol Use: No Tobacco Use: No Substance Use: No Allergies-Medications Allergies-Medications (Allergen,Severity, Reaction): Coded Allergies: butorphanol (Verified Allergy, Severe, Hallucinations, 11/08/17) codeine (Verified Allergy, Severe, Hives, 11/08/17) fentanyl (Verified Allergy, Severe, Confusion, 11/08/17) morphine (Verified Allergy, Severe, Hallucinations, 11/08/17) Reported Meds & Prescriptions Reported Meds & Active Scripts Active Xanax (Alprazolam) 1 Mg Tab 1 Mg PO Q12HR PRN Dilaudid (Hydromorphone HCl) 2 Mg Tab 2 Mg PO Q8H PRN Reported Simvastatin 40 Mg Tab 40 Mg PO HS Amitriptyline (Amitriptyline HCl) 150 Mg Tab 150 Mg PO HS Victoza Inj (Liraglutide Inj) 18 Mg/3 Ml Pen 1.8 Mg SQ HS Aspirin 81 Mg Chew 81 Mg CHEW DAILY Plavix (Clopidogrel Bisulfate) 75 Mg Tab 75 Mg PO DAILY Tizanidine (Tizanidine HCl) 4 Mg Cap 4 Mg PO DAILY Valium (Diazepam) 5 Mg Tab 5 Mg PO BID PRN Ambien (Zolpidem Tartrate) 10 Mg Tab 10 Mg PO HS PRN Lexapro (Escitalopram Oxalate) 20 Mg Tab 20 Mg PO DAILY Protonix (Pantoprazole Sodium) 20 Mg Tab 20 Mg PO HS Amlodipine (Amlodipine Besylate) 10 Mg Tab 10 Mg PO DAILY Coreg (Carvedilol) 6.25 Mg Tab 6.25 Mg PO BID Hydrocodone-Acetaminophen 10-325 mg Tab 1 Tab PO Q4H PRN Synthroid (Levothyroxine Sodium) 175 Mcg Tab 175 Mcg PO DAILY Estrace (Estradiol) 2 Mg Tab 2 Mg PO DAILY Januvia (Sitagliptin Phosphate) 25 Mg Tab 25 Mg PO DAILY Physical Exam Vital Signs Vital Signs Date Time Temp Pulse Resp B/P (MAP) Pulse Ox O2 Delivery O2 Flow Rate FiO2 11/24/17 15:45 98.1 78 12 155/77 (103) 97 Nasal Cannula 2 11/24/17 15:30 78 12 160/77 (104) 97 Nasal Cannula 2 11/24/17 15:15 79 12 160/76 (104) 96 Nasal Cannula 2 11/24/17 15:00 80 12 156/73 (100) 93 Nasal Cannula 2 11/24/17 14:45 82 12 152/70 (97) 95 Nasal Cannula 4 11/24/17 14:30 98.1 83 12 138/62 (87) 94 Nasal Cannula 4 11/24/17 10:52 98 Nasal Cannula 2 11/24/17 07:22 96 Room Air 2.00 11/24/17 07:22 61 14 128/56 (80) 96 Nasal Cannula 11/24/17 04:34 60 16 114/57 (76) 93 Room Air 11/24/17 00:54 98.5 76 16 111/56 (74) 97 Room Air Physical Exam Gen: Comfortable. Head: Normal. Neck: Dressing dry, cervical collar in place. No stridor or obstruction. Lungs: Clear. Heart: NL S1S2, RRR. Abdomen: Benign, soft. Extremities: Warm, well perfused. Neuro: Moves 4 limbs to command. O X 3, alert, cooperative. Laboratory Laboratory Tests Test 11/24/17 04:30 11/24/17 12:25 White Blood Count 7.8 Red Blood Count 4.05 Hemoglobin 11.1 Hematocrit 33.3 Mean Corpuscular Volume 82.0 Mean Corpuscular Hemoglobin 27.3 Mean Corpuscular Hemoglobin Concent 33.2 Red Cell Distribution Width 14.7 Platelet Count 192 Mean Platelet Volume 8.1 Neutrophils (%) (Auto) 54.6 Lymphocytes (%) (Auto) 34.4 Monocytes (%) (Auto) 8.2 Eosinophils (%) (Auto) 2.2 Basophils (%) (Auto) 0.6 Neutrophils # (Auto) 4.3 Lymphocytes # (Auto) 2.7 Monocytes # (Auto) 0.6 Eosinophils # (Auto) 0.2 Basophils # (Auto) 0.0 CBC Comment DIFF FINAL Differential Comment Erythrocyte Sedimentation Rate 59 Blood Urea Nitrogen 8 Creatinine 1.17 Random Glucose 123 Total Protein 6.8 Albumin 2.8 Calcium Level 7.8 Alkaline Phosphatase 122 Aspartate Amino Transf (AST/SGOT) 17 Alanine Aminotransferase (ALT/SGPT) 15 Total Bilirubin 0.4 Sodium Level 134 Potassium Level 3.6 Chloride Level 102 Carbon Dioxide Level 26.3 Anion Gap 6 Estimat Glomerular Filtration Rate 48 Lactic Acid Level 1.1 C-Reactive Protein 5.60 Prothrombin Time 10.9 Prothromb Time International Ratio 1.1 Activated Partial Thromboplast Time 24.8 Date/Time Source Procedure Growth Status 11/24/17 13:52 Abscess Neck Fungal Smear Pending Received 11/24/17 13:52 Abscess Neck Fungal Culture Pending Received Result Diagram: 11/24/1742911/24/17429 Assessment and Plan Assessment and Plan Assessment: 1. S/P drainage of cervical region seroma. 2. DM, Type 2 Plan: 1. HOB up 30 degrees. 2. Airway checks. 3. ADA diet. 4. SSI for euglycemia. 5. ZULMA drains to bulb suction. Overall impression: Stable respiratory and hemodynamic status. Andrew Barry MD Nov 24, 2017 17:21
[2017-11-24] MEDS: DIAZEPAM 5 MG TAB PO PRN (18:15)
[2017-11-24] MEDS: LABETALOL HCL 100 MG/20 ML VIAL IV PUSH PRN ×2 (18:15→22:48)
[2017-11-24] MEDS: INSULIN ASPART SUPPLEMENTAL SCALE SQ SCH ×2 (18:19→23:11)
[2017-11-24] MEDS ORDERED: FURO1TAB62 PO (19:33)
[2017-11-24] MEDS: SODIUM CHLORIDE 0.9% FLUSH 10 ML FLUSH IV FLUSH SCH (19:56)
[2017-11-24] MEDS: PANTOPRAZOLE SOD 20 MG DELAYED RELEASE TAB PO SCH (19:57)
[2017-11-24] MEDS: PRAVASTATIN SOD 80 MG TAB PO SCH (19:57)
[2017-11-24] MEDS: DOCUSATE SODIUM 50 MG/SENNA 8.6 MG TAB PO SCH (19:57)
[2017-11-24] MEDS: CARVEDILOL 6.25 MG TAB PO SCH (19:57)
[2017-11-24] MEDS: HYDROmorphone HCL PF 2 MG/ML VIAL IV PUSH PRN ×2 (19:58→23:04)
[2017-11-24] MEDS: AMITRIPTYLINE HCL 75 MG TAB PO SCH (21:39)
[2017-11-24] MEDS: ZOLPIDEM TARTRATE 10 MG TAB PO PRN (21:40)
[2017-11-24] MEDS: ceFAZolin INJ 500 MG in SODIUM CHLORIDE 0.9% INJ 100 ML IV SCH (22:07)
[2017-11-25] VITALS (11 sets, daily range): BP systolic 145–168; BP diastolic 68–79; PULSE 62–86; RESP 14–27; TEMP 97.2–98.7; O2SAT 95–100
[2017-11-25] MEDS: CYCLOBENZAPRINE HCL 10 MG TAB PO PRN (00:28)
[2017-11-25] MEDS: LABETALOL HCL 100 MG/20 ML VIAL IV PUSH PRN ×3 (00:32→10:15)
[2017-11-25] MEDS ORDERED: LABETALOL HCL 100 MG/20 ML VIAL IV PUSH PRN (01:30)
[2017-11-25] MEDS: NS + KCL 20 MEQ INJ 1,000 ML IV SCH ×3 (02:19→21:24)
[2017-11-25] MEDS: HYDROmorphone HCL PF 2 MG/ML VIAL IV PUSH PRN ×4 (02:21→21:12)
[2017-11-25] MEDS: DEXAMETHASONE SOD PHOS 4 MG/ML VIAL IV PUSH SCH ×2 (04:49→11:01)
[2017-11-25] MEDS: LEVOTHYROXINE SODIUM 75 MCG TAB PO SCH (04:50)
[2017-11-25] MEDS: INSULIN ASPART SUPPLEMENTAL SCALE SQ SCH ×3 (04:56→18:52)
[2017-11-25] MEDS: ceFAZolin INJ 500 MG in SODIUM CHLORIDE 0.9% INJ 100 ML IV SCH ×2 (05:34→15:00)
--- NOTE | 2017-11-25 08:05 | HHI.CCPN ---
Subjective Remarks/Hospital Course 56 y/o woman s/p drainage of cervical region seroma. Extubated, breathing comfortably. Swallows oral secretions without difficulty. Protects airway well. 11/25: Airway widely patent, no obstruction or stridor. Glucose control acceptable. Objective Vital Signs Date Time Temp Pulse Resp B/P (MAP) Pulse Ox O2 Delivery O2 Flow Rate FiO2 11/25/17 06:00 72 11/25/17 04:00 97.5 27 168/78 (108) 95 11/24/17 19:00 Nasal Cannula 2.00 Intake and Output 11/25/17 11/25/17 11/26/17 08:00 16:00 00:00 Intake Total 600 ml Output Total 705 ml Balance -105 ml Result Diagram: 11/24/1742911/24/17429 Objective Remarks Gen: Comfortable. Head: Normal. Neck: Dressing dry, cervical collar in place. No stridor or obstruction. Lungs: Clear. No adventitious sounds. Comfortable pattern. Heart: NL S1S2, RRR. Abdomen: Benign, soft. BS active. Extremities: Warm, well perfused. Neuro: Moves 4 limbs to command. O X 3, alert, cooperative. A/P Assessment and Plan Assessment: 1. S/P drainage of cervical region seroma. 2. DM, Type 2 Plan: 1. HOB up 30 degrees. 2. Airway checks. 3. ADA diet. 4. SSI for euglycemia. 5. ZULMA drains to bulb suction. 6. Convert to home diabetic regimen at discharge. Overall impression: Stable respiratory and hemodynamic status. Andrew Barry MD Nov 25, 2017 08:05
[2017-11-25] MEDS: CARVEDILOL 6.25 MG TAB PO SCH ×2 (10:59→21:03)
[2017-11-25] MEDS: SODIUM CHLORIDE 0.9% FLUSH 10 ML FLUSH IV FLUSH SCH ×2 (10:59→21:03)
[2017-11-25] MEDS: ASPIRIN 81 MG CHEW TAB CHEW SCH (10:59)
[2017-11-25] MEDS: ESTRADIOL 1 MG TAB PO SCH (10:59)
[2017-11-25] MEDS: ESCITALOPRAM OXALATE 20 MG TAB PO SCH (11:00)
[2017-11-25] MEDS: DOCUSATE SODIUM 50 MG/SENNA 8.6 MG TAB PO SCH ×2 (11:00→21:03)
[2017-11-25] MEDS: ALPRAZolam 1 MG TAB PO PRN (11:03)
--- NOTE | 2017-11-25 12:45 | HHI.NSPN ---
(Luma Manning) Note Status Status: Progress Note (Luma Manning) Interval History Interval History 56-year-old lady with chronic history of neck and low back pain with associated headaches at left upper extremity radiculopathy. She underwent an anterior C5- 6 and C6-7 microdiscectomy with fusion week ago with subsequent resolution of her left upper extremity radicular symptoms. She relates the last few days she had some nausea and difficulty swallowing. She also suffers from significant anxiety and relates that she notices some dyspnea. No fevers or chills noted or any swelling or drainage from the cervical incision site. MRI scan cervical spine obtained reveals some prevertebral fluid collection. 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 currently appears anxious, confused getting up and trying to walk around the room without help. however she is oriented x 3. eventually calmed down and sat in chair to eat her breakfast. (Luma Manning) Labs, Micro, & Vital Signs Results Date Time Temp Pulse Resp B/P (MAP) Pulse Ox O2 Delivery O2 Flow Rate FiO2 11/25/17 10:00 74 11/25/17 08:00 69 11/25/17 08:00 98.0 68 15 165/79 (107) 97 11/25/17 07:00 100 Room Air 11/25/17 06:00 72 11/25/17 04:00 97.5 86 27 168/78 (108) 95 11/25/17 04:00 86 11/25/17 02:00 80 11/25/17 00:00 97.2 86 17 165/75 (105) 98 11/25/17 00:00 86 11/24/17 22:00 85 11/24/17 20:00 86 11/24/17 20:00 98.2 86 13 177/71 (106) 98 11/24/17 19:00 99 Nasal Cannula 2.00 11/24/17 18:00 76 11/24/17 17:33 12 11/24/17 16:30 100 Nasal Cannula 2.00 11/24/17 16:15 77 11/24/17 16:15 98.3 78 15 166/72 (103) 100 11/24/17 15:45 98.1 78 12 155/77 (103) 97 Nasal Cannula 2 11/24/17 15:30 78 12 160/77 (104) 97 Nasal Cannula 2 11/24/17 15:15 79 12 160/76 (104) 96 Nasal Cannula 2 11/24/17 15:00 80 12 156/73 (100) 93 Nasal Cannula 2 11/24/17 14:45 82 12 152/70 (97) 95 Nasal Cannula 4 11/24/17 14:30 98.1 83 12 138/62 (87) 94 Nasal Cannula 4 Constitutional Vital Signs Date Time Temp Pulse Resp B/P (MAP) Pulse Ox O2 Delivery O2 Flow Rate FiO2 11/25/17 10:00 74 11/25/17 08:00 69 11/25/17 08:00 98.0 68 15 165/79 (107) 97 11/25/17 07:00 100 Room Air 11/25/17 06:00 72 11/25/17 04:00 97.5 86 27 168/78 (108) 95 11/25/17 04:00 86 11/25/17 02:00 80 11/25/17 00:00 97.2 86 17 165/75 (105) 98 11/25/17 00:00 86 11/24/17 22:00 85 11/24/17 20:00 86 11/24/17 20:00 98.2 86 13 177/71 (106) 98 11/24/17 19:00 99 Nasal Cannula 2.00 11/24/17 18:00 76 11/24/17 17:33 12 11/24/17 16:30 100 Nasal Cannula 2.00 11/24/17 16:15 77 11/24/17 16:15 98.3 78 15 166/72 (103) 100 11/24/17 15:45 98.1 78 12 155/77 (103) 97 Nasal Cannula 2 11/24/17 15:30 78 12 160/77 (104) 97 Nasal Cannula 2 11/24/17 15:15 79 12 160/76 (104) 96 Nasal Cannula 2 11/24/17 15:00 80 12 156/73 (100) 93 Nasal Cannula 2 11/24/17 14:45 82 12 152/70 (97) 95 Nasal Cannula 4 11/24/17 14:30 98.1 83 12 138/62 (87) 94 Nasal Cannula 4 (Luma Manning) Review of Systems Constitutional: DENIES: Fever, Chills Respiratory: DENIES: Shortness of breath Cardiovascular: DENIES: Chest pain Musculoskeletal: COMPLAINS OF: Stiffness, DENIES: Neck pain Neurologic: DENIES: Localized weakness Psychiatric: COMPLAINS OF: Anxiety (Luma Manning) Physical Exam Ms. Coker is alert, awake and oriented to time, place and person. Speech is fluent. Appears anxious, mildly confused- looking around room for her purse. Wound with clean dry dressing in place Cranial nerve examination: pupils 7-8 mm bilaterally round and reactive to light. Facial motor are normal and symmetrical. Neck immobilize by raad collar Muscle strength is normal in all muscle groups of both upper and lower extremities. Sensory examination is intact to light touch in both the upper and lower extremities. Gait: getting out of bed, ambulating in room unassisted appearing mildly unsteady (Luma Manning) Medications Current Medications Current Medications Medications (Trade) Dose Ordered Sig/Juan Carlos Route PRN Reason Start Time Stop Time Status Last Admin Dose Admin Sodium Chloride (NS Flush) 2 ml UNSCH PRN IV FLUSH FLUSH AFTER USING IV ACCESS 11/24/17 04:30 Lactated Ringer's 1,000 ml @ 30 mls/hr Q24H PRN IV SEE LABEL COMMENTS 11/24/17 12:00 11/27/17 11:59 Sodium Chloride 500 ml @ 30 mls/hr [id number] PRN IV SEE LABEL COMMENTS 11/24/17 12:00 11/27/17 11:59 Metoprolol Tartrate (Lopressor) 25 mg ALGOLOGIST PRN PO SEE LABEL COMMENTS 11/24/17 12:00 11/27/17 11:59 Povidone Iodine (Betadine 5% Antisepsis Kit) 1 applic ALGOLOGIST PRN EACH NARE SEE LABEL COMMENTS 11/24/17 12:00 11/27/17 11:59 Chlorhexidine Gluconate (Chlorhexidine 2% Cloth) 3 pack ALGOLOGIST PRN TOPICAL SEE LABEL COMMENTS 11/24/17 12:00 11/27/17 11:59 Alprazolam (Xanax) 1 mg Q12HR PRN PO ANXIETY 11/24/17 14:30 11/25/17 11:03 Amitriptyline HCl (Elavil) 150 mg HS PO 11/24/17 21:00 11/24/17 21:39 Amlodipine Besylate (Norvasc) 10 mg DAILY PO 11/25/17 09:00 11/25/17 11:00 Aspirin (Aspirin Chew) 81 mg DAILY CHEW 11/25/17 09:00 11/25/17 10:59 Carvedilol (Coreg) 6.25 mg BID PO 11/24/17 21:00 11/25/17 10:59 Diazepam (Valium) 5 mg BID PRN PO ANXIETY 11/24/17 14:30 11/24/17 18:15 Escitalopram Oxalate (Lexapro) 20 mg DAILY PO 11/25/17 09:00 11/25/17 11:00 Estradiol (Estradiol) 2 mg DAILY PO 11/25/17 09:00 11/25/17 10:59 Pantoprazole Sodium (Protonix) 20 mg HS PO 11/24/17 21:00 11/24/17 19:57 Tizanidine HCl (Zanaflex) 4 mg DAILY PO 11/25/17 09:00 11/25/17 11:00 Zolpidem Tartrate (Ambien) 10 mg HS PRN PO INSOMNIA 11/24/17 14:30 11/24/17 21:40 Levothyroxine Sodium (Synthroid) 75 mcg DAILY@0600 PO 11/25/17 06:00 11/25/17 04:50 Pravastatin Sodium (Pravachol) 80 mg HS PO 11/24/17 21:00 11/24/17 19:57 Potassium Chloride/Sodium Chloride 1,000 ml @ 100 mls/hr Q10H IV 11/24/17 16:00 11/25/17 02:19 Sodium Chloride (NS Flush) 2 ml UNSCH PRN IV FLUSH FLUSH AFTER USING IV ACCESS 11/24/17 14:30 Sodium Chloride (NS Flush) 2 ml BID IV FLUSH 11/24/17 21:00 11/25/17 10:59 Al Hydrox/Mg Hydrox/Simethicone (Mag-Al Plus Susp Liq) 30 ml Q6H PRN PO DYSPEPSIA 11/24/17 14:30 Ondansetron HCl (Zofran Inj) 4 mg Q6H PRN IV PUSH NAUSEA OR VOMITING 11/24/17 14:30 Promethazine HCl (Phenergan Inj) 25 mg Q4H PRN IM NAUSEA OR VOMITING 11/24/17 14:30 Calcium Gluconate 1 gm/Sodium Chloride 110 ml @ 110 mls/hr UNSCH PRN IV SEE LABEL COMMENTS 11/24/17 14:30 Potassium Chloride 100 ml @ 50 mls/hr UNSCH PRN IV POTASSIUM LESS THAN 4 11/24/17 14:30 Magnesium Sulfate 2 gm/Sodium Chloride 104 ml @ 100 mls/hr UNSCH PRN IV MAGNESIUM LESS THAN 2 11/24/17 14:30 Acetaminophen/ Hydrocodone Bitart ([place] 10-325 Mg) 1 tab Q4H PRN PO PAIN SCALE 1 TO 5 11/24/17 14:30 Cyclobenzaprine HCl (Flexeril) 10 mg Q8H PRN PO MUSCLE SPASM 11/24/17 14:30 11/25/17 00:28 Labetalol HCl (Trandate Inj) 10 mg Q1H PRN IV PUSH SYS BP GREATER THAN 170 MMHG 11/24/17 14:30 11/25/17 10:15 Clonidine (Catapres) 0.1 mg Q6H PRN PO SYS BP GREATER THAN 170 MMHG 11/24/17 14:30 11/24/17 21:39 Acetaminophen (Tylenol) 650 mg Q4H PRN PO TEMPERATURE > 101.5 F 11/24/17 14:30 Menthol ([place] Tita) 1 lozenge UNSCH PRN BUCCAL SORE THROAT 11/24/17 14:30 Albuterol Sulfate (Albuterol Neb) 2.5 mg Q4HR NEB PRN NEB WHEEZING 11/24/17 14:30 Senna/Docusate Sodium (Masha-Colace) 1 tab BID PO 11/24/17 21:00 11/25/17 11:00 Magnesium Hydroxide (Milk Of Magnesia Liq) 30 ml Q12H PRN PO Mild constipation 11/24/17 14:30 Sennosides (Senokot) 17.2 mg Q12H PRN PO Moderate constipation 11/24/17 14:30 Bisacodyl (Dulcolax Supp) 10 mg DAILY PRN RECTAL SEVERE CONSITIPATION 11/24/17 14:30 Lactulose (Lactulose Liq) 30 ml DAILY PRN PO SEVERE CONSITIPATION 11/24/17 14:30 Cefazolin Sodium 500 mg/Sodium Chloride 100 ml @ 200 mls/hr Q8H IV 11/24/17 23:00 11/25/17 05:34 Miscellaneous Information ALL NURSING DEPARTME... UNSCH PRN .XX SEE LABEL COMMENTS 11/24/17 15:00 11/25/17 14:59 Dextrose (D50w (Vial) Inj) 50 ml UNSCH PRN IV PUSH HYPOGLYCEMIA-SEE COMMENTS 11/24/17 17:15 Glucagon (Glucagon Inj) 1 mg UNSCH PRN OTHER HYPOGLYCEMIA-SEE COMMENTS 11/24/17 17:15 Insulin Aspart (NovoLOG SUPPLEMENTAL SCALE) 1 Q6H SQ 11/24/17 18:00 11/25/17 04:56 Hydromorphone HCl (Dilaudid Pf Inj) 2 mg Q3H PRN IV PUSH BREAKTHROUGH PAIN >6 11/24/17 18:00 11/25/17 11:02 Labetalol HCl (Trandate Inj) 10 mg Q4H PRN IV PUSH SBP >165 11/25/17 01:30 (Luma Manning) Medical Decision Making MDM Remarks 56-year-old female underwent anterior C6-7 and C5-6 microdiscectomy with fusion with complaints of the difficulty swallowing and dyspnea. She had some prevertebral fluid collection questionable with this is hematoma versus serosanguineous fluid or infection. she underwent anterior cervical prevertebral fluid drainage and cultures to ensure no infection or hematoma with Dr. Thurman, so far gram stain and fungal stain negative history of anxiety, with currently intermittent confusion (Luma Manning) Plan Plan Remarks follow up cultures dw patient to keep collar on at all times appreciate CC assistance - resp and hemodynamically stable will transfer out of [facility], to med/surg near near [facility] station due to intermittent confusion and impulsiveness (Luma Manning) Attending Statement The exam, history, and the medical decision-making described in the above note were completed with the assistance of the mid-level provider. I reviewed and agree with the findings presented. I attest that I had a [id number] encounter with the patient on the same day, and personally performed and documented my assessment and findings in the medical record. (Guillermo Camacho MD) Luma Manning Nov 25, 2017 12:45 Guillermo Camacho MD Nov 26, 2017 19:16
[2017-11-25] MEDS: DIAZEPAM 5 MG TAB PO PRN (17:03)
[2017-11-25] MEDS: PRAVASTATIN SOD 80 MG TAB PO SCH (21:02)
[2017-11-25] MEDS: AMITRIPTYLINE HCL 75 MG TAB PO SCH (21:02)
[2017-11-25] MEDS: PANTOPRAZOLE SOD 20 MG DELAYED RELEASE TAB PO SCH (21:02)
[2017-11-26 00:21] VITALS: BP 132/64; PULSE 72; RESP 18; TEMP 97.4; O2SAT 95
[2017-11-26] MEDS: HYDROmorphone HCL PF 2 MG/ML VIAL IV PUSH PRN ×4 (00:32→21:11)
[2017-11-26] MEDS: ceFAZolin INJ 500 MG in SODIUM CHLORIDE 0.9% INJ 100 ML IV SCH ×4 (00:32→23:09)
[2017-11-26] MEDS: ALPRAZolam 1 MG TAB PO PRN ×2 (00:35→13:29)
[2017-11-26] MEDS: ZOLPIDEM TARTRATE 10 MG TAB PO PRN ×2 (00:36→23:10)
[2017-11-26] MEDS: CYCLOBENZAPRINE HCL 10 MG TAB PO PRN ×2 (00:40→21:09)
[2017-11-26] MEDS: INSULIN ASPART SUPPLEMENTAL SCALE SQ SCH ×5 (01:18→23:31)
[2017-11-26] MEDS: ACETAMINOPHEN/HYDROcodone 325 MG/10 MG TAB PO PRN ×5 (03:29→23:30)
[2017-11-26 04:47] VITALS: BP 127/59; PULSE 71; RESP 18; TEMP 97.2; O2SAT 93
[2017-11-26] MEDS: LEVOTHYROXINE SODIUM 75 MCG TAB PO SCH (06:13)
[2017-11-26] MEDS: ESTRADIOL 1 MG TAB PO SCH (08:05)
[2017-11-26] MEDS: ASPIRIN 81 MG CHEW TAB CHEW SCH (08:06)
[2017-11-26] MEDS: DOCUSATE SODIUM 50 MG/SENNA 8.6 MG TAB PO SCH ×2 (08:07→21:08)
[2017-11-26] MEDS: ESCITALOPRAM OXALATE 20 MG TAB PO SCH (08:07)
[2017-11-26] MEDS: CARVEDILOL 6.25 MG TAB PO SCH ×2 (08:07→21:08)
[2017-11-26] MEDS: NS + KCL 20 MEQ INJ 1,000 ML IV SCH ×2 (08:08→16:21)
[2017-11-26 08:26] VITALS: BP 175/77; PULSE 70; RESP 17; TEMP 97.5; O2SAT 97
[2017-11-26] MEDS: DIAZEPAM 5 MG TAB PO PRN ×2 (08:26→21:08)
[2017-11-26] MEDS: SODIUM CHLORIDE 0.9% FLUSH 10 ML FLUSH IV FLUSH SCH ×2 (08:54→21:09)
--- NOTE | 2017-11-26 11:38 | HHI.NSPN ---
(Luma Manning) Note Status Status: Progress Note (Luma Manning) Interval History Interval History 56-year-old lady with chronic history of neck and low back pain with associated headaches at left upper extremity radiculopathy. She underwent an anterior C5- 6 and C6-7 microdiscectomy with fusion week ago with subsequent resolution of her left upper extremity radicular symptoms. She relates the last few days she had some nausea and difficulty swallowing. She also suffers from significant anxiety and relates that she notices some dyspnea. No fevers or chills noted or any swelling or drainage from the cervical incision site. MRI scan cervical spine obtained reveals some prevertebral fluid collection. 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 currently appears anxious, confused getting up and trying to walk around the room without help. however she is oriented x 3. eventually calmed down and sat in chair to eat her breakfast. 11/26: room near [facility] station, reportedly takes off her collar despite being advise to keep on. final cultures still pending, so far fungal smear and staining are negative. Afebrile. (Luma Manning) Labs, Micro, & Vital Signs Results Date Time Temp Pulse Resp B/P (MAP) Pulse Ox O2 Delivery O2 Flow Rate FiO2 11/26/17 08:54 16 11/26/17 08:26 97.5 70 17 175/77 (109) 97 11/26/17 07:34 18 11/26/17 07:00 97 Room Air 11/26/17 04:47 97.2 71 18 127/59 (81) 93 11/26/17 03:00 100 Room Air 11/26/17 00:21 97.4 72 18 132/64 (86) 95 11/25/17 21:14 100 Room Air 11/25/17 20:19 98.0 71 18 158/71 (100) 98 11/25/17 17:01 97.9 71 20 146/74 (98) 97 11/25/17 16:00 98.2 62 22 145/68 (93) 100 11/25/17 15:00 65 11/25/17 12:00 98.7 68 14 153/73 (99) 100 11/25/17 12:00 69 Constitutional Vital Signs Date Time Temp Pulse Resp B/P (MAP) Pulse Ox O2 Delivery O2 Flow Rate FiO2 11/26/17 08:54 16 11/26/17 08:26 97.5 70 17 175/77 (109) 97 11/26/17 07:34 18 11/26/17 07:00 97 Room Air 11/26/17 04:47 97.2 71 18 127/59 (81) 93 11/26/17 03:00 100 Room Air 11/26/17 00:21 97.4 72 18 132/64 (86) 95 11/25/17 21:14 100 Room Air 11/25/17 20:19 98.0 71 18 158/71 (100) 98 11/25/17 17:01 97.9 71 20 146/74 (98) 97 11/25/17 16:00 98.2 62 22 145/68 (93) 100 11/25/17 15:00 65 11/25/17 12:00 98.7 68 14 153/73 (99) 100 11/25/17 12:00 69 (Luma Manning) Review of Systems Constitutional: DENIES: Fever, Chills (Luma Manning) Physical Exam Sleeping, did not arouse. Shah[place] collar in place. Wound with clean [place] dressing Motor: reports to move all four ext reports to ambulate unassisted (Luma Manning) Medications Current Medications Current Medications Medications (Trade) Dose Ordered Sig/Juan Carlos Route PRN Reason Start Time Stop Time Status Last Admin Dose Admin Sodium Chloride (NS Flush) 2 ml UNSCH PRN IV FLUSH FLUSH AFTER USING IV ACCESS 11/24/17 04:30 Lactated Ringer's 1,000 ml @ 30 mls/hr Q24H PRN IV SEE LABEL COMMENTS 11/24/17 12:00 11/27/17 11:59 Sodium Chloride 500 ml @ 30 mls/hr [id number] PRN IV SEE LABEL COMMENTS 11/24/17 12:00 11/27/17 11:59 Metoprolol Tartrate (Lopressor) 25 mg MANAGER TRAINING PRN PO SEE LABEL COMMENTS 11/24/17 12:00 11/27/17 11:59 Povidone Iodine (Betadine 5% Antisepsis Kit) 1 applic MANAGER TRAINING PRN EACH NARE SEE LABEL COMMENTS 11/24/17 12:00 11/27/17 11:59 Chlorhexidine Gluconate (Chlorhexidine 2% Cloth) 3 pack MANAGER TRAINING PRN TOPICAL SEE LABEL COMMENTS 11/24/17 12:00 11/27/17 11:59 Alprazolam (Xanax) 1 mg Q12HR PRN PO ANXIETY 11/24/17 14:30 11/26/17 00:35 Amitriptyline HCl (Elavil) 150 mg HS PO 11/24/17 21:00 11/25/17 21:02 Amlodipine Besylate (Norvasc) 10 mg DAILY PO 11/25/17 09:00 11/26/17 08:07 Aspirin (Aspirin Chew) 81 mg DAILY CHEW 11/25/17 09:00 11/26/17 08:06 Carvedilol (Coreg) 6.25 mg BID PO 11/24/17 21:00 11/26/17 08:07 Diazepam (Valium) 5 mg BID PRN PO ANXIETY 11/24/17 14:30 11/26/17 08:26 Escitalopram Oxalate (Lexapro) 20 mg DAILY PO 11/25/17 09:00 11/26/17 08:07 Estradiol (Estradiol) 2 mg DAILY PO 11/25/17 09:00 11/26/17 08:05 Pantoprazole Sodium (Protonix) 20 mg HS PO 11/24/17 21:00 11/25/17 21:02 Tizanidine HCl (Zanaflex) 4 mg DAILY PO 11/25/17 09:00 11/26/17 08:07 Zolpidem Tartrate (Ambien) 10 mg HS PRN PO INSOMNIA 11/24/17 14:30 11/26/17 00:36 Levothyroxine Sodium (Synthroid) 75 mcg DAILY@0600 PO 11/25/17 06:00 11/26/17 06:13 Pravastatin Sodium (Pravachol) 80 mg HS PO 11/24/17 21:00 11/25/17 21:02 Potassium Chloride/Sodium Chloride 1,000 ml @ 100 mls/hr Q10H IV 11/24/17 16:00 11/26/17 08:08 Sodium Chloride (NS Flush) 2 ml UNSCH PRN IV FLUSH FLUSH AFTER USING IV ACCESS 11/24/17 14:30 Sodium Chloride (NS Flush) 2 ml BID IV FLUSH 11/24/17 21:00 11/25/17 21:03 Al Hydrox/Mg Hydrox/Simethicone (Mag-Al Plus Susp Liq) 30 ml Q6H PRN PO DYSPEPSIA 11/24/17 14:30 Ondansetron HCl (Zofran Inj) 4 mg Q6H PRN IV PUSH NAUSEA OR VOMITING 11/24/17 14:30 Promethazine HCl (Phenergan Inj) 25 mg Q4H PRN IM NAUSEA OR VOMITING 11/24/17 14:30 Calcium Gluconate 1 gm/Sodium Chloride 110 ml @ 110 mls/hr UNSCH PRN IV SEE LABEL COMMENTS 11/24/17 14:30 Potassium Chloride 100 ml @ 50 mls/hr UNSCH PRN IV POTASSIUM LESS THAN 4 11/24/17 14:30 Magnesium Sulfate 2 gm/Sodium Chloride 104 ml @ 100 mls/hr UNSCH PRN IV MAGNESIUM LESS THAN 2 11/24/17 14:30 Acetaminophen/ Hydrocodone Bitart ([place] 10-325 Mg) 1 tab Q4H PRN PO PAIN SCALE 1 TO 5 11/24/17 14:30 11/26/17 06:24 Cyclobenzaprine HCl (Flexeril) 10 mg Q8H PRN PO MUSCLE SPASM 11/24/17 14:30 11/26/17 00:40 Labetalol HCl (Trandate Inj) 10 mg Q1H PRN IV PUSH SYS BP GREATER THAN 170 MMHG 11/24/17 14:30 11/25/17 10:15 Clonidine (Catapres) 0.1 mg Q6H PRN PO SYS BP GREATER THAN 170 MMHG 11/24/17 14:30 11/24/17 21:39 Acetaminophen (Tylenol) 650 mg Q4H PRN PO TEMPERATURE > 101.5 F 11/24/17 14:30 Menthol ([place] Tita) 1 lozenge UNSCH PRN BUCCAL SORE THROAT 11/24/17 14:30 Albuterol Sulfate (Albuterol Neb) 2.5 mg Q4HR NEB PRN NEB WHEEZING 11/24/17 14:30 Senna/Docusate Sodium (Masha-Colace) 1 tab BID PO 11/24/17 21:00 11/26/17 08:07 Magnesium Hydroxide (Milk Of Magnesia Liq) 30 ml Q12H PRN PO Mild constipation 11/24/17 14:30 Sennosides (Senokot) 17.2 mg Q12H PRN PO Moderate constipation 11/24/17 14:30 Bisacodyl (Dulcolax Supp) 10 mg DAILY PRN RECTAL SEVERE CONSITIPATION 11/24/17 14:30 Lactulose (Lactulose Liq) 30 ml DAILY PRN PO SEVERE CONSITIPATION 11/24/17 14:30 Cefazolin Sodium 500 mg/Sodium Chloride 100 ml @ 200 mls/hr Q8H IV 11/24/17 23:00 11/26/17 06:13 Dextrose (D50w (Vial) Inj) 50 ml UNSCH PRN IV PUSH HYPOGLYCEMIA-SEE COMMENTS 11/24/17 17:15 Glucagon (Glucagon Inj) 1 mg UNSCH PRN OTHER HYPOGLYCEMIA-SEE COMMENTS 11/24/17 17:15 Insulin Aspart (NovoLOG SUPPLEMENTAL SCALE) 1 Q6H SQ 11/24/17 18:00 11/26/17 01:18 Hydromorphone HCl (Dilaudid Pf Inj) 2 mg Q3H PRN IV PUSH BREAKTHROUGH PAIN >6 11/24/17 18:00 11/26/17 08:08 Labetalol HCl (Trandate Inj) 10 mg Q4H PRN IV PUSH SBP >165 11/25/17 01:30 (Luma Manning) Medical Decision Making MDM Remarks 56-year-old female underwent anterior C6-7 and C5-6 microdiscectomy with fusion with complaints of the difficulty swallowing and dyspnea. She had some prevertebral fluid collection questionable with this is hematoma versus serosanguineous fluid or infection. she underwent anterior cervical prevertebral fluid drainage and cultures to ensure no infection or hematoma with Dr. Thurman, so far gram stain and fungal stain negative history of anxiety, with intermittent confusion, noncompliance to brace wearing (Luma Manning) Plan Plan Remarks cont follow up final cultures dw nursing to ensure pt keeps collar on at all times, cont close monitoring cont current care cont therapy (Luma Manning) Attending Statement The exam, history, and the medical decision-making described in the above note were completed with the assistance of the mid-level provider. I reviewed and agree with the findings presented. I attest that I had a [id number] encounter with the patient on the same day, and personally performed and documented my assessment and findings in the medical record. (Guillermo Camacho MD) Luma Manning Nov 26, 2017 11:38 Guillermo Camacho MD Nov 26, 2017 19:37
[2017-11-26 12:51] VITALS: BP 107/55; PULSE 56; RESP 16; TEMP 97.5; O2SAT 93
[2017-11-26 16:53] VITALS: BP 134/60; PULSE 63; RESP 18; TEMP 98.2; O2SAT 95
[2017-11-26 20:29] VITALS: BP 125/59; PULSE 68; RESP 18; TEMP 98; O2SAT 98
[2017-11-26] MEDS: AMITRIPTYLINE HCL 75 MG TAB PO SCH (21:08)
[2017-11-26] MEDS: PRAVASTATIN SOD 80 MG TAB PO SCH (21:08)
[2017-11-26] MEDS: PANTOPRAZOLE SOD 20 MG DELAYED RELEASE TAB PO SCH (21:08)
[2017-11-27 00:53] VITALS: BP 138/65; PULSE 61; RESP 18; TEMP 97.4; O2SAT 93
[2017-11-27] MEDS: ALPRAZolam 1 MG TAB PO PRN (02:19)
[2017-11-27] MEDS: HYDROmorphone HCL PF 2 MG/ML VIAL IV PUSH PRN ×2 (02:20→08:21)
[2017-11-27] MEDS: ACETAMINOPHEN/HYDROcodone 325 MG/10 MG TAB PO PRN (04:28)
[2017-11-27 04:30] VITALS: BP 141/64; PULSE 69; RESP 18; TEMP 97.2; O2SAT 93
[2017-11-27] MEDS: NS + KCL 20 MEQ INJ 1,000 ML IV SCH (04:30)
[2017-11-27] MEDS: LEVOTHYROXINE SODIUM 75 MCG TAB PO SCH (05:44)
[2017-11-27] MEDS: INSULIN ASPART SUPPLEMENTAL SCALE SQ SCH ×2 (05:45→11:33)
[2017-11-27] MEDS: ceFAZolin INJ 500 MG in SODIUM CHLORIDE 0.9% INJ 100 ML IV SCH (05:50)
[2017-11-27 08:00] VITALS: BP 182/82; PULSE 71; RESP 18; TEMP 98.1; O2SAT 96
[2017-11-27] MEDS: DOCUSATE SODIUM 50 MG/SENNA 8.6 MG TAB PO SCH (08:20)
[2017-11-27] MEDS: ASPIRIN 81 MG CHEW TAB CHEW SCH (08:20)
[2017-11-27] MEDS: ESCITALOPRAM OXALATE 20 MG TAB PO SCH (08:20)
[2017-11-27] MEDS: CARVEDILOL 6.25 MG TAB PO SCH (08:20)
[2017-11-27] MEDS: ESTRADIOL 1 MG TAB PO SCH (08:20)
[2017-11-27] MEDS: SODIUM CHLORIDE 0.9% FLUSH 10 ML FLUSH IV FLUSH SCH (08:21)
--- NOTE | 2017-11-27 10:03 | HHI.NSPN ---
History Chief Complaint: Incisional and neck pain. Interval History 56-year-old lady with chronic history of neck and low back pain with associated headaches at left upper extremity radiculopathy. She underwent an anterior C5- 6 and C6-7 microdiscectomy with fusion week ago with subsequent resolution of her left upper extremity radicular symptoms. She relates the last few days she had some nausea and difficulty swallowing. She also suffers from significant anxiety and relates that she notices some dyspnea. No fevers or chills noted or any swelling or drainage from the cervical incision site. MRI scan cervical spine obtained reveals some prevertebral fluid collection. 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 currently appears anxious, confused getting up and trying to walk around the room without help. however she is oriented x 3. eventually calmed down and sat in chair to eat her breakfast. 2/: room near [facility] station, reportedly takes off her collar despite being advise to keep on. final cultures still pending, so far fungal smear and staining are negative. Afebrile. 2: Pt awakens to voice. Complains of chronic neck pain. Pt wants to go home. No radiculopathy or paresthesias in UEs. Pt continues to be noncompliant with her cervical collar and she was again told to keep her collar on at all times. Review of Systems General: Negative for: fever, chills, insomnia Respiratory: Negative for: shortness of breath, cough, sputum Cardiovascular: Negative for: chest pain Gastrointestinal: Negative for: nausea, vomitting, diarrhea, constipation Exam Results Vital Signs Date Time Temp Pulse Resp B/P (MAP) Pulse Ox O2 Delivery O2 Flow Rate FiO2 11/27/17 08:32 Room Air 11/27/17 08:00 98.1 71 18 182/82 (115) 96 11/24/17 19:00 2.00 Physical Examination General: Pt resting comfortably in bed in NAD. Resp: CTA bilaterally Heart: NSR no murmurs Abd: Soft positive bs Skin: No signs of infection or complication. New bandage placed. Muscle: Moves all 4 extremities well, mild generalized weakness in UEs. [place] cervical collar re applied. Neuro: Pt awakens to voice. Follows commands well. Speech clear and appropriate. Asks appropriate questions. Lab, Micro, Other Results Last Impressions Cervical Spine MRI 11/24/17 0000 Signed Impressions: Service Date/Time: Friday, November 24, 2017 03:09 - CONCLUSION: There is a large prevertebral rim enhancing fluid collection as described above with possible small foci of air, and an abscess can have this appearance. There is mild canal narrowing at C5-6 and C6-7 with mild right foraminal narrowing present at these levels. Please see above discussion. Chase Lama MD Medical Decision Making Impression and Plan A: 56-year-old female underwent anterior C6-7 and C5-6 microdiscectomy with fusion with complaints of the difficulty swallowing and dyspnea. She had some prevertebral fluid collection questionable with this is hematoma versus serosanguineous fluid or infection. she underwent anterior cervical prevertebral fluid drainage and cultures to ensure no infection or hematoma with Dr. Thurman, Final cultures negative for bacterial infection P: Discharge pt home Continue with incisional care at home Follow up as previously scheduled. Hawk Vides Nov 27, 2017 10:03 am
[2017-11-27] MEDS ORDERED: PLAV75TA29 PO (10:28)
[2017-11-27 12:00] VITALS: BP 143/70; PULSE 56; RESP 18; TEMP 98.6; O2SAT 96
== END 2017-11-27 12:26 | disposition home or self-care (01) | DRG 908 ==
LOC: NEPE 00:52 → NEDA 08:27 → N03A 15:53 → N05A 11-25 16:27
PROVIDERS: ADMIT Neurological Surgery; ATTEND Neurological Surgery
PROC: 0W9600Z Drainage of Neck with Drainage Device, Open Approach (ICD-10-PCS; principal; 2017-11-24 12:51)
DX: M96.842 Postprocedural seroma of a musculoskeletal structure following a musculoskeletal system procedure (principal); F11.20 Opioid dependence, uncomplicated; I10 Essential (primary) hypertension; Z98.1 Arthrodesis status; R41.0 Disorientation, unspecified; G89.4 Chronic pain syndrome; I25.10 Atherosclerotic heart disease of native coronary artery without angina pectoris; Z95.1 Presence of aortocoronary bypass graft; E11.9 Type 2 diabetes mellitus without complications; Z79.84 Long term (current) use of oral hypoglycemic drugs; F41.9 Anxiety disorder, unspecified; E07.9 Disorder of thyroid, unspecified; E78.00 Pure hypercholesterolemia, unspecified; Z91.19 Patient's noncompliance with other medical treatment and regimen
CPT/HCPCS: 36415; 72156; 80053; 82948; 83605; 85025; 85610; 85652; 85730; 86140; 87015; 87070; 87102; 87116; 87205; 87206; 94150; 96361; 96374; A9579; J0690; J1100; J1170; J1815; J2250; J2405; J3370; J3480; J7030; J7050; J7120

== ENCOUNTER 2017-12-06 02:07 | Emergency (ER) | payer MEDICARE, OTHER ==
[~2017-12-06 02:07] MED LIST changes: +FURO1TAB62 PO
[2017-12-06 02:09] VITALS: BP 140/65; PULSE 82; RESP 16; TEMP 98.5; O2SAT 94
--- NOTE | 2017-12-06 02:59 | PD ---
HPI Chief Complaint: Skin Problem Time Seen by Provider: 02:55 Travel History International Travel<30 days: No Contact w/Intl Traveler<30days: No Traveled to known affect area: No History of Present Illness HPI The patient is a 57 year old female who presents to the [facility] emergency department with a history of 2 days ago when changing her dressing falling off some of the skin near a postoperative wound when the tape adhered to tightly to her skin. The patient reports that since then the area has been tender and slightly red. She denies having any drainage. She denies having any swelling to her neck at the site of postoperative incision. The patient's recent history is complicated by on November 17 undergoing a cervical spine fusion by . Subsequent to that the patient developed swelling in her neck and was admitted for another surgery on November 24 during which a seroma was drained and cultures were done. Those cultures were negative. The patient reports that since having the surgery she continues to have pain, mainly involving her right arm. She reports the pain also radiates around into her chest, however she did have a cardiac catheterization done related to this chest pain in September the operatively which was negative for any recurrent coronary artery disease. The patient reports that she does have a history of coronary artery disease and has had a four-vessel bypass in the past and approximately a year ago had a stent placed. The patient denies having any recent fevers, cough or congestion, shortness of breath, abdominal pain, vomiting, diarrhea, urinary symptoms, weakness in her legs, loss of bowel or bladder control, or weakness in her upper extremities. She reports having tingling sensations in the right arm. The patient is concerned about the pain in her right arm and tingling sensations in her right arm as she accidentally forgot to wear her cervical collar to bed on a couple of occasions. [facility] Past Medical History Narrative Medical The patient's past medical history is significant for coronary artery disease, history of hypertension, hyperlipidemia, history of nonalcohol related cirrhosis of the liver, diabetes mellitus, degenerative disc disease, history of a pulmonary embolism in 2011, history of migraine headaches, hypothyroid disorder per Hx Anticoagulant Therapy: Yes (Plavix) Arthritis: Yes Asthma: No Anxiety: Yes Depression: Yes Heart Rhythm Problems: No Cancer: No Cardiac Catheterization: Yes Cardiovascular Problems: Yes (HTN, CAD, CABGx4) High Cholesterol: Yes Chest Pain: Yes Congestive Heart Failure: No Cirrhosis: Yes COPD: No Cerebrovascular Accident: No Coronary Artery Disease: Yes Diabetes: Yes Patient Takes Glucophage: Yes Diminished Hearing: No Endocrine: Yes (NON ALCOHOLIC CIRRHOSIS OF LIVER) Genitourinary: No Headaches: Yes Hepatitis: No Hiatal Hernia: No Hypertension: Yes Immune Disorder: No Kidney Stones: No Musculoskeletal: Yes Neurologic: Yes (PAIN AND NUMBNESS, RUPTURED AND BULGING DISCS) Psychiatric: No Reproductive: No Respiratory: Yes (PE-2011) Migraines: Yes Renal Failure: No Seizures: No Sleep Apnea: No Thyroid Disease: Yes Menopausal: Yes Past Surgical History Narrative Surgical The patient's past surgical history is significant for cholecystectomy, coronary artery bypass grafting of 4 vessels, cardiac catheterization with stent placement, partial thyroidectomy, hysterectomy, tonsillectomy. Abdominal Surgery: Yes (GALLBLADDER) AICD: No Arteriovenous Shunt: No Body Medical Devices: [address] Cardiac Surgery: Yes (OPEN HEART) Cholecystectomy: Yes Coronary Artery Bypass Graft: Yes (4 VESSELS-2011) Coronary Stent: Yes (X2-2011) Ear Surgery: No Endocrine Surgery: Yes (THRYROID) Eye Surgery: No Gynecologic Surgery: Yes (HYSTERECTOMY) Hysterectomy: Yes Insulin Pump: No Joint Replacement: No Oral Surgery: No Pacemaker: No Tonsillectomy: Yes (1971) Other Surgery: Yes Social History Alcohol Use: No Tobacco Use: No Substance Use: No Allergies-Medications (Allergen,Severity, Reaction): Coded Allergies: butorphanol (Verified Allergy, Severe, Hallucinations, 12/06/17) codeine (Verified Allergy, Severe, Hives, 12/06/17) fentanyl (Verified Allergy, Severe, Confusion, 12/06/17) morphine (Verified Allergy, Severe, Hallucinations, 12/06/17) Reported Meds & Prescriptions Reported Meds & Active Scripts Active Plavix (Clopidogrel Bisulfate) 75 Mg Tab 75 Mg PO DAILY Restart Plavix on 11/28/17 Xanax (Alprazolam) 1 Mg Tab 1 Mg PO Q12HR PRN Dilaudid (Hydromorphone HCl) 2 Mg Tab 2 Mg PO Q8H PRN Reported Lasix (Furosemide) 20 Mg Tab 20 Mg PO EVERY OTHER DAY Simvastatin 40 Mg Tab 40 Mg PO HS Amitriptyline (Amitriptyline HCl) 150 Mg Tab 150 Mg PO HS Victoza Inj (Liraglutide Inj) 18 Mg/3 Ml Pen 1.8 Mg SQ HS Aspirin 81 Mg Chew 81 Mg CHEW DAILY Tizanidine (Tizanidine HCl) 4 Mg Cap 4 Mg PO DAILY Valium (Diazepam) 5 Mg Tab 5 Mg PO BID PRN Ambien (Zolpidem Tartrate) 10 Mg Tab 10 Mg PO HS PRN Lexapro (Escitalopram Oxalate) 20 Mg Tab 20 Mg PO DAILY Protonix (Pantoprazole Sodium) 20 Mg Tab 20 Mg PO HS Amlodipine (Amlodipine Besylate) 10 Mg Tab 10 Mg PO DAILY Coreg (Carvedilol) 6.25 Mg Tab 6.25 Mg PO BID Hydrocodone-Acetaminophen 10-325 mg Tab 1 Tab PO Q4H PRN Synthroid (Levothyroxine Sodium) 175 Mcg Tab 175 Mcg PO DAILY Estrace (Estradiol) 2 Mg Tab 2 Mg PO DAILY Januvia (Sitagliptin Phosphate) 25 Mg Tab 25 Mg PO DAILY Review of Systems Except as stated in HPI: all other systems reviewed are Neg General / Constitutional: No: Fever Eyes: No: Visual changes HENT: Positive: Neck Pain, No: Headaches Cardiovascular: Positive: Chest Pain or Discomfort Respiratory: No: Shortness of Breath Gastrointestinal: No: Abdominal Pain Genitourinary: No: Dysuria Musculoskeletal: No: Pain Skin: No Rash Neurologic: Positive: Paresthesia, Sensory Disturbance, No: Weakness, Focal Abnormalities, Change in Mentation, Slurred Speech Psychiatric: No: Depression Endocrine: No: Polydipsia Hematologic/Lymphatic: No: Easy Bruising Physical Exam Narrative General: The patient is a well-developed well-nourished female in no acute distress, drowsy on arrival, however she reports that she took a Dilaudid tablet for pain at approximately midnight Head and Neck exam: Head is normocephalic atraumatic. Eyes: EOMI, pupils are equal round and reactive to light. Nose: Midline septum with pink mucous membranes Mouth: Dentition unremarkable. Moist mucus membranes. Posterior oropharynx is not erythematous. No tonsillar hypertrophy. Uvula midline. Airway patent. Neck: No palpable lymphadenopathy. Hammond collar is in place. This is gently removed and the patient is noted to have Steri-Strips over a wound on the left side of her neck. There is no drainage. There is no swelling. There is no significant tenderness on palpation. The patient has a small approximately one half of the centimeter area of superficial erythema from skin being pulled from tape adherence 2 days ago. Cardiovascular: Regular rate and rhythm without murmurs, gallops, or rubs. Lungs: Clear to auscultation bilaterally. No wheezes, rhonchi, or rales. Abdomen: Soft, without tenderness to palpation in all 4 quadrants of the abdomen. No guarding, rebound, or rigidity. Normal bowel sounds are audible. No tenderness on palpation of McBurney's point. Extremities: No clubbing, cyanosis, or edema. 2+ pulses in all 4 extremities. No calf tenderness on palpation. Back: No spinous process tenderness to palpation. No costovertebral angle tenderness to palpation. Neurologic Exam: Cranial nerves 2-12 were intact on exam. Strength is 5/5 in all 4 extremities. No sensory deficits noted. Skin Exam: No rash noted. Intact skin that is warm and dry. Data Data Last Documented VS Vital Signs Date Time Temp Pulse Resp B/P (MAP) Pulse Ox O2 Delivery O2 Flow Rate FiO2 12/06/17 04:18 85 18 148/83 (104) 97 Room Air 12/06/17 02:09 98.5 Orders Orders Electrocardiogram (12/06/17 03:29) Complete Blood Count With Diff (12/06/17 03:29) Comprehensive Metabolic Panel (12/06/17 03:29) Creatine Kinase (Cpk) (12/06/17 03:29) Ckmb (Isoenzyme) Profile (12/06/17 03:29) Troponin I (12/06/17 03:29) Prothrombin Time / Inr (Pt) (12/06/17 03:29) Act Partial Throm Time (Ptt) (12/06/17 03:29) C-Reactive Protein (Crp) (12/06/17 03:29) Magnesium (Mg) (12/06/17 03:29) Chest, Single Ap (12/06/17 03:29) Iv Access Insert/Monitor (12/06/17 03:29) Ecg Monitoring (12/06/17 03:29) Oximetry (12/06/17 03:29) Drug Screen, Random Urine (12/06/17 03:29) Alcohol (Ethanol) (12/06/17 03:29) Ct Cerv Spine W/O Contrast (12/06/17 03:29) CKMB (12/06/17 03:38) CKMB% (12/06/17 03:38) Ed Discharge Order (12/06/17 05:20) Labs Laboratory Tests Test 12/06/17 03:38 White Blood Count 8.2 TH/MM3 Red Blood Count 4.21 MIL/MM3 Hemoglobin 11.2 GM/DL Hematocrit 33.9 % Mean Corpuscular Volume 80.4 FL Mean Corpuscular Hemoglobin 26.6 PG Mean Corpuscular Hemoglobin Concent 33.1 % Red Cell Distribution Width 14.6 % Platelet Count 189 TH/MM3 Mean Platelet Volume 8.9 FL Neutrophils (%) (Auto) 54.0 % Lymphocytes (%) (Auto) 35.2 % Monocytes (%) (Auto) 8.6 % Eosinophils (%) (Auto) 1.5 % Basophils (%) (Auto) 0.7 % Neutrophils # (Auto) 4.4 TH/MM3 Lymphocytes # (Auto) 2.9 TH/MM3 Monocytes # (Auto) 0.7 TH/MM3 Eosinophils # (Auto) 0.1 TH/MM3 Basophils # (Auto) 0.1 TH/MM3 CBC Comment DIFF FINAL Differential Comment Prothrombin Time 10.9 SEC Prothromb Time International Ratio 1.1 RATIO Activated Partial Thromboplast Time 26.8 SEC Blood Urea Nitrogen 12 MG/DL Creatinine 1.14 MG/DL Random Glucose 114 MG/DL Total Protein 7.2 GM/DL Albumin 3.2 GM/DL Calcium Level 8.1 MG/DL Magnesium Level 1.8 MG/DL Alkaline Phosphatase 140 U/L Aspartate Amino Transf (AST/SGOT) 41 U/L Alanine Aminotransferase (ALT/SGPT) 28 U/L Total Bilirubin 0.3 MG/DL Sodium Level 137 MEQ/L Potassium Level 3.9 MEQ/L Chloride Level 103 MEQ/L Carbon Dioxide Level 24.6 MEQ/L Anion Gap 9 MEQ/L Estimat Glomerular Filtration Rate 49 ML/MIN Total Creatine Kinase 302 U/L Creatine Kinase MB 1.2 NG/ML Creatine Kinase MB % 0.4 % Troponin I LESS THAN 0.02 NG/ML C-Reactive Protein 1.32 MG/DL Ethyl Alcohol Level LESS THAN 3 MG/DL MDM Medical Decision Making Medical Screen Exam Complete: Yes Emergency Medical Condition: Yes Medical Record Reviewed: Yes Interpretation(s) Last Impressions Chest X-Ray 12/06/17 0049 Signed Impressions: Service Date/Time: Wednesday, December 06, 2017 04:14 - CONCLUSION: Basilar airspace disease. Chase Lama MD Cervical Spine CT 12/06/17 0329 Signed Impressions: Service Date/Time: Wednesday, December 06, 2017 03:43 - CONCLUSION: Degenerative changes and postsurgical changes are noted. Chase Lama MD Differential Diagnosis Migration of hardware, versus recurrent seroma, versus postoperative infection, versus acute coronary syndrome. Narrative Course During the course of the patient's emergency department visit, the patient's history, examination, and differential diagnosis were reviewed with the patient. The patient was placed on a engineer gas pumping station with oximetry and frequent blood pressure monitoring. The patient had IV access obtained and blood work sent for analysis. The patient's laboratory studies were reviewed and remarkable for A white count of 8.2, hemoglobin 11.2, platelets 189 with 8.6 monocytes. CMP is remarkable for creatinine of 1.14, glucose 114, calcium 8.1, AST 41, alk phos 140, CPK 302 , MB percent 0.4, troponin I less than 0.02, C-reactive protein 1.32, albumin 3.2. PT 10.9, PTT 26.8 Radiology studies were reviewed and remarkable for a chest x-ray that shows basilar airspace disease/atelectasis. CT scan of the C-spine shows degenerative changes and postsurgical changes with neural foraminal narrowing worse on the right compared to the left from arthritis. The patient's symptoms are consistent with a cervical radiculopathy. The patient was instructed regarding the importance of following up with Dr. Thurman in the next couple of days for reexamination regarding her recent surgery. The patient is currently taking pain medication at home. The patient was instructed to continue her current pain management regimen. The patient is resting comfortably and feels better, is alert and in no distress. The patient's results and examination findings were discussed with the patient. The repeat examination is unremarkable and benign. The history, exam, diagnostic testing, and current condition do not suggest any significant pathology to warrant further testing, continued ED treatment, admission, or surgical evaluation at this point. The vital signs have been stable. The patient does not have uncontrollable pain, intractable vomiting, or other significant symptoms. The patient's condition is stable and appropriate for discharge. The patient will pursue further outpatient evaluation with a primary care physician or other designated or consulting physician as indicated in the discharge instructions. The patient expressed understanding and was agreeable with this plan. Diagnosis Primary Impression: Cervical radiculopathy Referrals: Wilbur Thurman MD 2 days Patient Instructions: Cervical Radiculopathy (ED), General Instructions Med/Other Pt SpecificInfo: No Change to Meds Disposition: 01 DISCHARGE HOME Condition: Stable Pili Conte MD Dec 06, 2017 02:59
[2017-12-06 03:57] LABS: AUTOMATED NEUTROPHIL # 4.4 TH/MM3 (1.8-7.7); BASOPHIL # 0.1 TH/MM3 (0-0.2); BASOPHIL % 0.7 % (0.0-2.0); EOSINOPHIL # 0.1 TH/MM3 (0-0.4); EOSINOPHIL % 1.5 % (0.0-4.0); HEMATOCRIT 33.9 % (35.0-46.0); HEMOGLOBIN 11.2 GM/DL (11.6-15.3); LYMPH % 35.2 % (9.0-44.0); LYMPHOCYTE # 2.9 TH/MM3 (1.0-4.8); MEAN CELL VOLUME 80.4 FL (80.0-100.0); MEAN CORPUSCULAR HEMOGLOBIN 26.6 PG (27.0-34.0); MEAN CORPUSCULAR HGB CONC 33.1 % (32.0-36.0); MEAN PLATELET VOLUME 8.9 FL (7.0-11.0); MONO % 8.6 % (0.0-8.0); MONOCYTE # 0.7 TH/MM3 (0-0.9); PLATELET COUNT 189 TH/MM3 (150-450); RED BLOOD COUNT 4.21 MIL/MM3 (4.00-5.30); RED CELL DISTRIBUTION WIDTH 14.6 % (11.6-17.2); WHITE BLOOD COUNT 8.2 TH/MM3 (4.0-11.0)
[2017-12-06 04:08] LABS: ALBUMIN 3.2 GM/DL (3.4-5.0); ALT (GPT) 28 U/L (10-53); AST (GOT) 41 U/L (15-37); BICARBONATE 24.6 MEQ/L (21.0-32.0); BLOOD UREA NITROGEN 12 MG/DL (7-18); C-REACTIVE PROTEIN 1.32 MG/DL (0.00-0.30); CALCIUM 8.1 MG/DL (8.5-10.1); CHLORIDE 103 MEQ/L (98-107); CREATININE 1.14 MG/DL (0.50-1.00); GLOMERULAR FILTRATION RATE 49 ML/MIN (>89); GLUCOSE,RANDOM 114 MG/DL (74-106); MAGNESIUM 1.8 MG/DL (1.5-2.5); SODIUM (NA) 137 MEQ/L (136-145)
--- NOTE | 2017-12-06 04:09 | RADRPT ---
EXAM DATE/TIME: 12/06/2017 03:43 [facility] COMPARISON: MRI CERVICAL SPINE W & W/O CONTRAST, November 24, 2017, 3:09. CT CERVICAL SPINE W/O CONTRAST, June 21, 2017, 8:40. INDICATIONS : Neck pain post surgery 2 weeks ago. RADIATION DOSE: 21.26 CTDIvol (mGy) MEDICAL HISTORY : Hypertension. Diabetes mellitus type 2. SURGICAL HISTORY : Fusion, cervical. ENCOUNTER: Initial ACUITY: 2 weeks PAIN SCALE: 6/10 LOCATION: neck TECHNIQUE: Volumetric scanning of the cervical spine was performed. Multiplanar reconstructions in the sagittal, coronal and oblique axial planes were performed. Using automated exposure control and adjustment o f the mA and/or kV according to patient size, radiation dose was kept as low as reasonably achievable to obtain optimal diagnostic quality images. DICOM format image data is available electronically f or review and comparison. FINDINGS: Patient is status post anterior cervical discectomy and intervertebral fusion and hardware placement at C5-6 and C6-7. Alignment is normal. No prevertebral soft tissue swelling or compression deformity. Odontoid process is intact. Uncovertebral hypertrophy at C5-6 and C6-7. At C5-6 uncovertebral hypert rophy results in severe right greater than left foraminal narrowing. Moderate foraminal narrowing at C6-7 secondary to uncovertebral hypertrophy. At C4-5, a disc bulge is noted eccentric to the right wi th mild right foraminal encroachment. CONCLUSION: Degenerative changes and postsurgical changes are noted. Chase Lama MD on December 06, 2017 at 4:02 Board Certified Radiologist. This report was verified electronically.
[2017-12-06 04:11] LABS: ALKALINE PHOSPHATASE 140 U/L (45-117); TOTAL BILIRUBIN ADULT 0.3 MG/DL (0.2-1.0); TOTAL PROTEIN 7.2 GM/DL (6.4-8.2); TROPONIN I LESS THAN 0.02 NG/ML (0.02-0.05)
[2017-12-06 04:14] LABS: INTERNATIONAL NORMALIZED RATIO 1.1 RATIO; PROTHROMBIN TIME - PATIENT 10.9 SEC (9.8-11.6)
[2017-12-06 04:18] VITALS: BP 148/83; PULSE 85; RESP 18; O2SAT 97
--- NOTE | 2017-12-06 04:34 | RADRPT ---
EXAM DATE/TIME: 12/06/2017 04:14 [facility] COMPARISON: CHEST SINGLE AP, October 19, 2017, 0:56. INDICATIONS : Chest pain. MEDICAL HISTORY : Hypertension. Diabetes mellitus type 2. SURGICAL HISTORY : Fusion, cervical. CABG. ENCOUNTER: Initial ACUITY: 1 day PAIN SCORE: 7/10 LOCATION: Bilateral chest FINDINGS: Sternotomy wires and cardiomegaly. Coronary artery stents. Streaky airspace disease at both lung base s left greater than right. CONCLUSION: Basilar airspace disease. Chase Lama MD on December 06, 2017 at 4:31 Board Certified Radiologist. This report was verified electronically.
[2017-12-06] MEDS ORDERED: HYDR-3516 PO (05:42)
--- NOTE | 2017-12-06 21:12 | EKG ---
Date Performed: 12/06/2017 Time Performed: 04:05:00 PTAGE: 57 years EKG: Sinus rhythm INCOMPLETE RIGHT BUNDLE BRANCH BLOCK NONSPECIFIC T-WAVE ABNORMALITY BORDERLINE ECG PREVIOUS TRACING : 10/19/2017 00.19 Since the prior tracing, there has been no significant reardon DOCTOR: Sandeep Schmid Interpretating Date/Time 12/06/2017 21:10:37
== END 2017-12-06 05:48 | disposition home or self-care (01) ==
LOC: NEPE 02:07
DX: M54.12 Radiculopathy, cervical region (principal); R94.31 Abnormal electrocardiogram [ECG] [EKG]; I25.10 Atherosclerotic heart disease of native coronary artery without angina pectoris; I10 Essential (primary) hypertension; E78.5 Hyperlipidemia, unspecified; K74.60 Unspecified cirrhosis of liver; E11.9 Type 2 diabetes mellitus without complications; E03.9 Hypothyroidism, unspecified; Z79.899 Other long term (current) drug therapy
CPT/HCPCS: 71045; 72125; 80053; 80307; 82550; 82552; 83735; 84484; 85025; 85610; 85730; 86140; 93005; 99285

== ENCOUNTER 2017-12-25 17:06 | Emergency (ER) | payer OTHER ==
[~2017-12-25 17:06] MED LIST changes: +HYDR-3516 PO
[2017-12-25 17:33] VITALS: BP 159/72; PULSE 69; RESP 15; TEMP 97.3; O2SAT 95
--- NOTE | 2017-12-25 18:27 | RADRPT ---
EXAM DATE/TIME: 12/25/2017 17:53 [facility] COMPARISON: No previous studies available for comparison. INDICATIONS : Right shoulder pain after fall. MEDICAL HISTORY : None. SURGICAL HISTORY : Recent cervical fusion. ENCOUNTER: Initial ACUITY: 2 days PAIN SCORE: 9/10 LOCATION: Right posterior shoulder. FINDINGS: Multiple view examination of the right shoulder demonstrates no evidence of fracture or dislocation. The glenohumeral and acromioclavicular joints are maintained. Moderate degenerative changes in the a.c. joint. There is normal range of motion between internal and external rotation. The visualized right upper ribs are intact. Bony mineralization is normal. CONCLUSION: No evidence of fracture or dislocation. Elie Anthony MD on December 25, 2017 at 18:25 Board Certified Radiologist. This report was verified electronically.
--- NOTE | 2017-12-25 18:37 | RADRPT ---
EXAM DATE/TIME: 12/25/2017 18:01 [facility] COMPARISON: CT CERVICAL SPINE W/O CONTRAST, December 06, 2017, 3:43. INDICATIONS : Patient fell, severe neck and right shoulder pain with numbness in right arm. RADIATION DOSE: 23.47 CTDIvol (mGy) MEDICAL HISTORY : Cardiovascular disease. Diabetes mellitus type 1. SURGICAL HISTORY : C spine surgery ENCOUNTER: Initial ACUITY: 2 days PAIN SCALE: 8/10 LOCATION: neck TECHNIQUE: Volumetric scanning of the cervical spine was performed. Multiplanar reconstructions in the sagittal, coronal and oblique axial planes were performed. Using automated exposure control and adjustment o f the mA and/or kV according to patient size, radiation dose was kept as low as reasonably achievable to obtain optimal diagnostic quality images. DICOM format image data is available electronically f or review and comparison. FINDINGS: There is straightening of the cervical lordosis, similar to prior. A cervical plate at C5-6-7 with m aintenance of the interspace configuration. The atlantoaxial articulation is intact. The posterior elements are in normal alignment without evidence of locked or perched facets. C2-C3: No fracture seen. The neural foramen are patent. C3-C4: No fracture seen. The neural foramen are patent. C4-C5: Right paracentral epidural impression suggesting disc bulging or protrusion is similar to prior CT . No fracture seen. The neural foramen are patent. C5-C6: No fracture seen. The neural foramen are patent. C6-C7: No fracture seen. The neural foramen are patent. C7-T1: No fracture seen. The neural foramen are patent. CONCLUSION: 1. No evidence of compressive or spondylolisthesis. Intact alignment at the ACF levels C5-7. 2. Right epidural impression at C4-5 suggesting disc bulge or protrusion, stable from 12/06/17. Elie Anthony MD on December 25, 2017 at 18:30 Board Certified Radiologist. This report was verified electronically.
[2017-12-25 23:18] VITALS: BP 226/91
[2017-12-26] MEDS ORDERED: KETOROLAC TROMETHAMINE 60 MG/2 ML (IM) VIAL IM ONE (00:45)
[2017-12-26 00:48] VITALS: BP 231/102; PULSE 74; RESP 17; O2SAT 98
[2017-12-26] MEDS ORDERED: HYDR-3516 PO (01:00)
--- NOTE | 2017-12-26 01:05 | PD ---
HPI Chief Complaint: Fall Time Seen by Provider: 00:19 Travel History International Travel<30 days: No Contact w/Intl Traveler<30days: No Traveled to known affect area: No History of Present Illness HPI The patient is a 57 year old female who presents to the [facility] emergency department with a history of reportedly falling twice since Monday. The patient reports that on Monday he was getting off of the commode when she lost her balance and landed on her right hand near the bathtub. The patient reports that she then lost her balance again today when she was raising upper arms to fix her hair and turning at the same time when she lost her balance and fell backwards. The patient reports that she is recently postop a proximally 5 weeks out from having a cervical spine fusion done on November [address] Thurman. That surgery was complicated by a seroma collection that was drained in the OR on November 24. The patient reports that she has been doing well postop since then until these 2 falls. She reports that she now has right- sided neck pain, right shoulder pain, tingling in the right arm. The patient denies having any chest pain, chest pressure, or shortness of breath. The patient reports that she had been on [place] for pain, however she is currently out. She reports that she has been on Flexeril and did take one earlier today for this discomfort. She denies having any loss of bowel or bladder control. She denies having any recent fevers, chills, cough or congestion. On review of systems otherwise, she denies having any abdominal pain, vomiting, diarrhea, urinary symptoms, one-sided weakness, slurred speech, facial droop, difficulty with word finding ability, or vision changes. She has been moving her bowels regularly. She denies having any saddle anesthesia. [facility] Past Medical History Narrative Medical The patient's past medical history is significant for coronary artery disease, hypertension, hyperlipidemia nonalcohol related cirrhosis of the liver, diabetes mellitus, degenerative disc disease, history of a pulmonary embolism in 2011, history of migraine headaches, and a history of hypothyroid disorder. Hx Anticoagulant Therapy: Yes (Plavix) Arthritis: Yes Asthma: No Anxiety: Yes Depression: Yes Heart Rhythm Problems: No Cancer: No Cardiac Catheterization: Yes Cardiovascular Problems: Yes (HTN, CAD, CABGx4) High Cholesterol: Yes Chest Pain: Yes Congestive Heart Failure: No Cirrhosis: Yes COPD: No Cerebrovascular Accident: No Coronary Artery Disease: Yes Diabetes: Yes Patient Takes Glucophage: No Diminished Hearing: No Endocrine: Yes (NON ALCOHOLIC CIRRHOSIS OF LIVER) Genitourinary: No Headaches: Yes Hepatitis: No Hiatal Hernia: No Hypertension: Yes Immune Disorder: No Kidney Stones: No Musculoskeletal: Yes Neurologic: Yes (PAIN AND NUMBNESS, RUPTURED AND BULGING DISCS) Psychiatric: No Reproductive: No Respiratory: Yes (-2011) Immunizations Current: Yes Migraines: Yes Renal Failure: No Seizures: No Sleep Apnea: No Thyroid Disease: Yes Tetanus Vaccination: < 5 Years Influenza Vaccination: Yes Menopausal: Yes : 2 Para: 1 Miscarriage: 1 Past Surgical History Narrative Surgical The patient's past surgical history is significant for a cervical fusion done on November 17, seroma drainage on November 24 from her neck, cholecystectomy, coronary artery bypass grafting of 4 vessels, cardiac catheterization with stent placement, partial thyroidectomy, hysterectomy, tonsillectomy. Abdominal Surgery: Yes (GALLBLADDER) AICD: No Arteriovenous Shunt: No Body Medical Devices: [address] Cardiac Surgery: Yes (OPEN HEART) Cholecystectomy: Yes Coronary Artery Bypass Graft: Yes (4 VESSELS-2011) Coronary Stent: Yes (X2-2011) Ear Surgery: No Endocrine Surgery: Yes (THRYROID) Eye Surgery: No Gynecologic Surgery: Yes (HYSTERECTOMY) Hysterectomy: Yes Insulin Pump: No Joint Replacement: No Oral Surgery: No Pacemaker: No Tonsillectomy: Yes (1971) Other Surgery: Yes Social History Alcohol Use: No Tobacco Use: No Substance Use: No Allergies-Medications (Allergen,Severity, Reaction): Coded Allergies: butorphanol (Verified Allergy, Severe, Hallucinations, 12/06/17) codeine (Verified Allergy, Severe, Hives, 12/06/17) fentanyl (Verified Allergy, Severe, Confusion, 12/06/17) morphine (Verified Allergy, Severe, Hallucinations, 12/06/17) Reported Meds & Prescriptions Reported Meds & Active Scripts Active Hydrocodone-Acetaminophen 5-325 mg Tab 1 Tab PO Q6H PRN Plavix (Clopidogrel Bisulfate) 75 Mg Tab 75 Mg PO DAILY Restart Plavix on 11/28/17 Xanax (Alprazolam) 1 Mg Tab 1 Mg PO Q12HR PRN Dilaudid (Hydromorphone HCl) 2 Mg Tab 2 Mg PO Q8H PRN Reported Lasix (Furosemide) 20 Mg Tab 20 Mg PO EVERY OTHER DAY Simvastatin 40 Mg Tab 40 Mg PO HS Amitriptyline (Amitriptyline HCl) 150 Mg Tab 150 Mg PO HS Victoza Inj (Liraglutide Inj) 18 Mg/3 Ml Pen 1.8 Mg SQ HS Aspirin 81 Mg Chew 81 Mg CHEW DAILY Tizanidine (Tizanidine HCl) 4 Mg Cap 4 Mg PO DAILY Valium (Diazepam) 5 Mg Tab 5 Mg PO BID PRN Ambien (Zolpidem Tartrate) 10 Mg Tab 10 Mg PO HS PRN Lexapro (Escitalopram Oxalate) 20 Mg Tab 20 Mg PO DAILY Protonix (Pantoprazole Sodium) 20 Mg Tab 20 Mg PO HS Amlodipine (Amlodipine Besylate) 10 Mg Tab 10 Mg PO DAILY Coreg (Carvedilol) 6.25 Mg Tab 6.25 Mg PO BID Hydrocodone-Acetaminophen 10-325 mg Tab 1 Tab PO Q4H PRN Synthroid (Levothyroxine Sodium) 175 Mcg Tab 175 Mcg PO DAILY Estrace (Estradiol) 2 Mg Tab 2 Mg PO DAILY Januvia (Sitagliptin Phosphate) 25 Mg Tab 25 Mg PO DAILY Review of Systems Except as stated in HPI: all other systems reviewed are Neg General / Constitutional: No: Fever Eyes: No: Visual changes HENT: Positive: Neck Pain, No: Headaches, Rhinorrhea, Congestion, Neck Stiffness Cardiovascular: No: Chest Pain or Discomfort, Dyspnea on exertion Respiratory: No: Cough, Shortness of Breath Gastrointestinal: No: Nausea, Vomiting, Diarrhea, Abdominal Pain Genitourinary: No: Dysuria Musculoskeletal: No: Pain Skin: No Rash Neurologic: Positive: Paresthesia (Right arm), No: Weakness, Focal Abnormalities, Change in Mentation, Slurred Speech, Sensory Disturbance Psychiatric: No: Depression Endocrine: No: Polydipsia Hematologic/Lymphatic: No: Easy Bruising Physical Exam Narrative General: The patient is a well-developed well-nourished female in no acute distress. Head and Neck exam: Head is normocephalic atraumatic. Eyes: EOMI, pupils are equal round and reactive to light. Nose: Midline septum with pink mucous membranes Mouth: Dentition unremarkable. Moist mucus membranes. Posterior oropharynx is not erythematous. No tonsillar hypertrophy. Uvula midline. Airway patent. Neck: The patient has a [place] collar on. This was gently removed. No palpable lymphadenopathy. No nuchal rigidity. No thyromegaly. The patient reports having paraspinal muscle tenderness on palpation along the right cervical paraspinal musculature. No spasm noted. No spinous process tenderness to palpation. No step-off or crepitus. No erythema or ecchymosis. She has Steri- Strips in place along the wound on the left side of her neck that appears to be in good repair without any signs of drainage, erythema, or edema. Cardiovascular: Regular rate and rhythm without murmurs, gallops, or rubs. No pulse deficit to the extremities on simultaneous auscultation and palpation of her radial artery. Lungs: Clear to auscultation bilaterally. No wheezes, rhonchi, or rales. Abdomen: Soft, without tenderness to palpation in all 4 quadrants of the abdomen. No guarding, rebound, or rigidity. Normal bowel sounds are audible. No tenderness on palpation of McBurney's point. Negative Cooper sign. Extremities: No clubbing, cyanosis, or edema. 2+ pulses in all 4 extremities. No calf tenderness on palpation. Less than 3 second capillary refill of her extremities. The patient has full range of motion of all of her extremities without any crepitus, erythema, ecchymosis, or deformity. Back: No spinous process tenderness to palpation. No costovertebral angle tenderness to palpation. Neurologic Exam: Cranial nerves 2-12 were intact on exam. Strength is 5/5 in all 4 extremities. The patient reports having tingling sensations in the right upper extremity and a glove distribution. Skin Exam: No rash noted. Intact skin that is warm and dry. Data Data Last Documented VS Vital Signs Date Time Temp Pulse Resp B/P (MAP) Pulse Ox O2 Delivery O2 Flow Rate FiO2 12/25/17 23:18 226/91 (136) 12/25/17 17:33 97.3 [address] Cerv Spine W/O Contrast (12/25/17 ) Shoulder, Complete (>2vws) (12/25/17 ) Ketorolac Inj (Toradol Inj) (12/26/17 00:45) MDM Medical Decision Making Medical Screen Exam Complete: Yes Emergency Medical Condition: Yes Medical Record Reviewed: Yes Differential Diagnosis Disruption of cervical spine fusion hardware, versus new cervical spine injury, versus muscle strain, versus right shoulder fracture, versus dislocation, versus cervical radiculopathy Narrative Course During the course of the patient's emergency department visit, the patient's history, examination, and differential diagnosis were reviewed with the patient. The patient was placed on a quality assurance monitor with oximetry and frequent blood pressure monitoring. The patient prior to arrival back in the emergency department bed had a CT scan of the neck ordered and a right shoulder x-ray ordered after initial evaluation on triage. Radiology studies were reviewed and remarkable for a cervical spine CT that shows no evidence of compression or spondylolisthesis, intact alignment at the ECF levels of C5 through 7, right epidural impression at C4-5 suggesting disc bulging or protrusion that is similar to a prior CT done on December 06, 2017. No foraminal stenosis. Shoulder x-ray showed no evidence of fracture or dislocation. The patient's symptoms are consistent with an exacerbation of her postoperative pain. A review of the record reveals that she was seen on December 06 and had imaging done at that time and was at that time complaining of tingling sensations in the right arm. The patient denies following up with Dr. Thurman as an outpatient since the surgery. She is encouraged to call his office in the morning for a follow-up appointment as soon as possible. She is instructed to continue with a [place] collar as previously recommended by her neurosurgeon. As she reports that she is out of her hydrocodone she was given a small prescription for this. She is instructed to continue the Flexeril that she was previously taking for muscle relaxation as needed. As she reports that her gait has been less stable since his surgery I recommend that she uses an assistive device for stabilization such as a cane. The patient reports that she does not have a ride home. The patient was instructed that it would not be safe for a narcotic to be administered in the emergency department without her having a ride home. The patient reports that she will obtain a taxi to transport her home. The patient was given a dose of Toradol 15 mg IM. The patient will be given a prescription for hydrocodone when she arrives back home. The patient is resting comfortably and feels better, is alert and in no distress. The patient's results and examination findings were discussed with the patient. The repeat examination is unremarkable and benign. The history, exam, diagnostic testing, and current condition do not suggest any significant pathology to warrant further testing, continued ED treatment, admission, or surgical evaluation at this point. The vital signs have been stable. The patient does not have uncontrollable pain, intractable vomiting, or other significant symptoms. The patient's condition is stable and appropriate for discharge. The patient will pursue further outpatient evaluation with a primary care physician or other designated or consulting physician as indicated in the discharge instructions. The patient expressed understanding and was agreeable with this plan. Diagnosis Primary Impression: Neck pain Additional Impression: Paresthesia of right arm Referrals: Wilbur Thurman MD 1 day Patient Instructions: General Instructions, Neck Pain (ED) Additional Instructions: Use a 4 prong walker for stability with turning to prevent recurrent falls. The patient reported that she would obtain 1 of these from the [facility]. Med/Other Pt SpecificInfo: Prescription(s) given Scripts Hydrocodone-Acetaminophen (Hydrocodone-Acetaminophen) 5-325 mg Tab 1 TAB PO Q6H Y for PAIN, #9 TAB 0 Refills Prov: Pili Conte MD 12/26/17 Disposition: 01 DISCHARGE HOME Condition: Stable Pili Conte MD Dec 26, 2017 01:04
[2017-12-26] MEDS ORDERED: CARVEDILOL 6.25 MG TAB PO ONE (01:15)
[2017-12-26 01:18] VITALS: BP 163/64; PULSE 71; RESP 17; O2SAT 97
== END 2017-12-26 01:35 | disposition home or self-care (01) ==
LOC: NEPE 17:06
DX: M54.2 Cervicalgia (principal); R20.2 Paresthesia of skin; I25.10 Atherosclerotic heart disease of native coronary artery without angina pectoris; I10 Essential (primary) hypertension; K74.69 Other cirrhosis of liver; E11.9 Type 2 diabetes mellitus without complications; M19.90 Unspecified osteoarthritis, unspecified site; F32.9 Major depressive disorder, single episode, unspecified; Z95.1 Presence of aortocoronary bypass graft; E78.00 Pure hypercholesterolemia, unspecified; Z79.01 Long term (current) use of anticoagulants; Z86.711 Personal history of pulmonary embolism; Z95.5 Presence of coronary angioplasty implant and graft; Z88.5 Allergy status to narcotic agent; Z88.8 Allergy status to other drugs, medicaments and biological substances
CPT/HCPCS: 72125; 73030; 96372; 99284; J1885

== ENCOUNTER 2018-02-12 11:29 | Emergency (ER) | payer OTHER ==
[~2018-02-12] VITALS: Ht 167.6 cm; Wt 72.7 kg
[2018-02-12 11:42] VITALS: BP 160/82; PULSE 81; RESP 20; TEMP 97.8; O2SAT 95
--- NOTE | 2018-02-12 12:42 | RADRPT ---
EXAM DATE/TIME: 02/12/2018 12:28 [place] COMPARISON: No previous studies available for comparison. INDICATIONS : Chest pain. MEDICAL HISTORY : Cardiovascular disease. Hypertension Diabetes mellitus type II. SURGICAL HISTORY : Fusion, cervical. CABG. ENCOUNTER: Initial ACUITY: 3 days PAIN SCORE: 7/10 LOCATION: Left upper chest FINDINGS: PA and lateral views of the chest demonstrate the lungs to be symmetrically aerated without evidence of mass, infiltrate or effusion. Status post CABG. Coronary artery stents. The cardiomediastinal cont ours are unremarkable. Osseous structures are intact. CONCLUSION: No acute disease. Hawk Hilton MD on February 12, 2018 at 12:41 Board Certified Radiologist. This report was verified electronically.
[2018-02-12 13:02] VITALS: BP 195/88; PULSE 78; RESP 14; O2SAT 98
--- NOTE | 2018-02-12 13:09 | PD ---
HPI Chief Complaint: Chest Pain Time Seen by Provider: 13:04 Travel History International Travel<30 days: No Contact w/Intl Traveler<30days: No Traveled to known affect area: No History of Present Illness HPI 57-year-old female with PMH of DM, CABG, HTN, migraines, anterior cervical fusion presents to the ED for evaluation of 1 week history of 9/10 pain of anterior head accompanied by dizziness, blurred vision, nausea. Gradual onset, similar to previous migraines. Patient also complains of anterior chest pain that radiates to the back, onset concurrent with her migraine. She denies fever , chills, cough, SOB, recent injury or overuse. She states that she has been taking norco prescribed by Dr. Thurman with no improvement of symptoms, last dose yesterday. She states that she has discussed initiation of Imitrex with Dr. Tracy, her neurologist, but needs clearance from her human performance consultant first. She has taken Imitrex in the past. She states that she had a negative stress test and heart cath in October. PFSH Past Medical History Hx Anticoagulant Therapy: Yes (Plavix) Arthritis: Yes Asthma: No Anxiety: Yes Depression: Yes Heart Rhythm Problems: No Cancer: No Cardiac Catheterization: Yes Cardiovascular Problems: Yes (HTN, CAD, CABGx4) High Cholesterol: Yes Chest Pain: Yes Congestive Heart Failure: No Cirrhosis: Yes COPD: No Cerebrovascular Accident: No Coronary Artery Disease: Yes Diabetes: Yes Diminished Hearing: No Endocrine: Yes (NON ALCOHOLIC CIRRHOSIS OF LIVER) Genitourinary: No Headaches: Yes Hepatitis: No Hiatal Hernia: No Hypertension: Yes Immune Disorder: No Kidney Stones: No Musculoskeletal: Yes Neurologic: Yes (PAIN AND NUMBNESS, RUPTURED AND BULGING DISCS) Psychiatric: No Reproductive: No Respiratory: Yes (PE-2011) Immunizations Current: Yes Migraines: Yes Renal Failure: No Seizures: No Sleep Apnea: No Thyroid Disease: Yes Menopausal: Yes : 2 Para: 1 Miscarriage: 1 Past Surgical History Abdominal Surgery: Yes (GALLBLADDER) AICD: No Arteriovenous Shunt: No Body Medical Devices: [address] Cardiac Surgery: Yes (OPEN HEART) Cholecystectomy: Yes Coronary Artery Bypass Graft: Yes (4 VESSELS-2011) Coronary Stent: Yes (X2-2011) Ear Surgery: No Endocrine Surgery: Yes (THRYROID) Eye Surgery: No Gynecologic Surgery: Yes (HYSTERECTOMY) Hysterectomy: Yes Insulin Pump: No Joint Replacement: No Oral Surgery: No Pacemaker: No Tonsillectomy: Yes (1971) Other Surgery: Yes Social History Alcohol Use: No Tobacco Use: No Substance Use: No Allergies-Medications (Allergen,Severity, Reaction): Coded Allergies: butorphanol (Verified Allergy, Severe, Hallucinations, 02/12/18) codeine (Verified Allergy, Severe, Hives, 02/12/18) fentanyl (Verified Allergy, Severe, Confusion, 02/12/18) morphine (Verified Allergy, Severe, Hallucinations, 02/12/18) Reported Meds & Prescriptions Reported Meds & Active Scripts Active [place] (Hydrocodone-Acetaminophen) 10-325 Mg Tab 1 Tab PO Q6H PRN Plavix (Clopidogrel Bisulfate) 75 Mg Tab 75 Mg PO DAILY Restart Plavix on 11/28/17 Reported Lasix (Furosemide) 20 Mg Tab 20 Mg PO EVERY OTHER DAY Simvastatin 40 Mg Tab 40 Mg PO HS Amitriptyline (Amitriptyline HCl) 150 Mg Tab 150 Mg PO HS Victoza Inj (Liraglutide Inj) 18 Mg/3 Ml Pen 1.8 Mg SQ HS Aspirin 81 Mg Chew 81 Mg CHEW DAILY Tizanidine (Tizanidine HCl) 4 Mg Cap 4 Mg PO DAILY Valium (Diazepam) 5 Mg Tab 5 Mg PO BID PRN Ambien (Zolpidem Tartrate) 10 Mg Tab 10 Mg PO HS PRN Lexapro (Escitalopram Oxalate) 20 Mg Tab 20 Mg PO DAILY Protonix (Pantoprazole Sodium) 20 Mg Tab 20 Mg PO HS Amlodipine (Amlodipine Besylate) 10 Mg Tab 10 Mg PO DAILY Coreg (Carvedilol) 6.25 Mg Tab 6.25 Mg PO BID Hydrocodone-Acetaminophen 10-325 mg Tab 1 Tab PO Q4H PRN Synthroid (Levothyroxine Sodium) 175 Mcg Tab 175 Mcg PO DAILY Estrace (Estradiol) 2 Mg Tab 2 Mg PO DAILY Januvia (Sitagliptin Phosphate) 25 Mg Tab 25 Mg PO DAILY Review of Systems Except as stated in HPI: all other systems reviewed are Neg Physical Exam Narrative GENERAL: Well-nourished, well-developed white female in NAD. SKIN: Focused skin assessment warm/dry. HEAD: Normocephalic. EYES: No scleral icterus. No injection or drainage. NECK: Supple, trachea midline. No JVD or lymphadenopathy. CARDIOVASCULAR: Regular rate and rhythm without murmurs, gallops, or rubs. CHEST: Nontender throughout without deformity or crepitus. No retractions or use of accessory muscles. RESPIRATORY: Breath sounds equal bilaterally. GASTROINTESTINAL: Abdomen soft, non-tender, nondistended. Active bowel sounds. MUSCULOSKELETAL: No cyanosis, or edema. NEUROLOGICAL: Awake and alert. Cranial nerves II through XII intact. Motor and sensory grossly within normal limits. Five out of 5 muscle strength in all muscle groups. Normal speech. BACK: Nontender without obvious deformity. No CVA tenderness. Data Data Last Documented VS Vital Signs Date Time Temp Pulse Resp B/P (MAP) Pulse Ox O2 Delivery O2 Flow Rate FiO2 02/12/18 15:39 76 16 144/82 (102) 98 Room Air 02/12/18 11:42 97.8 Orders Orders Electrocardiogram (02/12/18 11:45) Basic Metabolic Panel (Bmp) (02/12/18 11:45) Ckmb (Isoenzyme) Profile (02/12/18 11:45) Complete Blood Count With Diff (02/12/18 11:45) Magnesium (Mg) (02/12/18 11:45) Prothrombin Time / Inr (Pt) (02/12/18 11:45) Act Partial Throm Time (Ptt) (02/12/18 11:45) Troponin I (02/12/18 11:45) Chest, Pa & Lat (02/12/18 11:45) Ct Brain W/O Iv Contrast(Rout) (02/12/18 ) Ecg Monitoring (02/12/18 13:30) Iv Access Insert/Monitor (02/12/18 13:30) Oximetry (02/12/18 13:30) Sodium Chloride 0.9% Flush (Ns Flush) (02/12/18 13:30) Ketorolac Inj (Toradol Inj) (02/12/18 13:30) Prochlorperazine Inj (Compazine Inj) (02/12/18 13:30) Diphenhydramine Inj (Benadryl Inj) (02/12/18 13:30) Sodium Chlorid 0.9% 500 Ml Inj (Ns 500 M (02/12/18 14:45) Acetamin-Hydrocod 325-10 Mg ([place] 10-32 (02/12/18 15:00) Ed Discharge Order (02/12/18 16:25) Labs Laboratory Tests Test 02/12/18 12:00 White Blood Count 8.1 TH/MM3 Red Blood Count 4.68 MIL/MM3 Hemoglobin 12.3 GM/DL Hematocrit 37.4 % Mean Corpuscular Volume 79.8 FL Mean Corpuscular Hemoglobin 26.2 PG Mean Corpuscular Hemoglobin Concent 32.8 % Red Cell Distribution Width 16.2 % Platelet Count 144 TH/MM3 Mean Platelet Volume 9.3 FL Neutrophils (%) (Auto) 61.1 % Lymphocytes (%) (Auto) 30.0 % Monocytes (%) (Auto) 6.4 % Eosinophils (%) (Auto) 1.6 % Basophils (%) (Auto) 0.9 % Neutrophils # (Auto) 5.0 TH/MM3 Lymphocytes # (Auto) 2.4 TH/MM3 Monocytes # (Auto) 0.5 TH/MM3 Eosinophils # (Auto) 0.1 TH/MM3 Basophils # (Auto) 0.1 TH/MM3 CBC Comment DIFF FINAL Differential Comment Prothrombin Time 10.6 SEC Prothromb Time International Ratio 1.0 RATIO Activated Partial Thromboplast Time 26.4 SEC Blood Urea Nitrogen 13 MG/DL Creatinine 1.01 MG/DL Random Glucose 129 MG/DL Calcium Level 9.1 MG/DL Magnesium Level 1.8 MG/DL Sodium Level 139 MEQ/L Potassium Level 3.8 MEQ/L Chloride Level 103 MEQ/L Carbon Dioxide Level 29.4 MEQ/L Anion Gap 7 MEQ/L Estimat Glomerular Filtration Rate 56 ML/MIN Total Creatine Kinase 66 U/L Troponin I LESS THAN 0.02 NG/ML MDM Medical Decision Making Medical Screen Exam Complete: Yes Emergency Medical Condition: Yes Differential Diagnosis migraine versus hypertension versus ICH versus ACH versus other Narrative Course 57-year-old female with PMH of DM, CABG, HTN, migraines, anterior cervical fusion presents to the ED for evaluation of 1 week history of 9/10 pain of anterior head accompanied by dizziness, blurred vision, nausea. Similar to previous migraines. Patient also complains of anterior chest pain that radiates to the back, onset concurrent with her migraine. She states that she has been taking norco prescribed by Dr. Thurman with no improvement of symptoms, last dose yesterday. She states that she had a negative stress test and heart cath in October. The patient ASA and Plavix daily. Patient afebrile, pulse 81, O2 sats 95% on room air, BP 160/82 on presentation. On exam there are no focal neuro deficits. Chest is CTA B, no appreciable M/R/G. No tenderness to palpation over the precordium. IV was established. Patient was administered half liter normal saline, 50 mg Benadryl, 10 mg Compazine and 30 mg Toradol IV. EKG rate 80, sinus rhythm. NJ 137, QRS 109, QTC 422 ms. Normal axis. Incomplete RBBB, no acute ST changes. Reviewed by Dr. Perez. [place] PE score 0. CXR: No acute disease per radiology read. Cardiac enzymes negative 1. CBC unremarkable. CMP without concerning abnormalities. INR 1.0. CT brain: Stable negative noncontrast head CT per radiology read. On recheck patient states the pain is improved to 7/10. She was administered 10 mg [place] by mouth. I spoke with Dr. Thurman. He is concerned for opiate dependence in the patient. He states that she has had 2 post operative [address]s and an MRI. He does not think that the patient requires any further emergent radiological evaluation. He recommends a short course of pain medications and follow up with the neurologist and pain management. On recheck the patient states "I was hoping to feel much better." I discussed my conversation with Dr. Thurman and recommended the patient follow-up with the pain management provider as well as the neurologist. I provided her with a short course of [place]. She states that the neurologist had mentioned Botox injections for headache. I recommended that she consult with him again regarding treatment as it is much safer than taking opiates. Patient is in agreement with the plan. She is stable and discharged home. Diagnosis Primary Impression: Chronic migraine Additional Impression: Chest pain in adult Referrals: Neurologist Additional Instructions: Rest, hydrate. Avoid known stressors as possible. Resume at home medications as prescribed. Take [place] as prescribed. Follow up with neurology and pain management as discussed. Return to the ED for worsening symptoms or any urgent/ emergent medical condition. Med/Other Pt SpecificInfo: Prescription(s) given Scripts Hydrocodone-Acetaminophen ([place]) 10-325 Mg Tab 1 TAB PO Q6H Y for PAIN, #10 TAB 0 Refills Prov: Asher Perez MD 02/12/18 Disposition: 01 DISCHARGE HOME Condition: Stable Tracy Mora Feb 12, 2018 13:09
[2018-02-12 13:10] LABS: BASOPHIL # 0.1 TH/MM3 (0-0.2); BASOPHIL % 0.9 % (0.0-2.0); EOSINOPHIL # 0.1 TH/MM3 (0-0.4); EOSINOPHIL % 1.6 % (0.0-4.0); HEMATOCRIT 37.4 % (35.0-46.0); HEMOGLOBIN 12.3 GM/DL (11.6-15.3); LYMPHOCYTE # 2.4 TH/MM3 (1.0-4.8); MEAN CELL VOLUME 79.8 FL (80.0-100.0); MEAN CORPUSCULAR HEMOGLOBIN 26.2 PG (27.0-34.0); MEAN CORPUSCULAR HGB CONC 32.8 % (32.0-36.0); MEAN PLATELET VOLUME 9.3 FL (7.0-11.0); MONO % 6.4 % (0.0-8.0); MONOCYTE # 0.5 TH/MM3 (0-0.9); NEUT % 61.1 % (16.0-70.0); PLATELET COUNT 144 TH/MM3 (150-450); RED BLOOD COUNT 4.68 MIL/MM3 (4.00-5.30); RED CELL DISTRIBUTION WIDTH 16.2 % (11.6-17.2); WHITE BLOOD COUNT 8.1 TH/MM3 (4.0-11.0)
[2018-02-12 13:19] LABS: PROTHROMBIN TIME - PATIENT 10.6 SEC (9.8-11.6)
[2018-02-12 13:22] LABS: BICARBONATE 29.4 MEQ/L (21.0-32.0); BLOOD UREA NITROGEN 13 MG/DL (7-18); CALCIUM 9.1 MG/DL (8.5-10.1); CHLORIDE 103 MEQ/L (98-107); CREATININE 1.01 MG/DL (0.50-1.00); GLOMERULAR FILTRATION RATE 56 ML/MIN (>89); GLUCOSE,RANDOM 129 MG/DL (74-106); MAGNESIUM 1.8 MG/DL (1.5-2.5); SODIUM (NA) 139 MEQ/L (136-145)
[2018-02-12 13:25] LABS: TROPONIN I LESS THAN 0.02 NG/ML (0.02-0.05)
[2018-02-12] MEDS ORDERED: diphenhydrAMINE HCL 50 MG/ML VIAL IVP ONE (13:30)
[2018-02-12] MEDS ORDERED: SODIUM CHLORIDE 0.9% FLUSH 10 ML FLUSH IVF PRN (13:30)
[2018-02-12] MEDS ORDERED: PROCHLORPERAZINE INJ 10 MG/2 ML VIAL IVP ONE (13:30)
[2018-02-12] MEDS ORDERED: KETOROLAC TROMETHAMINE 30 MG/ML (IVP) VIAL IVP ONE (13:30)
--- NOTE | 2018-02-12 14:14 | RADRPT ---
EXAM DATE/TIME: 02/12/2018 14:03 [place] COMPARISON: CT BRAIN W/O CONTRAST, June 27, 2017, 15:33. INDICATIONS : Cephalgia. RADIATION DOSE: 36.79 CTDIvol (mGy) MEDICAL HISTORY : Cardiovascular disease. Hypertension. Glossopharnygeal Neuralgia, Bulging discs. SURGICAL HISTORY : CABG Hysterectomy. Cholecystectomy. Surgery to L4-L5 ENCOUNTER: Initial ACUITY: 1 day PAIN SCALE: 9/10 LOCATION: cranial TECHNIQUE: Multiple contiguous axial images were obtained of the head. Using automated exposure control and adj ustment of the mA and/or kV according to patient size, radiation dose was kept as low as reasonably a chievable to obtain optimal diagnostic quality images. DICOM format image data is available electro nically for review and comparison. FINDINGS: CEREBRUM: The ventricles are normal for age. No evidence of midline shift, mass lesion, hemorrhage or acute in farction. No extra-axial fluid collections are seen. POSTERIOR FOSSA: The cerebellum and brainstem are intact. The 4th ventricle is midline. The cerebellopontine angle i s unremarkable. EXTRACRANIAL: The visualized portion of the orbits is intact. SKULL: The calvaria is intact. No evidence of skull fracture. CONCLUSION: Stable negative noncontrast head CT Quinton Cruz MD on February 12, 2018 at 14:09 Board Certified Radiologist. This report was verified electronically.
[2018-02-12] MEDS ORDERED: SODIUM CHLORID 0.9% 500 ML INJ 500 ML IV ONE (14:45)
[2018-02-12] MEDS ORDERED: ACETAMINOPHEN/HYDROcodone 325 MG/10 MG TAB PO ONE (15:00)
[2018-02-12 15:39] VITALS: BP 144/82; PULSE 76; RESP 16; O2SAT 98
[2018-02-12] MEDS ORDERED: HYDR-3366 PO (16:24)
--- NOTE | 2018-02-12 20:51 | EKG ---
Date Performed: 02/12/2018 Time Performed: 11:52:29 PTAGE: 57 years EKG: Sinus rhythm INCOMPLETE RIGHT BUNDLE BRANCH BLOCK BORDERLINE ECG NO PREVIOUS TRACING DOCTOR: Paul Angulo Interpretating Date/Time 02/12/2018 20:50:27
== END 2018-02-12 17:45 | disposition home or self-care (01) ==
LOC: NEPE 11:29
DX: G43.909 Migraine, unspecified, not intractable, without status migrainosus (principal); R07.9 Chest pain, unspecified; I45.10 Unspecified right bundle-branch block; I10 Essential (primary) hypertension; I25.10 Atherosclerotic heart disease of native coronary artery without angina pectoris; E11.9 Type 2 diabetes mellitus without complications; E78.00 Pure hypercholesterolemia, unspecified; F32.9 Major depressive disorder, single episode, unspecified; Z95.5 Presence of coronary angioplasty implant and graft; Z86.711 Personal history of pulmonary embolism; Z88.5 Allergy status to narcotic agent; Z79.02 Long term (current) use of antithrombotics/antiplatelets; Z79.899 Other long term (current) drug therapy
CPT/HCPCS: 70450; 71046; 80048; 82550; 83735; 84484; 85025; 85610; 85730; 93005; 96374; 96375; 99285; J0780; J1200; J1885; J7040